=== PATIENT | male | born 1955 | race Caucasian/White ===

== ENCOUNTER 2024-06-12 08:56 | Outpatient (REF) | payer MEDICARE, SELFPAY ==
[2024-06-12 11:19] LABS: Blood Urea Nitrogen 15 mg/dL (9-16); Estimated Glomerular Filt Rate > 60
== END 2024-06-12 08:57 | disposition home or self-care (01) ==
LOC: HO.LAB 08:56
PROVIDERS: Visit Provider Surgery Vascular Surgery
DX: I71.43 Infrarenal abdominal aortic aneurysm, without rupture (principal)
CPT/HCPCS: 36415; 82565; 84520; 99202

== ENCOUNTER 2024-06-12 08:56 | Outpatient (AMB) | payer MEDICARE, SELFPAY ==
--- NOTE | 2024-06-12 09:08 | A.OFFVIS_ITS ---
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 Incidental finding after appendix burst. Patient states he has tender spot at the bottom of his sternum. No other complaints. 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 He has been previously managed by Dr. Nunez for this aneurysm at [facility] with surveillance scans due to its progressive enlargement. The patient denies any accompanying cardiovascular symptoms such as chest pain or arrhythmias and has no history of diabetes or renal disorders but has a significant family history of aneurysms, as his father experienced a thoracic aneurysm. He is a current smoker, consuming one pack of cigarettes per day. He has undergone multiple surgeries over the past year, including an appendectomy, inguinal hernia repairs, and a right knee replacement. Recently, the patient had to modify his health insurance, affecting his continuity in care. He now presents to us for vascular evaluation Review of Systems Const All systems reviewed & are unremarkable except as noted in HPI and below Reports no additional complaints ENT Reports Normal hearing present Card Denies chest pain, Denies chest pain at rest, Denies chest pain with activity and Denies pedal edema Resp Denies cough GI Denies abdominal pain Musc Denies abnormal gait, Denies muscle cramps and Denies radiating pain into limb Skin/Breast Denies skin ulcer and Denies wounds Neuro Reports Normal hearing present and Denies abnormal gait Psych Reports no additional complaints Physical Exam Const General: cooperative, healthy appearing and comfortable Orientation/consciousness: oriented to person, oriented to place and oriented to time HEENT Head: Yes normal to inspection Neck Neck: Yes normal visual inspection Carotids: no bruits Chest Chest palpation & inspection: normal inspection of the chest Resp Effort & Inspection: normal respiratory effort and able to speak in complete sentences Auscultation: clear to auscultation bilaterally, no crackles, no rales, no rhonchi and no wheezes Cardio Rate: regular rate Rhythm: regular rhythm Heart sounds: S1 normal heart sound present and S2 normal heart sound present Bruits: no carotid bruits Peripheral pulses: Peripheral pulses 2+ throughout GI Inspection: Yes normal to inspection Skin Wounds: no wounds Hair: normal Neuro General: oriented to person, oriented to place and oriented to time Cranial nerves: Yes CN's II-XII intact bilaterally and Yes Normal hearing present Cognition (Neuro): normal cognition Motor exam (neuro): 5/5 motor strength present throughout Extrem Other: venous exam: No significant superficial varicosities or spider telangiectasias, minimal edema General: No clubbing, No cyanosis and No edema Psych Appearance: grossly normal Mental Status: mental status grossly normal Speech and movement: Normal speech and movement present Results Reviewed Results Reviewed: CT scan written report from [facility] dated 2024 demonstrates a 5.1 x 5.5 cm abdominal aortic aneurysm. Neck of aneurysm is 1.3 cm from left lower renal artery. Aneurysm length is 9.5 cm. Written report reviewed only Assessment & Plan Assessment & Plan (1) AAA (abdominal aortic aneurysm) without rupture: Code(s): I71.40 - Abdominal aortic aneurysm, without rupture, unspecified Category: Medical Qualifiers: Abdominal aorta location: infrarenal aorta Qualified Code(s): I71.43 - Infrarenal abdominal aortic aneurysm, without rupture Plan: During the consultation, we discussed the current status of the patient's abdominal aortic aneurysm, highlighting the need for an updated CT scan to guide our surgical management decision. I explained the potential intervention options, notably the differences between open surgical repair and endovascular stent grafting, including the risks, benefits, and recovery times associated with each. The patient was informed about the role his smoking history plays in his vascular health and the importance of smoking cessation. In short we will get a CT scan in plan next steps of treatment from there. Patient was in agreement. We will try to expedite testing as soon as possible. Thank you for allowing us to assist in his care. The patient had an opportunity to ask questions regarding the treatment plan. All questions were answered. Imaging studies, laboratory studies and physical exam results were discussed and reviewed in detail. No major barriers to understanding were identified. The patient expressed understanding and agreement with the above treatment plan. The patient is aware they should contact our office by phone for worsening of the current condition or the appearance of new symptoms. Thank you for allowing me to participate in the vascular care of this patient. If you have any questions or concerns regarding the treatment for the above condition please do not hesitate to contact me. The office telephone contact is [phone]. This note is constructed using voice recognition software. While every effort has been made to ensure accuracy, electrical engineering director errors may have been included. Thank you for allowing me to participate in the care of your patient. Yours sincerely, Tho Storey MD, FACS, R.P.V.I. Orders: Orders Blood Urea Nitrogen Today I71.43 - Infrarenal abdominal aortic aneurysm, without rupture Creatinine Today I71.43 - Infrarenal abdominal aortic aneurysm, without rupture CT angio abdomen pelvis 1 Day I71.43 - Infrarenal abdominal aortic aneurysm, without rupture Patient Instructions: - Obtain the prescribed CT scan at [facility]s second floor. - Prior to the CT scan, complete blood work on the first floor of the [facility]. - Be prepared for additional specialist consultations to finalize the surgical plan. - Monitor and report any changes in symptoms, particularly if experiencing new or worsening pain. - Reduce smoking routine in preparation for surgery and for overall vascular health improvement. - Follow up with care providers for follow-up appointments and consultations as scheduled. Coding Level of Care Code New Pt Level 4 (41716) Complex EM visit Add On G2211 Diagnoses Infrarenal abdominal aortic aneurysm (AAA) without rupture I71.43 Abdominal aorta location: infrarenal aorta
--- OUTSIDE RECORDS SUMMARY | 2024-06-12 09:45 | XMS_ITS | Encounter Summary ---
Author Organization [employer] Address [address] [facility] 7t [place] [address] Care Team Providers Care Skeet Operator Name Role Phone Kathy Hernandez PA-C Primary Care Provider Unav ailable Encounter Details Date Type Department Care Team (Late st Contact Info) Description 08/02/2023 Orders Only [facility] MEDICAL [address] [place] [address] Kathy Hernandez PA-C Arthralgia of multiple joints Social History Tobacco Use Types Packs/Day Years Used Date Smoking Tobacco: Some Days Cigarettes Smokeless Tobacco: Never Alcohol Use Standard Drinks/Week Comments Not Asked 0 (1 standard drink = 0.6 oz pur e alcohol) moderate Sex and Gender Information Value Date Recorded Sex Assigned at Male 05/07/2022 1:28 PM EST Legal Sex Male 5:35 PM EDT Gender Identity Male 05/07/2022 1:28 PM EST Sexual Orientation Choose not to disclose 2022 1:28 PM EST documented as of this encounter Plan of Treatment Not on file documented as of this encounter Visit Diagnoses Diagnosis Arthralgia of multiple joints Pain in joint, multiple sites documented in this encounter Care Teams Skeet Operator Relationship Specialty Start Date End Date Kathy Hernandez PA-C PCP - General Family Medicine 05/06/22 documented as of this encounter
--- OUTSIDE RECORDS SUMMARY | 2024-06-12 09:45 | XMS_ITS | Encounter Summary ---
Author Organization [employer] Address [address] [facility] [address] [place] [address] Care Team Providers Care Glazier Apprentice Name Role Phone Kathy Hernandez PA-C Primary Care Provider Unav ailable Reason for Referral * Consultation (Urgent) - Pending Review Specialty Diagnoses / Procedures Referred By Contdunia t Referred To Contact Vascular Surgery Diagnoses Abdominal aortic aneurysm (AAA) without rupture, unspecified part ([facility]/HCC) Ashley Sanchez FNP [address] [place] [address] Phone: tel: fax: Tho Storey MD [address] [place] [address] Drive [address] [place] [address] Phone: tel: fax: Referral ID Status Reason Start Date Expiration Date Visits Requested Visits Authorized [id number] Pending Review Specialty Services Required 04/25/2024 04/25/2025 1 1 Reason for Visit * Reason Onset Date Comments Referral 04/23/2024 Encounter Details Date Type Department Care Team (Late st Contact Info) Description 04/23/2024 Telephone [facility] MEDICAL [address] [place] [address] Kathy Hernandez PA-C Referral Social History Tobacco Use Types Packs/Day Years Used Date Smoking Tobacco: Some Days Cigarettes Smokeless Tobacco: Never Alcohol Use Standard Drinks/Week Comments Not Asked 0 (1 standard drink = 0.6 oz pur e alcohol) moderate Alcohol Answer Date Recorded Frequency of Alcohol Consumption Not on file 01/09/2024 Average Number of Drinks Not on file 024 Frequency of Binge Drinking Not on file 12/20 Score 0 01/09/2024 Housing Stability Answer Date Recorded What is your housing situation today? I have daniel mahoney 10/13/[address] you li ve. Do you have problems with any of the following? None of the above 10/13/2023 Food Insecurity Answer Date Recorded Within the past 12 months, y ou worried that your food would run out before you got money to buy more: Never True 10/13/2023 Within the past 12 months,th e food you bought just didn't last and you didn't have enough money to get more: Never True Transportation Answer Date Recorded In the past 12 months, has l ack of transportation kept you from medical appts, meetings, work or from getting things needed for daily living? No 10/13/2023 Utilities Answer Date Recorded In the past 12 months, has t he electric, gas, oil or water company threatened to shut off services in your home? No 10/13/2023 Depression Answer Date Recorded Patient Health Questionnaire-2 Score 0 10/13/2023 Internet Access Answer Date Recorded Internet Access Q1 Yes 11/21/2023 Internet Access Q2 Not on file 11/21/2023 Sex and Gender Information Value Date Recorded Sex Assigned at Male 05/07/2022 1:28 PM EST Legal Sex Male 5:35 PM EDT Gender Identity Male 05/07/2022 1:28 PM EST Sexual Orientation Choose not to disclose 2022 1:28 PM EST documented as of this encounter Miscellaneous Notes * Telephone Encounter - Carolyn Childers - 05/15/2024 1:40 PM EST Called [facility] and refaxed referral. LVM for patient with update. * Telephone Encounter - Pattie García - 05/08/2024 9:23 AM EST Pt LMOM, has not heard back about referral and unsure how to proceed * Telephone Encounter - Anika Rothman LPN - 04/25/2024 2:31 PM EST Pt notified that referral has been placed. * Telephone Encounter - Anika Rothman LPN - 04/25/2024 2:29 PM EST Images from the original note were not included. DAVID Marino to [facility] 04/25/24 2:13 PM Ordered, please let patient know , referrals please help coordinate previously for urgent referral/transfer * Telephone Encounter - Ruma Schaffer RN - 04/25/2024 12:26 PM EST In summary: pt has been followed by vascular surgery for an abdominal aneurysm since it was discovered incidentally during a hospitalization for appendicitis December 2022. Most recent OV was 04/11/24 with [facility] surgeon Bruno. Note is in chart. Note and pt's understanding suggest that the aneurysm is growing and it is time to do something about it. Note states pt should have a stress test prior to scheduling abdominal aneurysm repair. After this visit, pt was notified that his insurance is no longer taken by [facility]. He was told to geta new referral to [facility] vascular surgeon MD Storey. Pt wants to get this going RADHA. He has [employer] [facility] Medicare. Pt seemed a bit unsure if he still has Medicaid as well. I offered a call from health ins navigator to sort this out but pt declined, stating he needs to focus on getting the aneurysm taken care of first. Pt says he goes to [place] for month of May, but it is unclear if he would stay in [place] to deal with aneurysm. Sending to covering PCP KG for urgent referral to [facility] MD Storey for abd aortic aneurysm. Consider referral to cardiology or wait for [place] provider to eval need for stress test. * Telephone Encounter - Ruma Schaffer RN - 04/25/2024 12:22 PM EST LM for CB from original caller Juani Tony at number provided. VM did not identify where she was calling from but search pulls up a [facility] surgical service. * Telephone Encounter - Wendy Vizcaino - 04/25/2024 11:23 AM EST Encounter on [facility] site: [facility] not contracted with insurance. Patient now how [employer] Medicare which is not contracted at [facility] and he does not have out of network benefits. Office gave patient the number to Dr. Storey at [place], phone [phone]. Office will fax his records when he has an office visit scheduled. * Telephone Encounter - Pattie García - 04/25/2024 9:53 AM EST Pt LMOM checking in about this * Telephone Encounter - Pattie García - 04/23/2024 2:38 PM EST [facility] LMOM Needs new vascular surgeon and echo; requesting cb to discuss faxes so he may continue getting treatment Cb# [phone] * Telephone Encounter - Pattie García - 04/23/2024 2:23 PM EST Pt LMOM 04/20 Will need a new referral for vascular tests/procedures because can no longer be in the [facility] program Anxious about getting new referral RADHA because he is in the middle of aneurysm treatment documented in this encounter Plan of Treatment Scheduled Referrals Name Type Priority Associated Diagnoses Orde r Schedule Referral to Vascular Surgery Outpatient Referral Urgent Abdominal aortic aneurysm (AAA) without rupture, unspecified part ([facility]) Expected: 04/25/2024 (Approximate), Expires: 04/25/2025 documented as of this encounter Visit Diagnoses Diagnosis Abdominal aortic aneurysm (AAA) without rupture, unspecified part ([facility])- Primary documented in this encounter Care Teams Glazier Apprentice Relationship Specialty Start Date End Date Kathy Hernandez PA-C PCP - General Family Medicine 05/06/22 documented as of this encounter
--- OUTSIDE RECORDS SUMMARY | 2024-06-12 09:45 | XMS_ITS | Encounter Summary ---
Author Organization [employer] Address [address] [place] [address] 7t [place] [address] Care Team Providers Care Spinning Frame Cleaner Name Role Phone Kathy Hernandez PA-C Primary Care Provider Unav ailable Encounter Details Date Type Department Care Team (Late st Contact Info) Description 04/14/2023 Orders Only [facility] [address] [place] [address] Kathy Hernandez PA-C Social History Tobacco Use Types Packs/Day Years [...] on file documented as of this encounter Procedures Procedure Name Priority Date/Time Associated Diagnosis Comments PATHOLOGY REPORT (HISTOPATHOLOGY) Routine 04/08/2023 documented in this encounter Results * Pathology Report (04/08/2023) Tissue us Kathy Hernandez PA-C LAB PATHOLOGY ORDERABLES Ed ited Result - Final documented in this encounter Visit Diagnoses Not on filedocumented in this encounter Care Teams Spinning Frame Cleaner Relationship Specialty Start Date End Date Kathy Hernandez PA-C PCP - General Family Medicine 05/06/22 documented as of this encounter
--- OUTSIDE RECORDS SUMMARY | 2024-06-12 09:45 | XMS_ITS | Encounter Summary ---
Author Organization [employer] Address [address] [facility] 7t [place] [address] Care Team Providers Care Webbing Inspector Name Role Phone Kathy Hernandez PA-C Primary Care Provider Unav ailable Encounter Details Date Type Department Care Team (Latest Contact Info) Description 01/14/2021 Abstract [facility] CONVERSIONS Dental, Provider, DDS Social History Tobacco Use Types Packs/Day Years Used Date Smoking Tobacco: Never Assessed Sex and Gender Information Value Date Recorded Sex Assigned at Male 05/07/2022 1:28 PM EST Legal Sex Male 5:35 PM EDT Gender Identity Male 05/07/2022 1:28 PM EST Sexual Orientation Choose not to disclose 2022 1:28 PM EST documented as of this encounter Plan of Treatment Not on file documented as of this encounter Visit Diagnoses Not on filedocumented in this encounter Care Teams Webbing Inspector Relationship Specialty Start Date End Date Kathy Hernandez PA-C PCP - General Family Medicine 05/06/22 documented as of this encounter
--- OUTSIDE RECORDS SUMMARY | 2024-06-12 09:45 | XMS_ITS | Encounter Summary ---
Author Organization [employer] Address [address] [facility] 7t [place] [address] Care Team Providers Care Sticker Hand Name Role Phone Kathy Hernandez PA-C Primary Care Provider Unav ailable Encounter Details Date Type Department Care Team (Late st Contact Info) Description 05/06/[address] [facility] MEDICAL [address] [place], [place] [id number] Kathy Hernandez PA-C Social History Tobacco Use [...] Procedure Name Priority Date/Time Associated Diagnosis Comments HEMOGLOBIN A1C Routine 07/20/2022 8:33 AM EDT COMPREHENSIVE METABOLIC PANEL Routine 07/20/2022 8:33 AM EDT documented in this encounter Results * (ABNORMAL) Comprehensive Metabolic Panel (07/20/2022 8:33 AM EDT) Glucose 127(H) (70-99) MG/DL [facility] BUN 13 (8-23) MG/DL [facility] Creatinine, Serum 1.2 (0.7-1.2) MG/DL [facility] Sodium 139 (133-145) MMOL/L [facility] Potassium 5.2 (3.6-5.2) MMOL/L [facility] Chloride 102 (98-107) MMOL/L [facility] Bicarbonate 23 (22-29) MMOL/L [facility] Anion Gap 14 (4-17) [facility] Albumin 4.6 (3.4-4.8) GM/DL [facility] Calcium 10.0 (8.6-10.5) MG/DL [facility] Bilirubin, Total 0.6 (0-1.2) MG/DL [facility] Total Protein 6.9 (6.2-8.2) GM/DL [facility] Albumin/Globulin Ratio 2.0 [facility] AST 29 (0-40) U/L [facility] Alkaline Phosphatase 72 (40-129) U/L [facility] ALT (SGPT) 53(H) (0-41) U/L [facility] eGFR Creatinine 67 ML/MIN/1.7 3 M2 [facility] Comment: Creatinine based estimated glomerular filtration (eGFR) in adults is calculated using the National Kidney Foundation recommended 2020 CKD-EPI equation. Estimates GFR from serum creatinine, age and sex. Testing performed or reported by [facility], a Service of [facility], [address] [place] [id number] Ann-Marie Cervantes MD, Cashier Wrapper [facility]# [id number] 07/20/2022 8:33 AM EDT 07/20/2022 8:34 AM EDT Kathy Hernandez PA-C LAB BLOOD ORDERAB[place] [address] * (ABNORMAL) Hemoglobin A1c (07/20/2022 8:33 AM EDT) Hemoglobin A1C 6.2(H) (4.0-5.6) % [facility] Comment: MONITORING: In known diabetic patients, hemoglobin A1c targets should be discussed with health care provider. DIAGNOSTIC USE: ??The [place] Diabetes Association (ADA) and the World Health Organization (WHO) recommend the use of HbA1c to diagnose diabetes using a threshold of 6.5%. Patients who have an HbA1c between 5.7% and 6.4% are considered at increased risk for developing diabetes in the future. CAUTION: Falsely low HbA1c results may be observed in patients with hemolytic anemia, homozygous forms of abnormal hemoglobin (e.g. SS, CC, SC), , recent blood loss or hemoglobin F greater than 7%. Fructosamine may be used as an alternate test in these cases. REFERENCE: ADA: Standards of Medical Care in Diabetes 2020, The Journal of Clinical and Applied Research and Education Volume 43, Supplement 1 Testing performed or reported by [facility], a Service of [facility], [address] [place] [id number] Ann-Marie Cervantes MD, Cashier Wrapper [facility]# [id number] 07/20/2022 8:33 AM EDT 07/20/2022 8:34 AM EDT Kathy Hernandez PA-C LAB BLOOD ORDERABLES Final Result [facility] [address] [place] [id number] documented in this encounter Visit Diagnoses Not on filedocumented in this encounter Care Teams Sticker Hand Relationship Specialty Start Date End Date Kathy Hernandez PA-C PCP - General Family Medicine 05/06/22 documented as of this encounter
--- OUTSIDE RECORDS SUMMARY | 2024-06-12 09:45 | XMS_ITS | Encounter Summary ---
Author Organization [employer] Address [address] [facility] 7t [place] [address] Care Team Providers Care Trademark Paralegal Name Role Phone Kathy Hernandez PA-C Primary Care Provider Unav ailable Encounter Details Date Type Department Care Team (Latest Contact Info) Description 07/07/2021 Abstract [facility] CONVERSION[facility] Dental, Provider, DDS Social [...] on filedocumented in this encounter Care Teams Trademark Paralegal Relationship Specialty Start Date End Date Ktahy Hernandez PA-C PCP - General Family Medicine 05/06/22 documented as of this encounter
--- OUTSIDE RECORDS SUMMARY | 2024-06-12 09:45 | XMS_ITS | Clinical Summary ---
Author Organization [employer] Address [address] [facility] [address] [place] [address] Care Team Providers Care Internal Combustion Engine Inspector Name Role Phone Kathy Hernandez PA-C Primary Care Provider Unav ailable Allergies No known active allergies Medications fluocinonide (Lidex) 0.05 % cream APPLY TO TRUNK, ARMS, LEGS TWICE A DAY NEEDED FOR FLARES 2 Active metFORMIN (Glucophage) 500 MG tablet TAKE 1 TABLET (500 MG) BY MOUTH WITH BREAKFAST 90 tablet 5 04/12/19 26 Active Active Problems Problem Noted Date Diagnosed Date Abdominal aortic aneurysm (AAA) without rupture 04/14/2023 Overview (01/13/2024): Incidental finding when he had appendectomy. 1.9 cm, following vascular, Dr. Rodrigues. Had appt 09/2023. Is being monitored every 3 months Acute gout involving toe of left foot 05/10/2022 Overview (05/10/2022): First episode 05/01/22 tx with steroids at . No current sx Arthralgia of multiple joints 05/06/2022 Overview (04/14/2023): Right knee OA, unable to get replacement due to dental issues. Wants referral back to get injections. Also needs note to get out of jury duty due to chronic pain in knee and left ankle. Chronic obstructive pulmonary disease 05/06/2022 Overview (01/13/2024): Denies trouble breathing. Not on any inhalers. Stable at this time Elevated alanine aminotransferase (ALT) level Overview (05/10/2022): Will check labs Essential hypertension 05/06/2022 Overview (01/13/2024): No longer taking. Valsartan 160mg and amlodipine 5 mg. BP stable today. Has been controlled at home and when he visit other specialists. Discussed increased CV risks of uncontrolled hypertension. Stressed he monitor closely at home. Counseled on low salt diet and exercise. ETOH abuse 05/06/2022 Overview (05/10/2022): Drinks beer, encouraged to quit Hypertriglyceridemia 05/06/2022 Overview (11/08/2022): Lipid panel 07/2022 Counseled on diet and exercise Cholesterol, Total (<200) MG/DL 204??High?? Triglyceride (mg/dL) in Serum/Plasma (<150) MG/DL 261??High?? HDL Cholesterol (>39) MG/DL 43 37 R LDL Cholesterol, Calculated (0-130) MG/DL 109 Non HDL Chol. (LDL+VLDL) (<160) MG/DL 161??High?? Non-recurrent bilateral ingu inal hernia without obstruction or gangrene 05/06/2022 Overview (10/13/2023): Has b/l inguinal hernia. S/p repair 06/24/23 Prediabetes 05/06/2022 Overview (11/08/2022): No longer on metformin, last A1C 07/2022 6.2% Smoker 05/06/2022 Overview (05/10/2022): 1/2 ppd. Declines LDCT Resolved Problems Problem Noted Date Diagnosed Date Resolved Date Irritant contact dermatitis due to metals 05/06/2022 05/07/2022 Encounters Date Type Department Care Team Description 06/01/2024 Population Health Risk Score [facility] (C3) Department [address] [place] [address] Provider, Population Health Generic 04/23/2024 Telephone Meng [facility] [address] [place] [address] Kathy Hernandez PA-C Referral 04/12/2024 Refill [place] [address] [place] [address] Ashley Sanchez FNP from Last 3 Months Immunizations Name Administration Dates Next Due Tdap 11/08/2022 Family History Medical History Relation Name Comments Diabetes Mother Parkinsonism Mother Relation Name Status Comments Father Alive alive 88 yrs, C hronic leg and back pain but still lives independently Mother 82 years old Social History Tobacco Use Types Packs/Day Years Used Date Smoking Tobacco: Some Days Cigarettes Smokeless Tobacco: Never Tobacco Cessation:Ready to Q uit: Not Asked; Counseling Given: Not Answered Alcohol Use Standard Drinks/Week Comments Not Asked [...] not to disclose 2022 1:28 PM EST Last Filed Vital Signs Vital Sign Reading Time Taken Comments Blood Pressure 118/70 01/09/2024 9:00 AM EDT Pulse 80 01/09/2024 9:00 AM EDT Temperature 36.3 ??C (97.4 ??F) 01/09/2024 9:00 AM ED T Respiratory Rate 16 01/09/2024 9:00 AM EDT Oxygen Saturation 94% 11/14/2020 10:30 AM EDT Inhaled Oxygen Concentration - - Weight 92.1 kg (203 lb) 01/09/2024 9:00 AM EDT Height 180.3 cm (5' 11 ) 01/09/2024 9:00 AM EDT Body Mass Index 28.31 01/09/2024 9:00 AM EDT Plan of Treatment Health Maintenance Due Date Last Done Comments CT Colonography 1957 Dental Prophylaxis 1957 FIT DNA/Cologuard 1957 FIT 1957 FOBT 1957 Sigmoidoscopy 1957 Dental Oral Exam 07/16/2021 01/14/2021 Dental X-Ray: Bitewings 01/15/2022 01/14/2021 Colonoscopy 11/20/2023 12/16/2020 Colorectal Cancer Screening 11/20/2023 Dental X-Ray: Full Mouth 01/16/2024 01/14/2021 Influenza Vaccine (#1) 2024 Postp oned from 11/20/2023 (Patient Refused) Depression Screening 10/12/2024 10/13/2023, 10/13/19 24 SDOH Screening 10/12/2024 10/13/2023 Diabetes: Hemoglobin A1C 12/27/2024 024, 07/20/2022, 11/17/2020, Additional history exists Alcohol/Substance Use Screening 01/08/2025 01/09/2024 COVID-19 Vaccine ( season) 2025 Postponed from 11/20/2023 (Patient Refused) Hepatitis C Screening 01/08/2025 Postpo ifeoma from 1975 (Patient Refused) Pneumococcal Vaccine: 50+ Years (1 of 2 - PCV) 01/08/2025 Postponed from 1976 (Patient Refused) RSV Patients and Patients Aged 60 years or older (1 - Risk 60-74 years 1-dose series) 01/08/2025 Postponed from 2017 (Other Patient Reasons) Tobacco Screening 01/08/2025 01/09/2024 Zoster Vaccines (1 of 2) 01/08/2025 Pos tponed from 2007 (Patient Refused) Lipid Panel 12/27/2028 12/28/2023, 0504/2022, 11/17/2020, Additional history exists DTaP/Tdap/Td Vaccines (2 - Td or Tdap) 11/08/2032 11/08/2022 HIB Vaccines Aged Out No longer eligi ble based on patient's age to complete this topic HPV Vaccines Aged Out No longer eligi ble based on patient's age to complete this topic Hepatitis A Vaccines Aged Out No long er eligible based on patient's age to complete this topic Hepatitis B Vaccines Aged Out No long er eligible based on patient's age to complete this topic IPV Vaccines Aged Out No longer eligi ble based on patient's age to complete this topic Meningococcal Vaccine Aged Out No james hollie eligible based on patient's age to complete this topic RSV under 20 months Aged Out No longe r eligible based on patient's age to complete this topic Rotavirus Vaccines Aged Out No longer eligible based on patient's age to complete this topic Procedures Procedure Name Priority Date/Time Associated Diagnosis Comments HEMOGLOBIN A1C Routine 12/28/2023 8:51 AM EDT Prediabetes LIPID PANEL, STANDARD Routine 12/28/2023 8:51 AM EDT Hypertriglyceridem ia INTRAORAL - COMPLETE SERIES OF RADIOGRAPHIC IMAGES Routine 01/14/2021 12:00 AM EDT COMPREHENSIVE ORAL EVALUATION - NEW OR ESTABLISHED PATIENT Routine 01/14/2021 12:00 AM EDT COLONOSCOPY Routine 12/16/2020 12:00 AM EDT from Last 3 Months or Most Recently Relevant to Health Maintenance Results * (ABNORMAL) Hemoglobin A1c (12/28/2023 8:51 AM EDT) Hemoglobin A1c 6.6(H) 4.8 - 5.6 % [facility] Comment: ? Prediabetes: 5.7 - 6.4 ? Diabetes: >6.4 ? Glycemic control for adults with diabetes: <7.0 Blood Venous blood specimen / Unknown 12/28/2023 8:51 AM EDT 12/28/2023 Narrative [facility] 1 - 12/29/2023 12:05 AM EDT Performed at: ??01 - [facility] [address] ??[id number] Research Geneticist: Kandi Posey MD, Phone: ??[phone] Kathy Hernandez PA-C LAB BLOOD ORDERABLES Final Result Performing Organization Address [facility] de Phone Number [facility] * (ABNORMAL) Lipid Panel, Standard (12/28/2023 8:51 AM EDT) Cholesterol, Total 183 100 - 199 mg/dL [facility] Triglycerides 224(H) 0 - 149 mg/dL [facility] 1 HDL Cholesterol 41 >39 mg/dL [facility] 1 VLDL Cholesterol Dada 39 5 - 40 mg/dL [facility] 1 LDL Chol Calc (NIH) 103(H) 0 - 99 mg/dL [facility] 1 Blood Venous blood specimen / Unknown 12/28/2023 8:51 AM EDT 12/28/2023 Narrative [facility] 1 - 12/29/2023 6:05 AM EDT Performed at: ??01 - [facility] [address] ??[id number] Research Geneticist: Kandi Posey MD, Phone: ??[phone] Kathy Hernandez PA-C LAB BLOOD ORDERABLES Final Result Performing Organization Address City/[facility]/ZIP Co de Phone Number [facility] * COLONOSCOPY (12/16/2020 12:00 AM EDT) Anatomical Region Laterality Modality Endoscopy 12/16/2020 Narrative 12/16/2020 12:00 AM EDT Refer to Fovea for result details [facility] Procedure: COLONOSCOPY Procedure Note Provider, Elizabet, - 07/15/2022 Refer to Fovea for result details [facility] Procedure: COLONOSCOPY Historical Provider ENDOSCOPY PROCEDURE ORDER EMIL Final Result from Last 3 Months or Most Recently Relevant to Health Maintenance Insurance MEDICARE [facility] MEDICARE ADVANTAGE HMO [facility] MEDICAID STAND ADULT Member Subscriber Plan / Payer ( fective 2022-Present) Name:Edwin, Sergio Romel Relation to Subscriber:Self Name:Edwin Sergio Romel Payer ID:Not on file Group ID:Not on file Type:Not on file Address: [address] [facility] MEDICAID STAND ADULT Member Subscriber Plan / Payer ( fective 2022-Present) Name:Edwin, Sergio Urena Relation to Subscriber:Self Name:Edwin, Sergio Romel Payer ID:Not on file Group ID:Not on file Type:Not on file Address: [place] [phone] Care Teams Internal Combustion Engine Inspector Relationship Specialty Start Date End Date Kathy Hernandez PA-C PCP - General Family Medicine 05/06/22
--- OUTSIDE RECORDS SUMMARY | 2024-06-12 09:45 | XMS_ITS | Encounter Summary ---
Author Organization [employer] Address [address] [facility] 7t [place] [address] Care Team Providers Care Industrial Safety And Health Specialist Name Role Phone Kathy Hernandez PA-C Primary Care Provider Tiana ailable Encounter Details Date Type Department Care Team (Late st Contact Info) Description 06/01/2024 Population Health Risk Score [facility] (C3) Department [address] [facility] [address] [place] [address] Provider, Population Health Generic Social History Tobacco Use Types Packs/Day Years [...] on filedocumented in this encounter Care Teams Industrial Safety And Health Specialist Relationship Specialty Start Date End Date Kathy Hernandez PA-C PCP - General Family Medicine 05/06/22 documented as of this encounter
== END 2024-06-12 09:39 | disposition home or self-care (01) ==
LOC: HO.HVS 08:57
PROVIDERS: Visit Provider Surgery Vascular Surgery
DX: I71.43 Infrarenal abdominal aortic aneurysm, without rupture (principal)
CPT/HCPCS: 99204; G2211

== ENCOUNTER 2024-06-25 12:54 | Outpatient (REF) | payer MEDICARE, SELFPAY ==
--- NOTE | ~2024-06-25 | CT_ITS ---
EXAMINATION: CT ABDOMEN PELVIS ANGIOGRAPHY WITH IV CONTRAST HISTORY: I71.43 - Infrarenal abdominal aortic aneurysm, without rupture COMPARISON: There are no prior studies for comparison. TECHNIQUE: CT angiogram of the abdomen and pelvis was performed following administration of 80 mL Omnipaque 350 using standard departmental protocol. The contrast bolus was timed to maximally opacify the vascular system. Coronal and sagittal reformatted images were generated and reviewed. This CT exam was performed with one or more of the following dose reduction techniques: automated exposure control, adjustment of the mA and/or kV according to patient size, use of iterative reconstruction technique. DLP: 454 mGy-cm FINDINGS: LOWER CHEST: The visualized lung bases are clear. There is no pleural effusion. CARDIOVASCULATURE: The heart is normal in size. There is no pericardial effusion. LIVER: The liver is normal in size and contour. A tiny subcentimeter hypodensity is noted in the inferior aspect of the liver which is too small to accurately characterize. The hepatic and portal veins are patent. GALLBLADDER / BILE DUCTS: The gallbladder is unremarkable. There is no intra or extrahepatic biliary ductal dilatation. SPLEEN: The spleen is normal in size. No focal splenic lesion is identified. PANCREAS: The pancreas is unremarkable in appearance. ADRENAL GLANDS: Within normal limits. KIDNEYS/RETROPERITONEUM: No renal calculi are identified. There is no hydronephrosis. No renal masses are identified. LYMPH NODES: No abdominal or pelvic lymphadenopathy. VASCULATURE: There is aneurysmal dilatation of the abdominal aorta which begins just below the origins of the bilateral renal arteries and ends at the level of the origin of the ELVIS. A large amount of mural thrombus is seen at the anterior aspect of the aneurysm. The aneurysm measures 5.3 cm in transverse dimension by 5.1 cm in AP dimension. There is no evidence of aneurysm leak. There is mild dilatation of the right common iliac artery measuring 1.6 cm in diameter (the left common iliac artery measures 0.9 cm in diameter). There is a moderate stenosis of the origin of the celiac axis. The superior mesenteric and inferior mesenteric arteries are widely patent. The bilateral renal arteries are patent. The bilateral external iliac arteries demonstrate mild atherosclerotic irregularity. There is likely a mild stenosis of the right external iliac artery. MESENTERY/PERITONEUM: No free fluid. No masses. There is no free intraperitoneal gas. STOMACH: The stomach is collapsed, limiting evaluation. SMALL BOWEL: The small bowel is normal in caliber. COLON: The colon is unremarkable. APPENDIX: Normal. URINARY BLADDER/PELVIC ORGANS: The urinary bladder is unremarkable. The prostate is normal in size. BONES / SOFT TISSUES: An anterior abdominal wall mesh is seen in place. The bones are intact. CT/CT angio abdomen pelvis IMPRESSION: Infrarenal abdominal aortic aneurysm measuring 5.3 x 5.1 cm in transverse and AP diameter. Comparison with prior outside studies is recommended. Please see additional comments above. Electronically signed by: Glen Wilson MD 06/25/2024 01:49 PM EDT
[2024-06-25] MEDS: iohexoL 350 MG/ML 100 ML INFUS..BTL IV (13:31)
--- OUTSIDE RECORDS SUMMARY | 2024-06-25 15:13 | XMS_ITS | Encounter Summary ---
Author Organization [employer] Address [address] [facility] 7t [place] [address] Care Team Providers Care Industrial Maintenance Repairer Helper Name Role Phone Kathy Hernandez PA-C Primary [...] filedocumented in this encounter Care Teams Industrial Maintenance Repairer Helper Relationship Specialty Start Date End Date Kathy Hernandez PA-C PCP - General Family Medicine 05/06/22 documented as of this encounter
--- OUTSIDE RECORDS SUMMARY | 2024-06-25 15:13 | XMS_ITS | Encounter Summary ---
Author Organization [employer] Address [address] [facility] 7t [place] [address] Care Team Providers Care Metal Filer Name Role Phone Kathy Hernandez PA-C Primary Care Provider Unav ailable Encounter Details Date Type Department Care Team (Late st Contact Info) Description 05/06/2022 Orders Only [facility] [address] [place], [place] [id number] Kathy Hernandez PA-C Social History Tobacco Use [...] 8:33 AM EDT) Glucose 127(H) (70-99) MG/DL [facility] BUN 13 (8-23) MG/DL [facility] Creatinine, Serum 1.2 (0.7-1.2) MG/DL [facility] Sodium 139 (133-145) MMOL/L [facility] Potassium 5.2 (3.6-5.2) MMOL/L [facility] Chloride 102 (98-107) MMOL/L [facility] Bicarbonate 23 (22-29) MMOL/L [facility] Anion Gap 14 (4-17) [facility] Albumin 4.6 (3.4-4.8) GM/DL [facility] Calcium 10.0 (8.6-10.5) MG/DL [facility] Bilirubin, Total 0.6 (0-1.2) MG/DL [facility] Total Protein 6.9 (6.2-8.2) GM/DL [facility] Albumin/Globulin Ratio 2.0 [facility] AST 29 (0-40) U/L [facility] Alkaline Phosphatase 72 (40-129) U/L [facility] ALT (SGPT) 53(H) (0-41) U/L [facility] eGFR Creatinine 67 ML/MIN/1.7 3 M2 [facility] Comment: Creatinine based estimated glomerular filtration (eGFR) in adults is calculated using the National Kidney Foundation recommended 2020 CKD-EPI equation. Estimates GFR from serum creatinine, age and sex. Testing performed or reported by [facility], a Service of [facility], [address] [place] [id number] Ann-Marie Cervantes MD, Medical Driver [facility]# [id number] 07/20/2022 8:33 AM EDT 07/20/2022 8:34 AM EDT Kathy Hernandez PA-C LAB BLOOD [place] [address] * (ABNORMAL) Hemoglobin A1c (07/20/2022 8:33 AM EDT) Hemoglobin A1C 6.2(H) (4.0-5.6) % [facility] Comment: MONITORING: In known diabetic patients, hemoglobin A1c targets should be discussed with health care provider. DIAGNOSTIC USE: ??The Citizen Of [place] Diabetes Association (ADA) and the World Health [...] Supplement 1 Testing performed or reported by [facility], a Service of [facility], [address] [place] [id number] Ann-Marie Cervantes MD, Medical Driver [facility]# [id number] 07/20/2022 8:33 AM EDT 07/20/2022 8:34 AM EDT Kathy Hernandez PA-C LAB BLOOD ORDERABLES Final Result [facility] [address] [place] [phone] documented in this encounter Visit Diagnoses Not on filedocumented in this encounter Care Teams Metal Filer Relationship Specialty Start Date End Date Kathy Hernandez PA-C PCP - General Family Medicine 05/06/22 documented as of this encounter
--- OUTSIDE RECORDS SUMMARY | 2024-06-25 15:13 | XMS_ITS | Encounter Summary ---
Author Organization [employer] Address 75 [facility] 7t [place] [address] Care Team Providers Care Shellfish Manager Name Role Phone Kathy Hernandez PA-C Primary [...] on filedocumented in this encounter Care Teams Shellfish Manager Relationship Specialty Start Date End Date Kathy Hernandez PA-C PCP - General Family Medicine 05/06/22 documented as of this encounter
--- OUTSIDE RECORDS SUMMARY | 2024-06-25 15:13 | XMS_ITS | Encounter Summary ---
Author Organization [employer] Address 75 [facility] 7t [place] [address] Care Team Providers Care Display Mechanic Name Role Phone Kathy Hernandez PA-C Primary Care Provider Unav ailable Encounter Details Date Type Department Care Team (Late st Contact Info) Description 08/02/2023 Orders Only [facility] [address] [place] [address] Kathy Hernandez PA-C Arthralgia of multiple joints [...] sites documented in this encounter Care Teams Display Mechanic Relationship Specialty Start Date End Date Kathy Hernandez PA-C PCP - General Family Medicine 05/06/22 documented as of this encounter
--- OUTSIDE RECORDS SUMMARY | 2024-06-25 15:13 | XMS_ITS | Encounter Summary ---
Author Organization [employer] Address 75 [facility] 7[address] [place] [address] Care Team Providers Care Loss Prevention Manager Name Role Phone Kathy Hernandez PA-C Primary Care Provider Unav ailable Encounter Details Date Type Department Care Team (Late st Contact Info) Description 04/14/2023 Orders Only [facility] [address] [place] [address] Kathy Hernandez PA-C Social History Tobacco Use [...] on filedocumented in this encounter Care Teams Loss Prevention Manager Relationship Specialty Start Date End Date Kathy Hernandez PA-C PCP - General Family Medicine 05/06/22 documented as of this encounter
--- OUTSIDE RECORDS SUMMARY | 2024-06-25 15:13 | XMS_ITS | Clinical Summary ---
Author Organization [employer] Address [address] [facility] [address] [place] [address] Care Team Providers Care Inspector Plug Seam Name Role Phone Kathy Hernandez PA-C Primary [...] Team Description 06/01/2024 Population Health Risk Score [facility] (C3) Department [address] [place] [address] Provider, Population Health Generic 04/23/2024 Telephone Meng [facility] [address] [place] [address] Kathy Hernandez PA-C Referral 04/12/2024 Refill [facility] [address] [place] [address] Ashley Sanchez FNP from Last 3 Months [...] 1957 FIT 1957 FOBT 1957 Sigmoidoscopy 1957 Diabetes: Foot Exam 1967 Eye Exam 1967 Diabetes: Urine Protein Screening 1976 Dental Oral Exam 07/16/2021 01/14/2021 Dental X-Ray: Bitewings 01/15/2022 01/14/2021 Colonoscopy 11/20/2023 12/16/2020 Colorectal Cancer Screening 11/20/2023 Dental X-Ray: Full Mouth 01/16/2024 01/14/2021 Diabetes: Hemoglobin A1C 06/27/2024 024, 07/20/2022, 11/17/2020, Additional history exists Influenza Vaccine (#1) 2024 Postp oned from 11/20/2023 (Patient Refused) Depression Screening 10/12/2024 10/13/2023, 10/13/19 24 SDOH Screening 10/12/2024 10/13/2023 Lipid Panel 12/27/2024 12/28/2023, 05/0 04/2022, 11/17/2020, Additional history exists Alcohol/Substance Use Screening 01/08/2025 01/09/2024 COVID-19 Vaccine ( - season) 2025 Postponed from 11/20/2023 (Patient Refused) [...] 01/08/2025 Pos tponed from 2007 (Patient Refused) DTaP/Tdap/Td Vaccines (2 - Td or Tdap) [...] Procedure Name Priority Date/Time Associated Diagnosis Comments AMB REFERRAL TO VASCULAR SURGERY Urgent 06/12/2024 Abdominal aortic aneurysm (AAA) without rupture, unspecified part (CMS/HCC) HEMOGLOBIN A1C Routine 12/28/2023 8:51 AM EDT Prediabetes LIPID PANEL, STANDARD Routine 12/28/2023 8:51 AM EDT Hypertriglyceridemi a INTRAORAL - COMPLETE SERIES OF RADIOGRAPHIC IMAGES Routine 01/14/2021 12:00 AM EDT COMPREHENSIVE ORAL EVALUATION - NEW OR ESTABLISHED PATIENT Routine 01/14/2021 12:00 AM EDT COLONOSCOPY Routine 12/16/2020 12:00 AM EDT from Last 3 Months or Most Recently Relevant to Health Maintenance Results * Referral to Vascular Surgery (06/12/2024) Ashley Sanchez TEAM FACILITATOR OUTPATIENT REFERRAL ORDER EMIL Final Result * (ABNORMAL) Hemoglobin A1c (12/28/2023 8:51 AM EDT) Hemoglobin A1c 6.6(H) 4.8 - 5.6 % [facility] Comment: ? Prediabetes: 5.7 - 6.4 ? Diabetes: >6.4 ? Glycemic control for adults with diabetes: <7.0 Blood Venous blood specimen / Unknown 12/28/2023 8:51 AM EDT 12/28/2023 Narrative [facility] 1 - 12/29/2023 12:05 AM EDT Performed at: ??01 - [facility] [address] ??[id number] Wire Wrapping Machine Operator: Kandi Posey MD, Phone: ??[phone] Kathy Hernandez PA-C LAB BLOOD ORDERABLES Final Result [facility] * (ABNORMAL) Lipid Panel, Standard [...] AM EDT Performed at: ??01 - [facility] [address] ??[id number] Wire Wrapping Machine Operator: Kandi Posey MD, Phone: ??[phone] Kathy Hernandez PA-C LAB BLOOD ORDERABLES Final Result [facility] * COLONOSCOPY (12/16/2020 12:00 AM EDT) Anatomical Region Laterality Modality Endoscopy 12/16/2020 Narrative 12/16/2020 12:00 AM EDT Refer to Fovea for result details [facility] Procedure: COLONOSCOPY Procedure Note ProviderElizabet, - 07/15/2022 Refer to [facility]ovea for result details [facility] Procedure: COLONOSCOPY Historical Provider ENDOSCOPY PROCEDURE ORDER EMIL Final Result from Last 3 Months or Most Recently Relevant to Health Maintenance Insurance MEDICARE [facility] MEDICARE ADVANTAGE [facility] Care Teams Inspector Plug Seam Relationship Specialty Start Date End Date Kathy Hernandez PA-C PCP - General Family Medicine 05/06/22
== END 2024-06-25 12:55 | disposition home or self-care (01) ==
LOC: HO.CT 12:54
PROVIDERS: Visit Provider Surgery Vascular Surgery
DX: I71.43 Infrarenal abdominal aortic aneurysm, without rupture (principal)
CPT/HCPCS: 74174; Q9967

== ENCOUNTER → 2024-06-25 12:56 | Outpatient (BNV) | payer MEDICARE, SELFPAY | PROVIDERS: Visit Provider Radiology Diagnostic Radiology | DX: I71.43 Infrarenal abdominal aortic aneurysm, without rupture (principal) | CPT/HCPCS: 74174 ==

== ENCOUNTER 2024-07-03 10:47 | Outpatient (AMB) | payer MEDICARE, SELFPAY ==
--- NOTE | 2024-07-03 10:52 | A.OFFVIS_ITS ---
Vital Signs 07/03/24 10:53 Height 5 ft 10 in Weight 203 lb BMI 29.1 Intake Visit Reasons: follow up s/p CTA Abd/Pelvis 06/25/24 Intake Note: follow up CTA Abd/pelvis 06/25/24 for AAA, was being seen at [facility] previously Accompanied by: Self / Same As Patient Allergies No Known Allergies Allergy (Verified 07/03/24 10:56) HPI HPI follow up s/p CTA Abd/Pelvis 06/25/24: Details: The patient is a 69-year-old male presenting with an abdominal aortic aneurysm measuring 5.1 x 5.3 cm, identified in a CT scan performed on 04/04/2024. He has been previously managed by Dr. Nunez for this aneurysm at [facility] with survei llance scans due to its progressive enlargement. The patient denies any accompanying cardiovascular symptoms such as chest pain or arrhythmias and has no history of diabetes or renal disorders but has a significant family history of aneurysms, as his father experienced a thoracic aneurysm. He is a current smoker, consuming one pack of cigarettes per day. He has undergone multiple surgeries over the past year, including an appendectomy, inguinal hernia repairs, and a right knee replacement. Recently, the patient had to modify his health insurance, affecting his continuity in care. He now presents for surveillance follow-up with repeat CT angiogram. [facility] Surgical History (Updated 07/03/24 @ 10:58 by IMMANUEL Carl) History of arthroplasty of left ankle H/O hernia repair History of appendectomy Social History (Updated 07/03/24 @ 10:58 by IMMANUEL Carl) Patient Tobacco Use Status: Current everyday Tobacco user Cigarettes Per Day: 10 Review of Systems Const All systems reviewed & are unremarkable except as noted in HPI and below Reports no additional complaints ENT Reports Normal hearing present Card Denies chest pain, Denies chest pain at rest, Denies chest pain with activity and Denies pedal edema Resp Denies cough GI Denies abdominal pain Musc Denies abnormal gait, Denies muscle cramps and Denies radiating pain into limb Skin/Breast Denies skin ulcer and Denies wounds Neuro Reports Normal hearing present and Denies abnormal gait Psych Reports no additional complaints Physical Exam Vital Signs: BMI result Body Mass Index 29.1 Const General: cooperative, healthy appearing and comfortable Orientation/consciousness: oriented to person, oriented to place and oriented to time HEENT Head: Yes normal to inspection Neck Neck: Yes normal visual inspection Carotids: no bruits Chest Chest palpation & inspection: normal inspection of the chest Resp Effort & Inspection: normal respiratory effort and able to speak in complete sentences Auscultation: clear to auscultation bilaterally, no crackles, no rales, no rhonchi and no wheezes Cardio Rate: regular rate Rhythm: regular rhythm Heart sounds: S1 normal heart sound present and S2 normal heart sound present Bruits: no carotid bruits Peripheral pulses: Peripheral pulses 2+ throughout GI Inspection: Yes normal to inspection Skin Wounds: no wounds Hair: normal Neuro General: oriented to person, oriented to place and oriented to time Cranial nerves: Yes CN's II-XII intact bilaterally and Yes Normal hearing present Cognition (Neuro): normal cognition Motor exam (neuro): 5/5 motor strength present throughout Extrem Other: venous exam: No significant superficial varicosities or spider telangiectasias, minimal edema General: No clubbing, No cyanosis and No edema Psych Appearance: grossly normal Mental Status: mental status grossly normal Speech and movement: Normal speech and movement present Results Reviewed Results Reviewed: CT angiogram results reviewed from 06/25/2024 which demonstrates a 5.1 x 5.3 aortic aneurysm with right common iliac measuring 1.6 cm. Written report and images were reviewed. Assessment & Plan Assessment & Plan (1) AAA (abdominal aortic aneurysm) without rupture: Code(s): I71.40 - Abdominal aortic aneurysm, without rupture, unspecified Category: Medical Qualifiers: Abdominal aorta location: infrarenal aorta Qualified Code(s): I71.43 - Infrarenal abdominal aortic aneurysm, without rupture Plan: During the consultation, we discussed the current status of the patient's abdominal aortic aneurysm, highlighting the need for an updated CT scan to guide our surgical management decision. I explained the potential intervention optio ns, notably the differences between open surgical repair and endovascular stent grafting, including the risks, benefits, and recovery times associated with each. The patient was informed about the role his smoking history plays in his vascular health and the importance of smoking cessation. He will require endovascular aortic aneurysm repair with possible open repair he will require cardiac risk stratification prior to surgery. Thank you for allowing us to assist in his care. Should there be any questions or concerns please do not hesitate to contact us. Coding Level of Care Code Est Pt Level 4 (69625) Complex EM visit Add On G2211 Diagnoses Infrarenal abdominal aortic aneurysm (AAA) without rupture I71.43 Abdominal aorta location: infrarenal aorta
[2024-07-03 10:53] VITALS: BMI 29.1
--- OUTSIDE RECORDS SUMMARY | 2024-07-03 13:06 | XMS_ITS | Encounter Summary ---
Author Organization [employer] Address [address] [place] [address] 7t [place] [address] Care Team Providers Care Custom Miller Name Role Phone Kathy Hernandez PA-C Primary Care Provider Unav ailable Encounter Details Date Type Department Care Team (Late st Contact Info) Description 04/14/2023 Orders Only [facility] [address] [place] [address] Kathy Hernandez PA-C Social History Tobacco Use [...] on filedocumented in this encounter Care Teams Custom Miller Relationship Specialty Start Date End Date Katyh Hernandez PA-C PCP - General Family Medicine 05/06/22 documented as of this encounter
--- OUTSIDE RECORDS SUMMARY | 2024-07-03 13:06 | XMS_ITS | Encounter Summary ---
Author Organization [employer] Address [address] [facility] 7t [place] [address] Care Team Providers Care Esthetician Name Role Phone Kathy Hernandez PA-C Primary Care Provider Unav ailable Encounter Details Date Type Department Care Team (Late st Contact Info) Description 08/02/2023 Orders Only [facility] MEDICAL [address] [place] [address] Kathy Hernandez PA-C Arthralgia of multiple joints [...] sites documented in this encounter Care Teams Esthetician Relationship Specialty Start Date End Date Kathy Hernandez PA-C PCP - General Family Medicine 05/06/22 documented as of this encounter
--- OUTSIDE RECORDS SUMMARY | 2024-07-03 13:06 | XMS_ITS | Encounter Summary ---
Author Organization [employer] Address [address] [facility] 7t [place] [address] Care Team Providers Care Cash Manager Name Role Phone Kathy Hernandez PA-C [...] on filedocumented in this encounter Care Teams Cash Manager Relationship Specialty Start Date End Date Kathy Hernandez PA-C PCP - General Family Medicine 05/06/22 documented as of this encounter
--- OUTSIDE RECORDS SUMMARY | 2024-07-03 13:06 | XMS_ITS | Clinical Summary ---
Author Organization [employer] Address [address] [facility] [address] 7t [place] [address] Care Team Providers Care Digital Product Specialist Name Role Phone Kathy Hernandez PA-C [...] [facility] ([facility] Department [address] [place] [address] Provider, Population Health Generic 04/23/2024 Telephone Meng [facility] [address] [place] [address] Kathy Hernandez PA-C Referral 04/12/2024 Refill [place] [facility] [address] [place] [address] Ashley Sanchez FNP from Last 3 Months [...] Referral to Vascular Surgery (06/12/2024) Ashley Sanchez CABLE MACHINE OPERATOR OUTPATIENT REFERRAL ORDER EMIL Final Result * [...] AM EDT Performed at: ??01 - [facility] [address] ??[id number] Grave Digger: Kandi Posey MD, Phone: ??[phone] Kathy Hernandez PA-C LAB BLOOD ORDERABLES Final [...] AM EDT Performed at: ??01 - [facility] [address] ??[id number] Grave Digger: Kandi Posey MD, Phone: ??[phone] Kathy Hernandez PA-C LAB BLOOD ORDERABLES Final [...] Recently Relevant to Health Maintenance Insurance MEDICARE [facility] MEDICARE ADVANTAGE HMO [facility] STAND ADULT [facility] STAND ADULT Care Teams Digital Product Specialist Relationship Specialty Start Date End Date Kathy Hernandez PA-C PCP - General Family Medicine 05/06/22
--- OUTSIDE RECORDS SUMMARY | 2024-07-03 13:06 | XMS_ITS | Encounter Summary ---
Author Organization [employer] Address [address] [facility] 7t [place] [address] Care Team Providers Care Activities Volunteer Name Role Phone Kathy Hernandez PA-C Primary [...] on filedocumented in this encounter Care Teams Activities Volunteer Relationship Specialty Start Date End Date Kathy Hernandez PA-C PCP - General Family Medicine 05/06/22 documented as of this encounter
--- OUTSIDE RECORDS SUMMARY | 2024-07-03 13:06 | XMS_ITS | Encounter Summary ---
Author Organization [employer] Address [address] [facility] 7t [place] [address] Care Team Providers Care Hydroelectric Plant Electrician Name Role Phone Kathy Hernandez PA-C Primary Care Provider Unav ailable Encounter Details Date Type Department Care Team (Late st Contact Info) Description 05/06/2022 Orders Only [facility] MEDICAL [address] [place], [place] [id number] Kathy Hernandez PA-C Social History Tobacco Use [...] 8:33 AM EDT) Glucose 127(H) (70-99) MG/DL [facility] BUN 13 (8-23) MG/DL [facility] Creatinine, Serum 1.2 (0.7-1.2) MG/DL [facility] Sodium 139 (133-145) MMOL/L [facility] Potassium 5.2 (3.6-5.2) MMOL/L [facility] Chloride 102 (98-107) MMOL/L [facility] Bicarbonate 23 (22-29) MMOL/L [facility] Anion Gap 14 (4-17) [facility] Albumin 4.6 (3.4-4.8) GM/DL [facility] Calcium 10.0 (8.6-10.5) MG/DL [facility] Bilirubin, Total 0.6 (0-1.2) MG/DL [facility] Total Protein 6.9 (6.2-8.2) GM/DL [facility] Albumin/Globulin Ratio 2.0 [facility] AST 29 (0-40) U/L [facility] Alkaline Phosphatase 72 (40-129) U/L [facility] ALT (SGPT) 53(H) (0-41) U/L [facility] eGFR Creatinine 67 ML/MIN/1.7 3 M2 [facility] Comment: Creatinine based estimated glomerular filtration (eGFR) in adults is calculated using the National Kidney Foundation recommended 2020 CKD-EPI equation. Estimates GFR from serum creatinine, age and sex. Testing performed or reported by [facility], a Service of [facility], [address] [place] [address] Ann-Marie Cervantes MD, Fruit Raiser [facility]# [id number] 07/20/2022 8:33 AM EDT 07/20/2022 8:34 AM EDT Kathy Hernandez PA-C LAB [place]LO[place] [address] * (ABNORMAL) Hemoglobin A1c (07/20/2022 8:33 AM EDT) Hemoglobin A1C 6.2(H) (4.0-5.6) % [facility] Comment: MONITORING: In known diabetic patients, hemoglobin A1c targets should be discussed with health care provider. DIAGNOSTIC USE: ??The [place] Diabetes Association (ADA) and the World Health [...] Supplement 1 Testing performed or reported by [facility], a Service of [facility], [address] [place] [address] Ann-Marie Cervantes MD, Fruit Raiser [facility]# [id number] 07/20/2022 8:33 AM EDT 07/20/2022 8:34 AM EDT Kathy Hernandez PA-C LAB BLOOD ORDERABLES Final Result [facility] [address] [place] [id number] documented in this encounter Visit Diagnoses Not on filedocumented in this encounter Care Teams Hydroelectric Plant Electrician Relationship Specialty Start Date End Date Kathy Hernandez PA-C PCP - General Family Medicine 05/06/22 documented as of this encounter
== END 2024-07-03 11:27 | disposition home or self-care (01) ==
LOC: HO.HVS 10:47
PROVIDERS: PCP Nurse Practitioner Family; Visit Provider Surgery Vascular Surgery
DX: I71.43 Infrarenal abdominal aortic aneurysm, without rupture (principal)
CPT/HCPCS: 99214; G2211

== ENCOUNTER → 2024-07-03 10:47 | Outpatient (BNVA) | payer MEDICARE, SELFPAY | PROVIDERS: PCP Nurse Practitioner Family; Visit Provider Surgery Vascular Surgery | DX: I71.43 Infrarenal abdominal aortic aneurysm, without rupture (principal); F17.210 Nicotine dependence, cigarettes, uncomplicated | CPT/HCPCS: 99212 ==

== ENCOUNTER 2024-07-16 10:32 | Outpatient (AMB) | payer MEDICARE, SELFPAY ==
[2024-07-16 10:36] VITALS: BP 128/62; PULSE 76; BMI 28.5
--- NOTE | 2024-07-16 10:36 | A.OFFVIS_ITS ---
Vital Signs 07/16/24 10:36 Height 5 ft 10 in Weight 198 lb 6.656 oz BMI 28.5 BP 128/62 Blood Pressure Location Lt brachial Position Sitting Pulse 76 Pulse Source Monitor Intake Visit Reasons: Preop/ Cardiac clearance/ Dr Storey 08/06 surg Allergies No Known Allergies Allergy (Verified 07/03/24 10:56) Medication List - Last Reconciled 07/16/24 by Orlando Colon MD amlodipine 5 mg PO DAILY HPI Comments Details: Sergio is here for consultation regarding preoperative risk stratification for abdominal aortic aneurysm repair. In the past, it seems he has been monitored at [facility] but has now switched over to [place]. History of thoracic aortic aneurysm in father, possible ascending aortic as he also describes concurrent valve replacement. Otherwise, patient denies any history of coronary disease or myocardial infarction or cardiomyopathy or in fact anything cardiac related. 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 However, he has no cardiac-related complaints or symptoms. Smoker. On blood pressure medication. 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 He notes significant physical strain as part of his previous occupational activities, such as lifting heavy concrete covers and handling hoses. He is currently not active following disability status and physical limitations. [facility] Medical History (Updated 07/16/24 @ 11:05 by Orlando Colon MD) Primary hypertension Surgical History (Updated 07/03/24 @ 10:58 by IMMANUEL Carl) History of arthroplasty of left ankle H/O hernia repair History of appendectomy Family History (Updated 07/16/24 @ 10:57 by Orlando Colon MD) Father Thoracic aortic aneurysm Social History (Updated 07/03/24 @ 10:58 by IMMANUEL Carl) Patient Tobacco Use Status: Current everyday Tobacco user Cigarettes Per Day: 10 Review of Systems Const Denies weakness ENT Denies dizziness Card Denies chest pain, Denies chest pain with activity, Denies syncope, Denies rapid heart rate, Denies pedal edema, Denies edema, Denies leg edema, Denies lightheadedness, Denies palpitations, Denies dyspnea, Denies dyspnea on exertion and Denies orthopnea Resp Denies cough, Denies dyspnea and Denies dyspnea on exertion GI Denies hematochezia and Denies change in stool character Musc Denies abnormal gait, Denies muscle cramps, Denies muscle weakness, Denies numbness, Denies radiating pain into limb and Denies tingling Neuro Denies abnormal gait, Denies dizziness, Denies syncope, Denies numbness, Denies tingling and Denies weakness Endo Denies palpitations Physical Exam Vital Signs: Last Vital Signs Pulse 76 07/16/24 10:36 BP 128/62 07/16/24 10:36 BMI result Body Mass Index 28.5 Const General: comfortable and no acute distress Orientation/consciousness: patient oriented x3 HEENT Other: Unremarkable Head: Yes normal to inspection Neck Neck: Yes normal visual inspection Chest Chest palpation & inspection: normal inspection of the chest Resp Auscultation: clear to auscultation bilaterally Cardio Palpation: normal PMI Heart sounds: S1 normal heart sound present, S2 normal heart sound present, no gallops, no murmurs and no rubs GI Palpation (GI): Soft to palpation Back/Spine/Pelvis Other: unremarkable Skin General skin exam: no rashes or lesions noted Neuro General: patient oriented x3 Extrem General: Yes normal to inspection Psych Mental Status: mental status grossly normal Office Procedures EKG Details: EKG with underlying sinus rhythm at 76/Min; no significant ST-T changes; [place]. [id number]-[id number], Complete Assessment & Plan Assessment & Plan (1) Preoperative cardiovascular examination: Code(s): Z01.810 - Encounter for preprocedural cardiovascular examination Category: Medical (2) AAA (abdominal aortic aneurysm) without rupture: Code(s): I71.40 - Abdominal aortic aneurysm, without rupture, unspecified Category: Medical Qualifiers: Abdominal aorta location: infrarenal aorta Qualified Code(s): I71.43 - Infrarenal abdominal aortic aneurysm, without rupture Plan History of aortic aneurysm in father; abdominal aortic aneurysm in patient; smoking history; hypertensive on medication; no overt cardiac symptoms. We will plan on comprehensive cardiac workup with an echocardiogram and stress test before proceeding with surgery. Discussed about this with the patient and he is agreeable. Blood pressure seems well regulated at this time. Patient was informed and verbally consented to the use of an ambient scribe for clinic note documentation during this visit. Orders: Orders CA echo transthoracic complete Today I71.43 - Infrarenal abdominal aortic aneurysm, without rupture, Z01.810 - Encounter for preprocedural cardiovascular examination CA stress test Today R07.2 - Precordial pain, Z01.810 - Encounter for preprocedural cardiovascular examination NM cardiolite stress test Today R07.2 - Precordial pain, Z01.810 - Encounter for preprocedural cardiovascular examination Patient Instructions: - Expect an echocardiogram and stress test to check heart function. - Contact the office if any new symptoms or questions arise. - Be available for follow-up instructions and coordination details. Coding Level of Care Code New Pt Level 4 (99172) Complex EM visit Add On G2211 Diagnoses Preoperative cardiovascular examination Z01.810 Infrarenal abdominal aortic aneurysm (AAA) without rupture I71.43 Abdominal aorta location: infrarenal aorta CPT Codes EKG - CPT: 53980-[id number], Complete ([id number])
--- OUTSIDE RECORDS SUMMARY | 2024-07-16 12:24 | XMS_ITS | Clinical Summary ---
Author Organization [employer] Address [address] [facility] [address] 7t [place] [address] Care Team Providers Care Display Coordinator Name Role Phone Kathy Hernandez PA-C Primary [...] Team Description 06/01/2024 Population Health Risk Score [facility] (C3) Department [address] [place] [address] Provider, Population Health Generic 04/23/2024 Telephone Meng [facility] [address] [place] [address] Kathy Hernandez PA-C Referral from Last 3 Months Immunizations Name Administration [...] t he electric, gas, oil or water [employer] threatened to shut off services in your [...] Alcohol/Substance Use Screening 01/08/2025 01/09/2024 COVID-19 Vaccine (2023-25 season) 2025 Postponed from 11/20/2023 (Patient Refused) [...] aortic aneurysm (AAA) without rupture, unspecified part ([facility]) HEMOGLOBIN A1C Routine 12/28/2023 8:51 AM EDT [...] Referral to Vascular Surgery (06/12/2024) Ashley Sanchez DIESEL SERVICE JOURNEYMAN OUTPATIENT REFERRAL ORDER EMIL Final Result * [...] AM EDT Performed at: ??01 - [facility] [address] ??[id number] Pin Sorter And Bagger: Kandi Posey MD, Phone: ??[phone] Kathy Hernandez PA-C LAB BLOOD ORDERABLES Final [...] AM EDT Performed at: ??01 - [facility] [place] [address] [place] ??[id number] Pin Sorter And Bagger: Kandi Posey MD, Phone: ??[phone] Kathy Hernandez PA-C LAB BLOOD ORDERABLES Final [...] Recently Relevant to Health Maintenance Insurance [place] [address] [place] [phone] COUNTS INCLUDE 234 BEDS AT [facility] MEDICARE ADVANTAGE HMO [facility] STAND ADULT D[facility]AL-[facility] MEDICAID STAND ADULT Care Teams Display Coordinator Relationship Specialty Start Date End Date Kathy Hernandez PA-C PCP - General Family Medicine 05/06/22
--- OUTSIDE RECORDS SUMMARY | 2024-07-16 12:24 | XMS_ITS | Encounter Summary ---
Author Organization [employer] Address [address] [facility] 7t [place] [address] Care Team Providers Care Fine Dining Server Name Role Phone Kathy Hernandez PA-C Primary [...] on filedocumented in this encounter Care Teams Fine Dining Server Relationship Specialty Start Date End Date Kathy Hernandez PA-C PCP - General Family Medicine 05/06/22 documented as of this encounter
--- OUTSIDE RECORDS SUMMARY | 2024-07-16 12:24 | XMS_ITS | Encounter Summary ---
Author Organization [employer] Address [address] [facility] 7t [place] [address] Care Team Providers Care Human Resources Operations Manager Name Role Phone Kathy Hernandez PA-C [...] on filedocumented in this encounter Care Teams Human Resources Operations Manager Relationship Specialty Start Date End Date Kathy Hernandez PA-C PCP - General Family Medicine 05/06/22 documented as of this encounter
--- OUTSIDE RECORDS SUMMARY | 2024-07-16 12:24 | XMS_ITS | Encounter Summary ---
Author Organization [employer] Address [address] [place] [address] 7t [place] [address] Care Team Providers Care Intake Clerk Name Role Phone Kathy Hernandez PA-C Primary Care Provider Unav ailable Encounter Details Date Type Department Care Team (Late st Contact Info) Description 04/14/2023 Orders Only [place] [facility] [address] [place] [address] Kathy Hernandez PA-C Social History Tobacco Use [...] on filedocumented in this encounter Care Teams Intake Clerk Relationship Specialty Start Date End Date Kathy Hernandez PA-C PCP - General Family Medicine 05/06/22 documented as of this encounter
--- OUTSIDE RECORDS SUMMARY | 2024-07-16 12:24 | XMS_ITS | Encounter Summary ---
Author Organization [employer] Address [address] [facility] 7t [place] [address] Care Team Providers Care Cable Operator Name Role Phone Kathy Hernandez PA-C Primary Care Provider Unav ailable Encounter Details Date Type Department Care Team (Late st Contact Info) Description 08/02/2023 Orders Only [facility] MEDICAL [address] [place] [address] Kathy Hernandez PA-C Arthralgia of multiple joints [...] sites documented in this encounter Care Teams Cable Operator Relationship Specialty Start Date End Date Kathy Hernandez PA-C PCP - General Family Medicine 05/06/22 documented as of this encounter
--- OUTSIDE RECORDS SUMMARY | 2024-07-16 12:24 | XMS_ITS | Encounter Summary ---
Author Organization [employer] Address [address] [facility] 7t [place] [address] Care Team Providers Care Warehouse Receiving Supervisor Name Role Phone Kathy Hernandez PA-C Primary Care Provider Unav ailable Encounter Details Date Type Department Care Team (Late st Contact Info) Description 05/06/2022 Orders Only [facility] MEDICAL [address] [place], [place] [id number] Kathy Hernandez PA-C Social History Tobacco Use [...] 8:33 AM EDT) Glucose 127(H) (70-99) MG/DL [facility] BUN 13 (8-23) MG/DL [facility] Creatinine, Serum 1.2 (0.7-1.2) MG/DL [facility] Sodium 139 (133-145) MMOL/L [facility] Potassium 5.2 (3.6-5.2) MMOL/L [facility] Chloride 102 (98-107) MMOL/L [facility] Bicarbonate 23 (22-29) MMOL/L [facility] Anion Gap 14 (4-17) [facility] Albumin 4.6 (3.4-4.8) GM/DL [facility] Calcium 10.0 (8.6-10.5) MG/DL [facility] Bilirubin, Total 0.6 (0-1.2) MG/DL [facility] Total Protein 6.9 (6.2-8.2) GM/DL [facility] Albumin/Globulin Ratio 2.0 [facility] AST 29 (0-40) U/L [facility] Alkaline Phosphatase 72 (40-129) U/L [facility] ALT (SGPT) 53(H) (0-41) U/L [facility] eGFR Creatinine 67 ML/MIN/1.7 3 M2 [facility] Comment: Creatinine based estimated glomerular filtration (eGFR) in adults is calculated using the National Kidney Foundation recommended 2020 CKD-EPI equation. Estimates GFR from serum creatinine, age and sex. Testing performed or reported by [facility], a Service of [facility], [address] [place] [address] Ann-Marie Cervantes MD, Bander And Cellophaner Machine [facility]# [id number] 07/20/2022 8:33 AM EDT 07/20/2022 8:34 AM EDT Kathy Hernandez PA-C LAB BLOOD [place] [address] * (ABNORMAL) Hemoglobin A1c (07/20/2022 8:33 AM EDT) Hemoglobin A1C 6.2(H) (4.0-5.6) % [facility] Comment: MONITORING: In known diabetic patients, hemoglobin A1c targets should be discussed with health care provider. DIAGNOSTIC USE: ??The [place] Diabetes Association (ADA) and the World Health [...] Supplement 1 Testing performed or reported by [facility], a Service of [facility], [address] [place] [id number] Ann-Marie Cervantes MD, Bander And Cellophaner Machine [facility]# [id number] 07/20/2022 8:33 AM EDT 07/20/2022 8:34 AM EDT Kathy Hernandez PA-C LAB BLOOD ORDERABLES Final Result [facility] [address] [place] [address] documented in this encounter Visit Diagnoses Not on filedocumented in this encounter Care Teams Warehouse Receiving Supervisor Relationship Specialty Start Date End Date Kathy Hernandez PA-C PCP - General Family Medicine 05/06/22 documented as of this encounter
== END 2024-07-16 11:09 | disposition home or self-care (01) ==
LOC: HO.HCS 10:32
PROVIDERS: Visit Provider Internal Medicine
DX: Z01.818 Encounter for other preprocedural examination (principal); I71.43 Infrarenal abdominal aortic aneurysm, without rupture
CPT/HCPCS: 93010; 99204; G2211

== ENCOUNTER → 2024-07-16 10:32 | Outpatient (BNVA) | payer MEDICARE, SELFPAY | PROVIDERS: Visit Provider Internal Medicine | DX: Z01.810 Encounter for preprocedural cardiovascular examination (principal); I71.43 Infrarenal abdominal aortic aneurysm, without rupture; R07.2 Precordial pain | CPT/HCPCS: 93005; 99202 ==

== ENCOUNTER → 2024-07-18 08:52 | Outpatient (REF) | payer MEDICARE, SELFPAY ==
--- NOTE | 2024-07-18 09:07 | CA_ITS ---
Transthoracic Echocardiogram Patient (Last, First, Middle): Sergio Pineda, Gender: Male Date of : 1955 Age: 69 Procedure Date: 07/18/2024 Procedure Type: Transthoracic Echocardiogram Location: OP Height: 177.8 cm Weight: 89.81 kg BSA: 2.08 m2 Heart Rate: 66 bpm BP: 128 / 62 mmHg Engraver Steel Plate: KARIE Symptoms: z01.810/ I71.43 Study Quality: Adequate ECG Rhythm: Sinus Conclusions: - Normal left ventricular size, thickness, systolic function, and wall motion. The visually estimated ejection fraction is between 50-55%. Diastolic function is normal for age. - Normal right ventricular cavity size and systolic function. - The left atrium is normal in size. - Mild calcification of the non coronary cusp of aortic valve. - There is mild dilatation of the ascending aorta measuring 3.90 cm. Findings Left Ventricle Normal left ventricular size, thickness, systolic function, and wall motion. The visually estimated ejection fraction is between 50-55%. Diastolic function is normal for age. Right Ventricle Normal right ventricular cavity size and systolic function. Atria The left atrium is normal in size. The right atrium is normal in size. Aortic Valve There is a normal trileaflet aortic valve. There is no aortic valve stenosis. There is no aortic valve regurgitation. Mild calcification of the non coronary cusp of aortic valve. Mitral Valve The mitral valve appears normal. There is mild mitral annular calcification. There is no mitral valve regurgitation. There is no mitral valve stenosis. Pulmonic Valve The pulmonic valve is likely normal. Tricuspid Valve Normal tricuspid valve structure. There is no tricuspid valve regurgitation. Tricuspid regurgitation envelope is inadequate for calculation of right ventricular systolic pressure. Normal right atrial pressure. Great Vessels There is mild dilatation of the ascending aorta measuring 3.90 cm. Venous The inferior vena cava is normal in size and collapses greater than 50% with inspiration. Pericardium/Pleural There is no evidence of pericardial effusion. Prior Study Comparison No prior study available for comparison. Measurements 2D Linear Measurements IVSd: 0.93 0.6-0.9/0.6-1.0 cm LVIDd: 5.20 3.9-5.3/4.2-5.9 cm LVIDd Index: 2.50 2.4-3.2/2.2-3.1 cm/m2 LVIDs: 3.41 2.0-3.6 cm LVPWd: 0.86 0.7-1.1 cm LA Diam: 3.40 2.7-3.8/3.0-4.0 cm LAIDs Index: 1.63 1.5-2.3 cm/m2 LV Mass: 208.50 67-162/88-224 g LV Mass Index: 100.24 43-95/49-115 g/m2 LVOT Diam: 2.30 3.0+(-)1.3 cm 2D Systolic Function EF 4C: 65.40 >55% EF 2C: 61.90 >55% EF BiP: 62.50 >55% Mitral Valve MV Pk E: 0.93 MV PK A: 1.06 MV Decel Time: 258.00 E/A: 0.90 E'Lateral: 9.36 E'Medial: 8.16 E/E' Med: 11.40 E/E' Lat: 10.00 PHT: 76.00 MVA PHT: 2.89 Decel [place]: 3.62 Aortic Valve AoV Pk Hugo: 1.17 AoV Mn Hugo: 0.89 AoV VTI: 0.28 AoV Pk Grad: 5.00 Aov Mn Grad: 3.00 MARIANA Cont.VTI: 3.70 LVOT LVOT Pk Hugo: 1.08 LVOT Mn Hugo: 0.66 LVOT VTI: 0.25 LVOT Pk Grad: 5.00 LVOT Mn Grad: 2.00 LVOT Diam: 2.30 LVOT Area: 4.15 Diastolic Function MV Pk E: 0.93 MV Pk A: 1.06 E/A: 0.90 E'Medial: 8.16 E/E' Med: 11.40 E' Laterial: 9.36 E/E' Lat: 10.00 Right Ventricle TAPSE (mm): 23.80 TVS' Hugo: 14.70 Tricuspid Valve RA Press: 3.00 Great Vessels Aorta Sinus of Valsalva: 3.51 2.0-3.5 cm Ao Asc: 3.90 2.1-3.4 cm Updated in Other Vendor System with Status of Final Guanaco Jo MD electronically signed on 07/20/2024 2:49:52 PM with status of Final
--- OUTSIDE RECORDS SUMMARY | 2024-07-18 09:15 | XMS_ITS | Encounter Summary ---
Author Organization [employer] Address 75 [facility] 7t [place] [address] Care Team Providers Care Ec Teacher Name Role Phone Kathy Hernandez PA-C Primary [...] on filedocumented in this encounter Care Teams Ec Teacher Relationship Specialty Start Date End Date Kathy Hernandez PA-C PCP - General Family Medicine 05/06/22 documented as of this encounter
--- OUTSIDE RECORDS SUMMARY | 2024-07-18 09:15 | XMS_ITS | Clinical Summary ---
Author Organization [employer] Address [address] [facility] [address] 7t [place] [address] Care Team Providers Care Assistant Tennis Professional Name Role Phone Kathy Hernandez PA-C Primary [...] Team Description 06/01/2024 Population Health Risk Score [facility] (C3) Department [address] [place] [address] Provider, Population Health Generic 04/23/2024 Telephone Meng [facility] MEDICAL [address] [place] [address] Kathy Hernandez PA-C Referral from Last 3 [...] t he electric, gas, oil or water [employer] threatened to shut off services in your [...] aortic aneurysm (AAA) without rupture, unspecified part ([facility]) HEMOGLOBIN A1C Routine 12/28/2023 8:51 [...] Referral to Vascular Surgery (06/12/2024) Ashley Sanchez CODE ENFORCEMENT INSPECTOR OUTPATIENT REFERRAL ORDER EMIL Final Result * [...] AM EDT Performed at: ??01 - [facility] [address] ??[id number] Meter Reader Inspector: Kandi Posey MD, Phone: ??[phone] Kathy Hernandez PA-C LAB BLOOD ORDERABLES Final [...] AM EDT Performed at: ??01 - [facility] [place] [address] [facility] [place] ??[id number] Meter Reader Inspector: Kandi Posey MD, Phone: ??[phone] Kathy Hernandez PA-C LAB BLOOD ORDERABLES Final [...] Recently Relevant to Health Maintenance Insurance [place] [address] [place] [id number] [facility] MEDIC[facility]ANT[facility] STAND ADULT DENTAL-[facility] MEDICAID STAND ADULT Care Teams Assistant Tennis Professional Relationship Specialty Start Date End Date Kathy Hernandez PA-C PCP - General Family Medicine 05/06/22
--- OUTSIDE RECORDS SUMMARY | 2024-07-18 09:15 | XMS_ITS | Encounter Summary ---
Author Organization [employer] Address [address] [place] [address] 7t [place] [address] Care Team Providers Care Stencil Inspector Name Role Phone Kathy Hernandez PA-C Primary Care Provider Unav ailable Encounter Details Date Type Department Care Team (Late st Contact Info) Description 04/14/2023 Orders Only [facility] Information Management [address] [place] [address] Kathy Hernandez PA-C Social History Tobacco Use [...] on filedocumented in this encounter Care Teams Stencil Inspector Relationship Specialty Start Date End Date Kathy Hernandez PA-C PCP - General Family Medicine 05/06/22 documented as of this encounter
--- OUTSIDE RECORDS SUMMARY | 2024-07-18 09:15 | XMS_ITS | Encounter Summary ---
Author Organization [employer] Address 75 [facility] 7t [place] [address] Care Team Providers Care Director Of Institutional Giving Name Role Phone Kathy Hernandez PA-C Primary Care Provider Unav ailable Encounter Details Date Type Department Care Team (Late st Contact Info) Description 08/02/2023 Orders Only [facility] MEDICAL [address] [place] [address] Kathy Hernandez PA-C Arthralgia of multiple joints [...] sites documented in this encounter Care Teams Director Of Institutional Giving Relationship Specialty Start Date End Date Kathy Hernandez PA-C PCP - General Family Medicine 05/06/22 documented as of this encounter
--- OUTSIDE RECORDS SUMMARY | 2024-07-18 09:15 | XMS_ITS | Encounter Summary ---
Author Organization [employer] Address 75 [facility] 7t [place] [address] Care Team Providers Care Assembler Clip On Sunglasses Name Role Phone Kathy Hernandez PA-C Primary Care Provider Unav ailable Encounter Details Date Type Department Care Team (Late st Contact Info) Description 05/06/2022 Orders Only [facility][1] MEDICAL [address] [place], [place] [id number] Kathy Hernandez PA-C Social History Tobacco Use [...] 8:33 AM EDT) Glucose 127(H) (70-99) MG/DL [facility] BUN 13 (8-23) MG/DL [facility] Creatinine, Serum 1.2 (0.7-1.2) MG/DL [facility] Sodium 139 (133-145) MMOL/L [facility] Potassium 5.2 (3.6-5.2) MMOL/L [facility] Chloride 102 (98-107) MMOL/L [facility] Bicarbonate 23 (22-29) MMOL/L [facility] Anion Gap 14 (4-17) [facility] Albumin 4.6 (3.4-4.8) GM/DL [facility] Calcium 10.0 (8.6-10.5) MG/DL [facility] Bilirubin, Total 0.6 (0-1.2) MG/DL [facility] Total Protein 6.9 (6.2-8.2) GM/DL [facility] Albumin/Globulin Ratio 2.0 [facility] AST 29 (0-40) U/L [facility] Alkaline Phosphatase 72 (40-129) U/L [facility] ALT (SGPT) 53(H) (0-41) U/L [facility] eGFR Creatinine 67 ML/MIN/1.7 3 M2 [facility] Comment: Creatinine based estimated glomerular filtration (eGFR) in adults is calculated using the National Kidney Foundation recommended 2020 CKD-EPI equation. Estimates GFR from serum creatinine, age and sex. Testing performed or reported by [facility], a Service of [facility], [address] [place] [id number] Ann-Marie Cervantes MD, Rn Post Partum [facility]# [id number] 07/20/2022 8:33 AM EDT 07/20/2022 8:34 AM EDT Kathy Hernandez PA-C LAB BLOOD ORDERAB[place] [address] * (ABNORMAL) Hemoglobin A1c (07/20/2022 8:33 AM EDT) Hemoglobin A1C 6.2(H) (4.0-5.6) % [facility] Comment: MONITORING: In known diabetic patients, hemoglobin A1c targets should be discussed with health care provider. DIAGNOSTIC USE: ??The [place] Diabetes Association (ADA) and the World Health [...] 1 Testing performed or reported by [facility], a Service of [facility], [address] [place] [address] Ann-Marie Cervantes MD, Rn Post Partum [facility]# [id number] 07/20/2022 8:33 AM EDT 07/20/2022 8:34 AM EDT Kathy Hernandez PA-C LAB BLOOD ORDERABLES Final Result [facility] [address] [place] [phone] documented in this encounter Visit Diagnoses Not on filedocumented in this encounter Care Teams Assembler Clip On Sunglasses Relationship Specialty Start Date End Date Kathy Hernandez PA-C PCP - General Family Medicine 05/06/22 documented as of this encounter
--- OUTSIDE RECORDS SUMMARY | 2024-07-18 09:15 | XMS_ITS | Encounter Summary ---
Author Organization [employer] Address 75 [facility] 7t [place] [address] Care Team Providers Care Contract Consultant Name Role Phone Kathy Hernandez PA-C Primary [...] on filedocumented in this encounter Care Teams Contract Consultant Relationship Specialty Start Date End Date Kathy Hernandez PA-C PCP - General Family Medicine 05/06/22 documented as of this encounter
== END ==
LOC: HO.CARD 08:52
PROVIDERS: PCP Nurse Practitioner Family; Visit Provider Internal Medicine
DX: Z01.810 Encounter for preprocedural cardiovascular examination (principal); I71.43 Infrarenal abdominal aortic aneurysm, without rupture
CPT/HCPCS: 93306

== ENCOUNTER → 2024-07-18 09:07 | Outpatient (BNV) | payer MEDICARE, SELFPAY | PROVIDERS: PCP Nurse Practitioner Family; Visit Provider Internal Medicine Cardiovascular Disease | DX: I35.0 Nonrheumatic aortic (valve) stenosis (principal); I34.81 Nonrheumatic mitral (valve) annulus calcification | CPT/HCPCS: 93306 ==

== ENCOUNTER → 2024-07-25 09:33 | Outpatient (REF) | payer MEDICARE, SELFPAY ==
--- NOTE | 2024-07-25 09:37 | CA_ITS ---
Acquisition Time: 2024-07-25 09:55:30 Total Exercise Time: 00:07:00 Test Indications: HTN,Pre-Op Evaluation Medications: AMLODIPINE Protocol: HOLLY Max HR: 141 BPM 92% of Pred: 153 BPM Max BP: 148/68 mmHG Max Work Load: 8.2 METS Exercise stress test with exercise 7 mins of Holly Protocol, reduced speed at 3.2mph due to ankle discomfort, achieving 92% MPHR, with SOB, no chest pain, without any arrythmias, with normotensive reponse to exercise. With sagging ST not meeting criteria for ischemia, nonspecific ST-T waves at baseline. In recovery, breathing returned to baseline. Nuclear images pending. Test reviewed with Dr. Colon. Referred By: Orlando Colon Electronically Signed By: Nas Joyner
--- OUTSIDE RECORDS SUMMARY | 2024-07-25 10:25 | XMS_ITS | Encounter Summary ---
Author Organization [facility] [employer] Address [address] [facility] [address] 7t [place] [address] Care Team Providers Care Wildlife Refuge Specialist Name Role Phone Kathy Hernandez PA-C [...] on filedocumented in this encounter Care Teams Wildlife Refuge Specialist Relationship Specialty Start Date End Date Kathy Hernandez PA-C PCP - General Family Medicine 05/06/22 documented as of this encounter
--- OUTSIDE RECORDS SUMMARY | 2024-07-25 10:25 | XMS_ITS | Encounter Summary ---
Author Organization [employer] Address [address] 7t [place] [address] Care Team Providers Care Video Editing Internship Name Role Phone Kathy Hernandez PA-C Primary Care Provider Unav ailable Encounter Details Date Type Department Care Team (Late st Contact Info) Description 05/06/2022 Orders Only [facility] MEDICAL [address] [place] [address] Kathy Hernandez PA-C Social History Tobacco Use [...] 8:33 AM EDT) Glucose 127(H) (70-99) MG/DL [facility] BUN 13 (8-23) MG/DL [facility] Creatinine, Serum 1.2 (0.7-1.2) MG/DL [facility] Sodium 139 (133-145) MMOL/L [facility] Potassium 5.2 (3.6-5.2) MMOL/L [facility] Chloride 102 (98-107) MMOL/L [facility] Bicarbonate 23 (22-29) MMOL/L [facility] Anion Gap 14 (4-17) [facility] Albumin 4.6 (3.4-4.8) GM/DL [facility] Calcium 10.0 (8.6-10.5) MG/DL [facility] Bilirubin, Total 0.6 (0-1.2) MG/DL [facility] Total Protein 6.9 (6.2-8.2) GM/DL [facility] Albumin/Globulin Ratio 2.0 [facility] AST 29 (0-40) U/L [facility] Alkaline Phosphatase 72 (40-129) U/L [facility] ALT (SGPT) 53(H) (0-41) U/L [facility] eGFR Creatinine 67 ML/MIN/1.7 3 M2 [facility] Comment: Creatinine based estimated glomerular filtration (eGFR) in adults is calculated using the National Kidney Foundation recommended 2020 CKD-EPI equation. Estimates GFR from serum creatinine, age and sex. Testing performed or reported by [facility], a Service of [facility], [address] [place] [id number] Ann-Marie Cervantes MD, Fur Tinter [facility]# [id number] 07/20/2022 8:33 AM EDT 07/20/2022 8:34 AM EDT Kathy Hernandez PA-C LAB [place] [address] * (ABNORMAL) Hemoglobin A1c (07/20/2022 8:33 AM EDT) Hemoglobin A1C 6.2(H) (4.0-5.6) % [facility] Comment: MONITORING: In known diabetic patients, hemoglobin A1c targets should be discussed with health care provider. DIAGNOSTIC USE: ??The [place] Diabetes Association (ADA) and the World Health [...] Supplement 1 Testing performed or reported by [facility], a Service of [facility], [address] [place] [id number] Ann-Marie Cervantes MD, Fur Tinter [facility]# [id number] 07/20/2022 8:33 AM EDT 07/20/2022 8:34 AM EDT Kathy Hernandez PA-C LAB BLOOD ORDERABLES Final Result [facility] [address] [place] [phone] documented in this encounter Visit Diagnoses Not on filedocumented in this encounter Care Teams Video Editing Internship Relationship Specialty Start Date End Date Kathy Hernandez PA-C PCP - General Family Medicine 05/06/22 documented as of this encounter
--- OUTSIDE RECORDS SUMMARY | 2024-07-25 10:25 | XMS_ITS | Clinical Summary ---
Author Organization [employer] Address [address] [facility] [address] 7t [place] [address] Care Team Providers Care Atm Servicer Name Role Phone Kathy Hernandez PA-C Primary [...] Team Description 06/01/2024 Population Health Risk Score [facility] (C3) Department [address] [address] Provider, Population Health Generic from Last 3 Months Immunizations Name Administration [...] aortic aneurysm (AAA) without rupture, unspecified part ([facility]) HEMOGLOBIN A1C Routine 12/28/2023 8:51 AM EDT [...] Results * Referral to Vascular Surgery (06/12/2024) us Ashley Sanchez AGRONOMY SUPERVISOR OUTPATIENT REFERRAL ORDER EMIL Final Result * (ABNORMAL) Hemoglobin A1c (12/28/2023 8:51 AM EDT) [facility] Hemoglobin A1c 6.6(H) 4.8 - 5.6 % [facility] Comment: ? Prediabetes: 5.7 - 6.4 ? Diabetes: >6.4 ? Glycemic control for adults with diabetes: <7.0 Blood Venous blood specimen / Unknown 12/28/2023 8:51 AM EDT 12/28/2023 Narrative [facility] 1 - 12/29/2023 12:05 AM EDT Performed at: ??01 - [facility] [address] ??[id number] Statistical Assistant: Kandi Posey MD, Phone: ??[phone] Result [facility] Kathy Hernandez PA-C LAB BLOOD ORDERABLES Final Result [facility] * (ABNORMAL) Lipid Panel, Standard (12/28/2023 8:51 AM EDT) [facility] Cholesterol, Total 183 100 - 199 mg/dL [...] AM EDT Performed at: ??01 - [facility] [address] ??[id number] Statistical Assistant: Kandi Posey MD, Phone: ??[phone] Kathy Hernandez PA-C LAB BLOOD ORDERABLES Final Result [facility] 1 * COLONOSCOPY (12/16/2020 12:00 AM EDT) Anatomical Region Laterality Modality Endoscopy 12/16/2020 Narrative 12/16/2020 12:00 AM EDT Refer to [facility] for result details [facility] Procedure: COLONOSCOPY Procedure Note Provider, Elizabet, - 07/15/2022 Refer to [facility] for result details [facility] Procedure: COLONOSCOPY us Historical Provider ENDOSCOPY PROCEDURE ORDER EMIL Final Result from Last 3 Months or Most Recently Relevant to Health Maintenance Insurance MEDICARE [facility] MEDICARE [facility]ANT[facility] Care Teams Atm Servicer Relationship Specialty Start Date End Date Kathy Hernandez PA-C PCP - General Family Medicine 05/06/22
--- OUTSIDE RECORDS SUMMARY | 2024-07-25 10:25 | XMS_ITS | Encounter Summary ---
Author Organization [employer] Address [address] [facility] 7t [place] [address] Care Team Providers Care Director Of Trauma Name Role Phone Kathy Hernandez PA-C Primary Care Provider Unav ailable Encounter Details Date Type Department Care Team (Late st Contact Info) Description 04/14/2023 Orders Only [facility] Information Management [address] [place] [address] Kathy Hernandez PA-C Social History Tobacco Use [...] on filedocumented in this encounter Care Teams Director Of Trauma Relationship Specialty Start Date End Date Kathy Hernandez PA-C PCP - General Family Medicine 05/06/22 documented as of this encounter
--- OUTSIDE RECORDS SUMMARY | 2024-07-25 10:25 | XMS_ITS | Encounter Summary ---
Author Organization [employer] [facility] [employer] Address [address] [facility] [address] 7t [place] [address] Care Team Providers Care Needleworker Name Role Phone Kathy Hernandez PA-C Primary [...] on filedocumented in this encounter Care Teams Needleworker Relationship Specialty Start Date End Date Kathy Hernandez PA-C PCP - General Family Medicine 05/06/22 documented as of this encounter
--- OUTSIDE RECORDS SUMMARY | 2024-07-25 10:25 | XMS_ITS | Encounter Summary ---
Author Organization [employer] Address [address] [facility] [address] 7[address] [place] [address] Care Team Providers Care Eeg Tech Name Role Phone Kathy Hernandez PA-C Primary Care Provider Unav ailable Encounter Details Date Type Department Care Team (Late st Contact Info) Description 08/02/2023 Orders Only [facility] MEDICAL [address] [place] [address] Kathy Hernandez PA-C Arthralgia of multiple joints [...] sites documented in this encounter Care Teams Eeg Tech Relationship Specialty Start Date End Date Kathy Hernandez PA-C PCP - General Family Medicine 05/06/22 documented as of this encounter
== END ==
LOC: HO.CARD 09:33
PROVIDERS: PCP Nurse Practitioner Family; Visit Provider Internal Medicine
DX: Z01.810 Encounter for preprocedural cardiovascular examination (principal); R07.2 Precordial pain
CPT/HCPCS: 78452; 93017; A9500; J0280; J2785

== ENCOUNTER → 2024-07-25 09:37 | Outpatient (BNV) | payer MEDICARE, SELFPAY | PROVIDERS: PCP Nurse Practitioner Family | DX: R06.02 Shortness of breath (principal) | CPT/HCPCS: 78452; 93016; 93018 ==

== ENCOUNTER 2024-08-06 10:39 | Inpatient (IN) | payer MEDICARE, SELFPAY ==
[2024-07-23 09:53] VITALS: BP 133/76; PULSE 75; RESP 16; O2SAT 97; BMI 28.7
[2024-07-23 11:08] LABS: Mean Corpuscular Hemoglobin 30.8 pg (27.0-33.0); Mean Corpuscular Volume 90.6 fL (80.0-98.0); Mean Platelet Volume 9.9 fL (9.4-12.4); Platelet Count 208 X10*3/uL (160-400); Red Blood Count 5.19 X10*6/uL (4.60-5.80); Red Cell Distribution Width 13.2 % (11.0-16.0); White Blood Count 8.5 X10*3/uL (4.8-10.8)
[2024-07-23 11:15] LABS: INTERNATIONAL NORM RATIO 0.9 (0.9-1.1); Prothrombin Time 10.7 SEC (10.9-12.4)
[2024-07-23 11:17] LABS: Partial Thromboplastin Time 31.2 SEC (26.0-36.8)
[2024-07-23 11:19] LABS: Anion Gap 12 (12-20); Blood Urea Nitrogen 14 mg/dL (9-16); Calcium 9.8 mg/dL (8.4-10.2); Carbon Dioxide 26 mmol/L (22-29); Chloride 108 mmol/L (96-108); Creatinine Clr Calc Pharmacy 88.2; Estimated Glomerular Filt Rate > 60; Glucose Random 70 mg/dL (60-115); Potassium 5.2 mmol/L (3.3-5.1); Sodium 141 mmol/L (135-145)
[2024-08-06] VITALS (20 sets, daily range): BP systolic 118–160; BP diastolic 61–84; PULSE 56–94; RESP 12–19; TEMP 36.2–37.3; O2SAT 93–98; BMI 28.4; BMI 28.0
[2024-08-06] MEDS: Lactated Ringers 1,000 ML 100 ML IVCONT ×2 (06:59→13:18)
--- NOTE | 2024-08-06 07:30 | HO.ANESPROP2 ---
Documented by User: Coleen Marie NP 08/02/24 15:27 HPI - Anesthesia Eval Consult details Narrative: 69yo M for Aortic Endovascular Repair, 08/06/24 Cardiology optimized. Eval'd by [facility] cardiology for preop risk stratify with echo, stress No recent illness No CP/SOB with working around the house, yardwork. Limiting straining d/t AAA Smoker ~ 1/2 ppd for 60 years ETOH: ~ 4 beers, encouraged slow reduction preop Long mustache and goatee - encourage trim, pt hesitant, but educated of risk PMFSH Active Problems Active Problems: All Active Problems Preoperative cardiovascular examination (Acute) AAA (abdominal aortic aneurysm) without rupture (Acute) Past Medical History Medical History AAA (abdominal aortic aneurysm) History of skin cancer Primary hypertension Family History Family History (Updated 07/16/24 @ 10:57 by Orlando Colon MD) Father Thoracic aortic aneurysm Family history of problems with anesthesia: No Surgical History Surgical History (Updated 08/06/24 @ 06:17 by Bernice Mills RN) Hx of removal of neck cyst (~2021) Hx of colonoscopy Hx of total knee replacement (2023) Hx of bilateral inguinal hernia repair (2023) History of arthroplasty of left ankle (~2009) H/O hernia repair History of appendectomy (2023) History of Problems with Anesthesia: No Social History Social History (Updated 07/27/24 @ 16:00 by Mabel Summers RN) Household Members: Significant Other Housing: House Are you a primary campground caretaker to a significant other at home: No Do you presently have visiting nurse or other home services: No Patient Tobacco Use Status: Current everyday Tobacco user Tobacco use type: Cigarette Cigarette Packs Per Day: 0.5 Cigarettes Per Day: 10.0 Meds Allergies Allergy/AdvReac Type Severity Reaction Status Date / Time No Known Allergies Allergy Verified 08/06/24 06:13 Home Medications ?Medication ?Instructions ?Recorded ?Confirmed ?Last Taken ?Type amlodipine 5 mg tablet 5 mg PO DAILY 06/12/24 07/23/24 08/05/24 History Exam Height,Weight and Vital Signs: Height 5 ft 10 in Weight 90.718 kg Last Vital Signs Pulse 75 07/23/24 09:53 Resp 16 07/23/24 09:53 BP 133/76 07/23/24 09:53 Pulse Ox 97 07/23/24 09:53 O2 Del Method Room Air 07/23/24 09:53 Pertinent Lab Results Pertinent Lab Results: Lab Results 07/23/24 07/23/24 Range/Units 10:56 11:01 WBC 8.5 (4.8-10.8) X10*3/uL RBC 5.19 (4.60-5.80) X10*6/uL Hgb 16.0 (14.0-18.0) g/dl Hct 47.0 (42.0-52.0) % MCV 90.6 (80.0-98.0) fL MCH 30.8 (27.0-33.0) pg MCHC 34.0 (31.0-36.0) g/dl RDW 13.2 (11.0-16.0) % Plt Count 208 (160-400) X10*3/uL MPV 9.9 (9.4-12.4) fL Absolute Nucleated RBC 0.000 (0.0-0.012) X10*3/uL Nucleated RBC % (auto) 0.0 (0.0-0.2) /100WBC PT 10.7 L (10.9-12.4) SEC INR 0.9 (0.9-1.1) APTT 31.2 (26.0-36.8) SEC Sodium 141 (135-145) mmol/L Potassium 5.2 H (3.3-5.1) mmol/L Chloride 108 (96-108) mmol/L Carbon Dioxide 26 (22-29) mmol/L Anion Gap 12 (12-20) BUN 14 (9-16) mg/dL Creatinine 0.92 (0.5-1.4) mg/dL Estim Creat Clear Calc 88.2 Estimated GFR > 60 Random Glucose 70 (60-115) mg/dL Calcium 9.8 (8.4-10.2) mg/dL Blood Type A Positive Antibody Screen NEGATIVE Narrative Narrative: EKG 06/2024 Details: EKG with underlying sinus rhythm at 76/Min; no significant ST-T changes; normal WV and corrected QT. ECHO 06/2024 - Normal left ventricular size, thickness, systolic function, and wall motion. The visually estimated ejection fraction is between 50-55%. Diastolic function is normal for age. - Normal right ventricular cavity size and systolic function. - The left atrium is normal in size. - Mild calcification of the non coronary cusp of aortic valve. - There is mild dilatation of the ascending aorta measuring 3.90 cm. NM cardiolite stress test 07/2024 IMPRESSION: 1. Myocardial perfusion imaging study shows probably normal myocardial perfusion. 2. Gated LVEF is 64% during stress and 58% during rest. 3. Transient ischemic dilatation not present. Airway Mallampati Class: I TM Dist: >3cm Neck ROM: Full Loose/Missing/Broken Teeth: No (crowned molars) Heart: RRR Lungs: CTAB Assessment and Plan Assessment Anesthesia Assessment: Anesthesia Plan Discussed, Smoking Cess. Discussed and PAT Visit Final Anesthetic Review Family History of Problems with Anesthesia: No History of Problems with Anesthesia: No Documented by User: Valerie Kaur DO 08/06/24 08:38 [facility] Past Medical History Medical History AAA (abdominal aortic aneurysm) History of skin cancer Primary hypertension Family History Family History (Updated 07/16/24 @ 10:57 by Orlando Colon MD) Father Thoracic aortic aneurysm Family history of problems with anesthesia: No Surgical History Surgical History (Updated 08/06/24 @ 06:17 by Bernice Mills RN) Hx of removal of neck cyst (~2021) Hx of colonoscopy Hx of total knee replacement (2023) Hx of bilateral inguinal hernia repair (2023) History of arthroplasty of left ankle (~2009) H/O hernia repair History of appendectomy (2023) History of Problems with Anesthesia: No Social History Social History (Updated 07/27/24 @ 16:00 by Mabel Summers RN) Household Members: Significant Other Housing: House Are you a primary campground caretaker to a significant other at home: No Do you presently have visiting nurse or other home services: No Patient Tobacco Use Status: Current everyday Tobacco user Tobacco use type: Cigarette Cigarette Packs Per Day: 0.5 Cigarettes Per Day: 10.0 Meds Allergies Allergy/AdvReac Type Severity Reaction Status Date / Time No Known Allergies Allergy Verified 08/06/24 06:13 Home Medications ?Medication ?Instructions ?Recorded ?Confirmed ?Last Taken ?Type amlodipine 5 mg tablet 5 mg PO DAILY 06/12/24 07/23/24 08/05/24 History Exam Exam Date and Time: 08/06/24 0730 Height,Weight and Vital Signs: Height 5 ft 10 in Weight 89.7 kg Vital Signs Pulse Rate 75 07/23/24 09:53 Respiratory Rate 16 07/23/24 09:53 Blood Pressure 133/76 07/23/24 09:53 Pulse Oximetry 97 07/23/24 09:53 Oxygen Delivery Method Room Air 07/23/24 09:53 Temperature 97.2 F 08/06/24 06:21 Pulse Rate 66 08/06/24 06:21 Respiratory Rate 17 08/06/24 06:21 Blood Pressure 134/71 08/06/24 06:21 Pulse Oximetry 98 08/06/24 06:21 Oxygen Delivery Method Room Air 08/06/24 06:21 Height 5 ft 10 in Weight 90.718 kg Last Vital Signs Pulse 75 07/23/24 09:53 Resp 16 07/23/24 09:53 BP 133/76 07/23/24 09:53 Pulse Ox 97 07/23/24 09:53 O2 Del Method Room Air 07/23/24 09:53 Airway Mallampati Class: I TM Dist: >3cm Neck ROM: Full Loose/Missing/Broken Teeth: No (patient denies any loose or broken teeth) Heart: S1S2 Assessment and Plan Assessment Anesthesia Assessment: Anesthesia Plan Discussed and Chart Reviewed Final Anesthetic Review Family History of Problems with Anesthesia: No History of Problems with Anesthesia: No NPO: Yes ASA Class: II Final Preanesthetic Review: No Changes in Pt Med Stat, Meds/Allgs Chart Reviewed, Consent Obtained/Reviewed and Anes Risks/Benef Reviewed Patient Risk: Low Procedure Risk: Intermediate Anesthetic Plan Anesthetic Plan: GA and Agree w/ Assess. and Plan Disposition: Standard PACU
--- NOTE | 2024-08-06 07:39 | MHC.SHP ---
Pre-Procedural Eval Section A - 24 Hr Update-Section A only Date of Service: 08/06/24 The patient is an INPATIENT: No Changes since office visit: Yes Patient answered all questions The patient has been examined within 24 hours of the surgical procedure. The History & Physical has been completed within 30 days and I have reviewed it.: Yes Section B - Complete if H&P > 30 days Chief Complaint: End stage renal disease Allergies: Allergies Allergy/AdvReac Type Severity Reaction Status Date / Time No Known Allergies Allergy Verified 08/06/24 06:13 Plan I have reviewed the history and physical and performed a pertinent physical examination on my patient. No changes have occurred unless specified. Time Spent With Patient Time: Total time managing care of this patient today ____ minutes.
--- NOTE | 2024-08-06 07:43 | MHC.SHP ---
Pre-Procedural Eval Section A - 24 Hr Update-Section A only Date of Service: 08/06/24 Section B - Complete if H&P > 30 days Chief Complaint: aaa Allergies: Allergies Allergy/AdvReac Type Severity Reaction Status Date / Time No Known Allergies Allergy Verified 08/06/24 06:13 Review of Systems Sugical H&P ROS: Negative: Constitution Exam Surgical H&P Exam: Normal: HEENT, Normal: Heart, Normal: Lungs and Normal: Extremities Plan Diagnosis/Plan: Unchanged I have reviewed the history and physical and performed a pertinent physical examination on my patient. No changes have occurred unless specified. Time Spent With Patient Time: Total time managing care of this patient today ____ minutes.
--- NOTE | 2024-08-06 11:18 | W.PM.OPN ---
Operative Note Operative Note Date of Service: 08/06/24 Narrative: Operative note by [facility] Preoperative diagnosis: Abdominal aortic aneurysm Postoperative diagnosis: Same Procedure: 1. Right femoral artery cutdown 2. Left common femoral cutdown 3. Endovascular aortic aneurysm repair (Dorchester device) 4. Radiologic supervision and interpretation Surgeon:Tho Storey M.D. Molecular Genetic Pathologist: Dr. Arenas Anesthesia: General endotracheal Specimens: None Drains: None Estimated blood loss: 100 mL Radiation dose 779.5 mGy Indications: The patient had he is aortic aneurysm confirmed on CT angiogram. Based on the anatomy and topography he is now for endovascular aneurysm repair possible open repair. The patient has signed the informed consent after reviewing risks, complications, benefits, and alternatives previously discussed with the patient. The patient was given the opportunity to ask any additional questions or voice any concerns. All questions were answered to the patient's satisfaction. Procedure in detail: Patient was brought to the operating room prior to which a time-out was called for patient identification and site verification abdomen and bilateral groins were prepped and draped in a standard surgical fashion. Cutdown was performed on the right common femoral artery using standard technique. This was a transverse incision. We then dissected down to the common femoral artery. This was encircled with silastic loops. Left common femoral was accessed in a similar fashion with cutdown.. The ipsilateral side which was the right side a 5 [place] sheath was then placed in addition to the contralateral side which was the left side an additional 5 [place] was placed.. Angiogram was performed to measure the vessel length and characterize the anatomy and its topography. We loaded the 26 mm [place]chester aortic body delivery system over the Lunderquist wire. Initial delivery system into the vasculature and advanced it until the implant radiopaque markers were about 1 cm proximal to the intended landing site. Orientation of the aortic body to the desired position for appropriate access to the contralateral aortic limb. We retracted the delivery system outer sheath until the sheath retraction knob handle met. We then deployed the 1st segment of the proximal stent by turning the 1st stent release knob a quarter turn counter-clockwise and then steadily pulled the knob from the wire handle. We removed the white count from the balloon and inflated with 7.5 mL of 4-1 saline to contrast to open the mid crown. We completely deflated the undergo balloon. We proceeded position the implant radiopaque markers at the final proximal landing site. We deployed the remainder of the proximal stent by turning 2nd stent release knob a quarter turn counter-clockwise and steadily pulled the knob and wire from the handle. We removed the green fill cap and polymer injection port on handle and fill syringe to it. We retracted the aortic body guidewire until the stiff 2 floppy transition was within the aortic body if see leg. We then obtain contralateral limb access with guidewire via contralateral cannulation. We inserted marker catheter into the contralateral side and performed angiogram to confirm contralateral limb length. We then loaded the 16 x 120 elevation iliac limb delivery system over the contralateral guidewire. We then confirmed proximal and distal iliac limb radiopaque markers were at the appropriate locations and that the iliac limb in the contralateral lumen of the aortic body stent graft leg. We retracted the sheath to deploy the iliac limb while maintaining catheter handle position. We maintained position of the sheath and retracted the catheter handle to reseat the nose cone in the end of the delivery system outer sheath. We readvanced the aortic body guidewire. We balloon the proximal seal ring with a Q 50 balloon. We released the catheter from the aortic body turning the 3rd release knob quarter turn counter-clockwise and then steadily pulled the knob and wire from the handle. While maintaining guidewire position stabilized the sheath and retracted catheter handle to receive the nose cone into the end of the delivery system outer sheath. We then sized and deployed the ipsilateral limb measuring 18 x 120 elevation limb in the same fashion as the contralateral limb. In a similar fashion we used a cue 50 angioplasty balloon to plasty this out. We then performed a completion angiogram to verify aneurysm exclusion. We also visualized the proximal and distal landing sites. We did not visualize any significant type 1 endoleak and there was a very delayed type 2 endoleak from a lumbar. We performed a final angiogram, removed catheters and sheaths. The right groin and left groin was closed with a 6 0 Prolene in a running fashion. We then reapproximated the deep layer with 2-0 Polysorb. The superficial layer was then reapproximated with a 3-0 Polysorb. Finally skin was closed with a running subcuticular 4 O Monocryl. EpiFix was used as a sterile dressing. At the end the case sponge needle instrument counts were correct. Patient tolerated the procedure well, and returned to recovery with stable vitals Interpretation of films: 1. Initial aortogram confirmed anatomy and topography the infrarenal aortic aneurysm. 2. Completion angiogram demonstrated appropriate deployment of graft with no evidence of type 1 endoleak, we did appreciate a very delayed type 2 endoleak from a lumbar.. Conclusion: Successful deployment Dorchester aortic graft. This note is constructed using voice recognition software. While every effort has been made to ensure accuracy, extrusion process operator errors may have been included. Thank you for allowing me to participate in the care of your patient. Yours sincerely, Tho Storey MD, FACS, R.P.V.I.
--- NOTE | 2024-08-06 11:35 | PHA.MEDREC ---
Pharmacy Consult ? Medication Reconciliation Pharmacy has completed the medication reconciliation. Followed up on med rec done by nursing. Patient was only getting Amlodipine per forestry aid visit from 07/16/24. Matches med rec done by RN in pre-op.
--- OUTSIDE RECORDS SUMMARY | 2024-08-06 12:22 | XMS_ITS | Clinical Summary ---
Author Organization [employer] Address [address] [place] [address] Care Team Providers Care Supervisor Mold Construction Name Role Phone Kathy Hernandez PA-C Primary [...] Encounters Date Type Department Care Team Description 07/30/2024 Orders Only [facility] [address] [place] [address] PcpMeng Unassigned 06/01/2024 Population Health Risk Score [facility] ([facility]) Department [address] [phone] Provider, Population Health Generic from Last 3 Months Immunizations Immunization Administration Dates Next Due Tdap 11/08/2022 Family [...] patient's age to complete this topic Meningococcal B Vaccine Aged Out No l onger eligible based on patient's age to complete [...] Procedure Name Priority Date/Time Associated Diagnosis Comments STRESS TEST WITH MYOCARDIAL PERFUSION Routine 07/25/2024 10:52 AM EDT AMB REFERRAL TO VASCULAR SURGERY Urgent 06/12/2024 [...] Recently Relevant to Health Maintenance Results * Stress test with myocardial perfusion (07/25/2024 10:52 AM EDT) [facility] Unassigned Pcp CV STRESS PROCEDURES Fin al Result * Referral to Vascular Surgery (06/12/2024) Ashley Sanchez UNDERWRITING ANALYST OUTPATIENT REFERRAL ORDER EMIL Final Result * [...] AM EDT Performed at: ??01 - [facility] [address] ??[id number] Gun Synchronizer: Kandi Posey MD, Phone: ??[phone] Kathy Hernandez PA-C LAB BLOOD ORDERABLES Final [...] AM EDT Performed at: ??01 - [facility] [address] ??[id number] Gun Synchronizer: Kandi Posey MD, Phone: ??[phone] us Kathy Hernandez PA-C LAB BLOOD ORDERABLES Final [...] Recently Relevant to Health [place] [id number] [facility] MEDICARE ADVANTAGE HMO [place]AND AD[place] ADULT Care Teams Supervisor Mold Construction Relationship Specialty Start Date End Date Kathy Hernandez PA-C PCP - General Family Medicine 05/06/22
--- OUTSIDE RECORDS SUMMARY | 2024-08-06 12:22 | XMS_ITS | Encounter Summary ---
Author Organization [employer] Address [address] [place] [address] Care Team Providers Care High Density Press Operator Name Role Phone Kathy Hernandez PA-C Primary Care Provider Unav ailable Encounter Details Date Type Department Care Team (Late st Contact Info) Description 07/30/2024 Orders Only [place] [facility] Information [facility] [address] [place] [address] PcpMeng Unassigned Social History Tobacco Use Types Packs/Day Years [...] MYOCARDIAL PERFUSION Routine 07/25/2024 10:52 AM EDT documented in this encounter Results * Stress test with myocardial perfusion (07/25/2024 10:52 AM EDT) [place] Unassigned Pcp CV STRESS PROCEDURES Fin al Result documented in this encounter Visit Diagnoses Not on filedocumented in this encounter Care Teams High Density Press Operator Relationship Specialty Start Date End Date Kathy Hernandez PA-C PCP - General Family Medicine 05/06/22 documented as of this encounter
--- OUTSIDE RECORDS SUMMARY | 2024-08-06 12:22 | XMS_ITS | Encounter Summary ---
Author Organization [employer] Address [address] [place] [address] Care Team Providers Care Flatwork Finisher Hand Name Role Phone Kathy Hernandez PA-C Primary Care Provider Unav ailable Encounter Details Date Type Department Care Team (Late st Contact Info) Description 04/14/2023 Orders Only [facility] Information Management [address] [place] [address] Kathy Hernandez PA-C Social History Tobacco Use [...] on filedocumented in this encounter Care Teams Flatwork Finisher Hand Relationship Specialty Start Date End Date Kathy Hernandez PA-C PCP - General Family Medicine 05/06/22 documented as of this encounter
--- OUTSIDE RECORDS SUMMARY | 2024-08-06 12:22 | XMS_ITS | Encounter Summary ---
Author Organization [employer] Address [address] [place] [address] Care Team Providers Care Station Tender Name Role Phone Kathy Hernandez PA-C Primary Care Provider Unav ailable Encounter Details Date Type Department Care Team (Late st Contact Info) Description 05/06/2022 Orders Only [facility] MEDICAL [address] [place] [address] Kathy Hernandez PA-C Social History Tobacco Use [...] [facility] Anion Gap 14 (4-17) [facility] Albumin 4.6 (3.4-4.8) GM/DL [facility] Calcium 10.0 (8.6-10.5) MG/DL [facility] Bilirubin, Total 0.6 (0-1.2) MG/DL [facility] Total Protein 6.9 (6.2-8.2) GM/DL [facility] Albumin/Globulin Ratio 2.0 [facility] AST 29 (0-40) U/L [facility] Alkaline Phosphatase 72 (40-129) U/L [facility] ALT (SGPT) 53(H) (0-41) U/L [facility] eGFR Creatinine 67 ML/MIN/1.7 3 M2 [facility] Comment: Creatinine based estimated glomerular filtration (eGFR) in adults is calculated using the National Kidney Foundation recommended 2020 CKD-EPI equation. Estimates GFR from serum creatinine, age and sex. Testing performed or reported by [facility], a Service of [facility], [address] [place] [id number] Ann-Marie Cervantes MD, Mail Processing Machine Operator [facility]# [id number] 07/20/2022 8:33 AM EDT 07/20/2022 8:34 AM EDT Kathy Hernandez PA-C LAB BLOOD ORDERABLES [place] [address] * (ABNORMAL) Hemoglobin A1c (07/20/2022 8:33 AM EDT) Hemoglobin A1C 6.2(H) (4.0-5.6) % [facility] Comment: MONITORING: In known diabetic patients, hemoglobin A1c targets should be discussed with health care provider. DIAGNOSTIC USE: ??The [place] Diabetes Association (ADA) and the World Health [...] Supplement 1 Testing performed or reported by [facility], a Service of [facility], [address] [place] [id number] Ann-Marie Cervantes MD, Mail Processing Machine Operator [facility]# [id number] 07/20/2022 8:3 3 AM EDT 07/20/2022 8:34 AM EDT Kathy Hernandez PA-C LAB BLOOD ORDERABLES Final Result [facility] [address] [place] [id number] documented in this encounter Visit Diagnoses Not on filedocumented in this encounter Care Teams Station Tender Relationship Specialty Start Date End Date Kathy Hernandez PA-C PCP - General Family Medicine 05/06/22 documented as of this encounter
--- OUTSIDE RECORDS SUMMARY | 2024-08-06 12:22 | XMS_ITS | Encounter Summary ---
Author Organization [facility] [employer] Address [address] [place] [address] Care Team Providers Care Shear Grinder Operator Name Role Phone Kathy Hernandez PA-C [...] on filedocumented in this encounter Care Teams Shear Grinder Operator Relationship Specialty Start Date End Date Kathy Hernandez PA-C PCP - General Family Medicine 05/06/22 documented as of this encounter
--- OUTSIDE RECORDS SUMMARY | 2024-08-06 12:22 | XMS_ITS | Encounter Summary ---
Author Organization [employer] Address [address] [place] [address] Care Team Providers Care Chief Nurse Anesthetist Name Role Phone Kathy Hernandez PA-C Primary Care Provider Unav ailable Encounter Details Date Type Department Care Team (Late st Contact Info) Description 08/02/2023 Orders Only [facility] MEDICAL [address] [place] [address] Kathy Hernandez PA-C Arthralgia of multiple joints [...] sites documented in this encounter Care Teams Chief Nurse Anesthetist Relationship Specialty Start Date End Date Kathy Hernandez PA-C PCP - General Family Medicine 05/06/22 documented as of this encounter
--- OUTSIDE RECORDS SUMMARY | 2024-08-06 12:22 | XMS_ITS | Encounter Summary ---
Author Organization [facility] [employer] Address [address] [place] [address] Care Team Providers Care Senior Accounts Payable Specialist Name Role Phone Kathy Hernandez PA-C [...] on filedocumented in this encounter Care Teams Senior Accounts Payable Specialist Relationship Specialty Start Date End Date Kathy Hernandez PA-C PCP - General Family Medicine 05/06/22 documented as of this encounter
--- NOTE | 2024-08-06 15:40 | PM.CCHP ---
History of Present Illness Date of Service: 08/06/24 Chief Complaint: Status post endovascular AAA repair 69-year-old gentleman with underlying history of hypertension and abdominal aortic aneurysm now postoperative day 0 after an elective AAA repair being monitored in the intensive care unit. Review of Systems Constitutional: Constitutional: Denies daytime sleepiness, Denies excessive sweating, Denies fatigue, Denies fever(s), Denies lethargy, Denies malaise, Denies night sweats, Denies snoring and Denies weight loss Eyes: Eyes: Denies blurry vision and Denies itchy eyes ENT: Denies nasal congestion, Denies post nasal drip, Denies sinus pain, Denies sinus pressure and Denies other ( Thrush) Cardiovascular: Cardiovascular: Denies chest pain, Denies pedal edema, Denies dyspnea, Denies orthopnea and Denies paroxysmal nocturnal dyspnea Respiratory: Respiratory: Denies cough, Denies hemoptysis, Denies excessive phlegm production, Denies dyspnea, Denies snoring and Denies wheezing Gastrointestinal: Gastrointestinal: Denies abdominal pain and Denies heartburn Musculoskeletal: Musculoskeletal: Denies myalgias, Denies arthralgias and Denies joint swelling Integumentary/Breasts: Skin/Breast: Denies rash Neurologic: Denies memory loss and Denies seizure-like activity Psychiatric: Psychiatric: Denies abnormal sleep pattern, Denies anxiety and Denies memory loss Endocrine: Endocrine: Denies excessive sweating, Denies fatigue and Denies heat intolerance Hematologic/Lymphatic: Hematologic/Lymphatic: Denies easy bruising Allergic/Immunologic: Allergic/Immunologic: Denies itchy eyes, Denies seasonal rhinorrhea and Denies wheezing PMFSH Past Medical History Medical History (Updated 08/06/24 @ 15:45 by Mat Jo MD) AAA (abdominal aortic aneurysm) History of skin cancer Primary hypertension Family History Family History (Updated 07/16/24 @ 10:57 by Orlando Colon MD) Father Thoracic aortic aneurysm Surgical History Surgical History (Updated 08/06/24 @ 15:45 by Mat Jo MD) Hx of removal of neck cyst (~2021) Hx of colonoscopy Hx of total knee replacement (2023) Hx of bilateral inguinal hernia repair (2023) History of arthroplasty of left ankle (~2009) H/O hernia repair History of appendectomy (2023) Social History Social History (Updated 07/27/24 @ 16:00 by Mabel Summers RN) Household Members: Significant Other Housing: House Are you a primary home visit field care manager to a significant other at home: No Do you presently have visiting nurse or other home services: No Patient Tobacco Use Status: Current everyday Tobacco user Tobacco use type: Cigarette Cigarette Packs Per Day: 0.5 Cigarettes Per Day: 10.0 Smoked in Last 30 Days: No e-Cigarette/Vaping Use: Currently Using Patient Interested in Nicotine Replacement: No Patient Given Instructions on How to Stop Smoking: No Use of substances other than those prescribed or required for medical reasons: No Have you been hit, kicked, punched, or otherwise hurt by someone within the past year? If so, by whom?: No Do you feel safe in your current relationship?: Yes Is there a partner from a previous relationship who is making you feel unsafe now?: No Are you made to feel afraid or neglected: No Are you DNR?: No Advance Directives: No Advance Directives Information Provided: Yes Advance Directives on File: No Do you have a plan to hurt others: No Plan Recently lost weight without trying: No Eating poorly because of decreased appetite: No Poor oral hygiene: No Meds Allergies Allergy/AdvReac Type Severity Reaction Status Date / Time No Known Allergies Allergy Verified 08/06/24 06:13 Active Medications: Current Medications Acetaminophen (Acetaminophen 325 Mg Tablet) 650 mg PO Q6H PRN PRN Reason: Pain, Mild 1-3,fever,headache Albuterol Sulfate (Albuterol Sulfate (0.083%) 2.5 Mg/3 Ml Vial.Neb) 2.5 mg INHALE ONCE PRN PRN Reason: Shortness of Breath/Wheezing Amlodipine Besylate (Amlodipine Besylate 5 Mg Tablet) 5 mg PO DAILY CAROLA; Protocol Calcium Carbonate (Calcium Carbonate 750 Mg Tab.Chew) 750 mg PO Q4H PRN PRN Reason: Heartburn Lactated Ringer's (Lr) 1,000 mls @ 100 mls/hr IVCONT .Q10H CAROLA Last Admin: 08/06/24 13:18 Dose: 100 mls/hr Magnesium Hydroxide (Milk Of Magnesia 30 Ml Oral.Susp) 30 ml PO DAILY PRN PRN Reason: Constipation Melatonin (Melatonin 3 Mg Tablet) 6 mg PO BEDTIME PRN PRN Reason: Insomnia Morphine Sulfate (Morphine Sulfate 2 Mg/Ml Cartridge) 2 mg IVPUSH Q4H PRN; Protocol PRN Reason: Pain, Severe (Pain Scale 7-10) Naloxone HCl (Naloxone Hcl 0.4 Mg/Ml Vial) 0.04 mg IVPUSH Q5M PRN PRN Reason: Excessive sedation or RR < 8 Oxycodone HCl (Oxycodone Hcl Immed Release 5 Mg Tablet) 5 mg PO Q4H PRN PRN Reason: Pain, Moderate(Pain Scale 4-6) Sodium Chloride (0.9 % Sodium Chloride Flush 3 Ml Syringe) 3 ml IVFLUSH QSHIFT [facility] Home Medications ?Medication ?Instructions ?Recorded ?Confirmed ?Last Taken ?Type amlodipine 5 mg tablet 5 mg PO DAILY 06/12/24 07/23/24 08/05/24 History Physical Exam Vital Signs: Vital Signs: Last Vital Signs Temp 98.5 F 08/06/24 12:10 Pulse 77 08/06/24 15:00 Resp 17 08/06/24 15:00 BP 141/68 H 08/06/24 15:00 Pulse Ox 94 08/06/24 15:00 O2 Del Method Room Air 08/06/24 14:00 O2 Flow Rate 2 08/06/24 12:10 BMI result Body Mass Index 28.0 Const: General: no acute distress and alert Nutritional Appearance: not obese Orientation/consciousness: Other orientation findings ( oriented) HEENT: Head: Yes atraumatic Eyes: General: appearance normal, both eyes and all related structures Sclerae: sclerae normal EOM: EOMs intact bilaterally Neck: Neck: Yes supple Lymphatic: no lymphadenopathy noted Resp: Effort & Inspection: normal respiratory effort and no use of accessory muscles Auscultation: clear to auscultation bilaterally Cardio: Rate: regular rate Rhythm: regular rhythm Heart sounds: no gallops, no murmurs and no rubs GI: Palpation (GI): Soft to palpation and Other GI palpation findings present ( Nontender) Auscultation: normal bowel sounds Skin: General skin exam: other ( warm) Extrem: Other: Bilateral femoral access site without hematoma General: No clubbing, No cyanosis and No edema Results Labs 07/23/24 11:01 07/23/24 11:01 Assessment and Plan (1) S/P AAA (abdominal aortic aneurysm) repair: Status: Acute (2) Primary hypertension: Status: Acute Plan Assessment: 69-year-old gentleman postoperative day 0 status post elective endovascular AAA repair being monitored in the intensive care unit. Plan: Neuro: No acute issues. Cardiac: Postoperative day 0 after an elective endovascular AAA repair. Vascular surgery service care appreciated. Maintain SBP under 160. Pulmonary: No acute issues. Renal: No acute issues. Endo: No acute issues. GI: No acute issues. ID: No acute issues Heme/Onc: No acute issues. Psych: No acute issues. Miscellaneous: No acute issues. Prophylaxis: Per vascular surgery Diet: Regular
[2024-08-06] MEDS: ceFAZolin Sodium/Dextrose,Iso 2 GM/50 ML PIGGYBACK IV (16:02)
[2024-08-06] MEDS: 0.9 % Sodium Chloride Flush 3 ML SYRINGE IVFLUSH ×2 (16:05→21:03)
--- NOTE | 2024-08-06 19:09 | PC.NURSE ---
Pt. arrived to ICU from PACU at approx 1245. Pt. A&Ox4, no c/o pain. SR on tele, HR 60s-80s. MAPs>65, BP and HR within parameters set by Dr. Storey. RA with 02>92%, tolerating diet. Ware draining CYU. Repositions self. Post-op abx given per MAR. Pt. updated on plan of care by this RN. Plan of care ongoing.
[2024-08-06] MEDS: Acetaminophen 325 MG TABLET 650 MG PO (19:17)
[2024-08-06] MEDS: oxyCODONE HCl Immed Release 5 MG TABLET PO (21:01)
[2024-08-06] MEDS: Melatonin 3 MG TABLET 6 MG PO (21:01)
--- NOTE | 2024-08-06 23:25 | PC.NURSE ---
Addendum entered by Sivan Jimenez RN 08/07/24 06:03: pt able to void, offers no complaints. plan of care continues Original Note: price removed at 2100 DTV 0300
[2024-08-07] VITALS (11 sets, daily range): BP systolic 114–138; BP diastolic 62–79; PULSE 54–96; RESP 13–20; TEMP 36.4–36.7; O2SAT 92–97; BMI 28.0
[2024-08-07] MEDS: Acetaminophen 325 MG TABLET 650 MG PO (04:52)
[2024-08-07 05:34] LABS: MANUAL DIFF FLAG NO
[2024-08-07 05:39] LABS: Basophils Percent Auto 0.2 % (0-2); Eosinophils Percent Auto 0.3 % (0-4); Hematocrit 40.9 % (42.0-52.0); Hemoglobin 13.9 g/dl (14.0-18.0); Imm Gran Abs Auto 0.05 X10*3/uL (0.00-0.03); Imm Gran Pct Auto 0.4 % (0.0-0.4); Lymphocytes Absolute Auto 2.2 X10*3/uL (1.2-4.9); Lymphocytes Percent Auto 15.5 % (20-40); Mean Corpuscular Volume 91.3 fL (80.0-98.0); Mean Platelet Volume 10.6 fL (9.4-12.4); Monocytes Absolute Auto 1.4 X10*3/uL (0.1-1.2); Monocytes Percent Auto 10.4 % (2-11); Neutrophils Absolute Auto 10.2 x10*3/uL (2.0-8.3); Neutrophils Percent Auto 73.2 % (45-73); Platelet Count 178 X10*3/uL (160-400); Red Blood Count 4.48 X10*6/uL (4.60-5.80); Red Cell Distribution Width 12.9 % (11.0-16.0); White Blood Count 13.9 X10*3/uL (4.8-10.8)
[2024-08-07 05:54] LABS: Albumin Level 3.7 g/dL (3.5-5.0); Anion Gap 13 (12-20); Blood Urea Nitrogen 20 mg/dL (9-16); Calcium 8.9 mg/dL (8.4-10.2); Carbon Dioxide 21 mmol/L (22-29); Chloride 105 mmol/L (96-108); Creatinine Clr Calc Pharmacy 88.2; Estimated Glomerular Filt Rate > 60; Glucose Random 190 mg/dL (60-115); Magnesium 2.2 mg/dL (1.6-2.6); Phosphorus 3.7 mg/dL (2.7-4.5); Sodium 135 mmol/L (135-145)
[2024-08-07] MEDS: 0.9 % Sodium Chloride Flush 3 ML SYRINGE IVFLUSH (08:00)
[2024-08-07] MEDS: amLODIPine Besylate 5 MG TABLET PO (08:01)
--- NOTE | 2024-08-07 08:48 | PM.DS ---
DS: Providers Provider Date of Service: 08/07/24 Date of admission: 08/06/24 10:39 Date of discharge: 08/07/24 Primary care physician: Unknown Physician DS: Diagnosis Discharge Diagnosis (1) S/P AAA (abdominal aortic aneurysm) repair: Status: Acute (2) Primary hypertension: Status: Acute DS: Summary Hospital Course Hospital Course: Segrio is post op day 1 s/p endovascular AAA repair with Dr Storey on 08/06/24. He has been doing well in the ICU. His Ware was removed on the overnight and the pt has not had any difficulty with urination. He states he has been eating and drinking well. He did not get much sleep last night due to the multiple interruptions. He states he has minimal pain, which has been relieved with Tylenol. He denies any pain this morning. He denies any bleeding or drainage from either groin. He states he is ready to go home today. He states he has a significant other at home that will help him out. We discussed not lifting more than a gallon of milk/5# until his follow up appt in 2w. We discussed to rest, but not be sedentary. We discussed the importance of keeping the groins clean and dry but he is able to shower; he cannot submerge in a tub/hottub/river/etc. We discussed the importance of eating a healthy, well balanced diet including proteins and vegetables. The pt states his pain is very well controlled and he does not want any narcotics to go home with; we discussed to take Tylenol if needed for pain. We discussed that if he gets any bleeding/drainage from the groins or has any other concerns, to call our office. We discussed that if he has copious amounts of blood, drainage, or abd pain, nausea, vomiting, and enlarging abdomen, to get to the ER. We will have him follow up in 2w at the office. Status at Discharge Functional status at discharge: independent ambulation Overall status at discharge: patient is back to baseline Time Attestation Discharge Coordination Time (in mins): 45 Quality: Safe Use of Opioids Does Pt have an Active Cancer Diagnosis on the Problem List?: No Quality: Stroke Does the patient have a stroke diagnosis?: No Physical Exam Vital Signs: Vital Signs: Last Vital Signs Temp 97.5 F 08/07/24 08:00 Pulse 79 08/07/24 08:00 Resp 15 08/07/24 08:00 BP 138/69 08/07/24 08:01 Pulse Ox 95 08/07/24 08:00 O2 Del Method Room Air 08/07/24 08:00 O2 Flow Rate 2 08/06/24 12:10 BMI result Body Mass Index 28.0 Const: General: comfortable and no acute distress Orientation/consciousness: patient oriented x3 HEENT: Ears: hearing grossly normal bilaterally Resp: Effort & Inspection: normal respiratory effort and able to speak in complete sentences Auscultation: clear to auscultation bilaterally Cardio: Rate: regular rate Rhythm: regular rhythm Heart sounds: S1 normal heart sound present and S2 normal heart sound present Bruits: no abdominal aortic bruits, no carotid bruits, no femoral bruits and no renal bruits GI: Palpation (GI): No Abdominal aortic bruit present : Other: Bilateral groins: C/D/I. No bleeding or drainage noted. Neuro: General: patient oriented x3 Cranial nerves: Yes CN's II-XII intact bilaterally DS: Data Data Completed and Pending Labs on day of discharge: Laboratory Results - last 24 hr 08/07/24 04:48 WBC 13.9 H RBC 4.48 L Hgb 13.9 L Hct 40.9 L MCV 91.3 MCH 31.0 MCHC 34.0 RDW 12.9 Plt Count 178 MPV 10.6 Immature Gran % (Auto) 0.4 Neut % (Auto) 73.2 H Lymph % (Auto) 15.5 L [place] % (Auto) 10.4 Eos % (Auto) 0.3 Baso % (Auto) 0.2 Lymph # (Auto) 2.2 [place] # (Auto) 1.4 H Eos # (Auto) 0.0 Baso # (Auto) 0.0 Abs Immat Gran (auto) 0.05 H Absolute Neuts (auto) 10.2 H Absolute Nucleated RBC 0.000 Nucleated RBC % (auto) 0.0 Sodium 135 Potassium 4.0 D Chloride 105 Carbon Dioxide 21 L Anion Gap 13 BUN 20 H Creatinine 0.91 Estim Creat Clear Calc 88.2 Estimated GFR > 60 Random Glucose 190 H Calcium 8.9 D Phosphorus 3.7 Magnesium 2.2 Albumin 3.7 Discharge Plan Discharge Anticipated Discharge Date/Time: 08/07/24 12:42 Patient Disposition: Home, Self-Care Discharge Diagnosis: s/p endovascular AAA repair Referrals: Physician,Unknown J [Primary Care Provider] - 1 Week Discharge Medications: Continued amlodipine 5 mg tablet 5 mg PO DAILY Discharge Orders: Discharge Order (Routine); Ordered 08/07/24 Ordered By: Radhika Perez Diet: Advance to usual diet Activity on Discharge: As tolerated Stand Alone Forms: Patient Portal Discharge page Print Language: Luxembourgish Activity Restrictions/Additional Instructions: Skin glue was yesterday and you may shower as early as today. Do not submerge in a tub/hottub. Take it easy over the next 2 weeks and you may ambulate around the house. You may climb a flight of stairs as tolerated Do not lift anything heavier than a gallon of milk for 2 weeks, until cleared at your follow up appt. See Dr. Storey in follow-up in approximately 2 weeks time. You should already have an appointment if not please call my office at [phone] If you notice excessive bleeding from the groins, please immediately call my office or return to the emergency room. If you experience any abd pain, nausea, or vomiting as well as abdomen getting larger, please go to the ER. Care Plan Goals: Light activity as tolerated. Do not lift more than 5 pounds (a gallon of milk) for the next 2 weeks. Take Tylenol for pain control. Health Concerns: HTN, s/p AAA repair Plan of Treatment: Continue with blood pressure control/medications. Eat a healthy, well balanced diet with protein and vegetables. Rest but do not stay sedentary. Assessment: s/p endovascular AAA repair.
--- NOTE | 2024-08-07 10:03 | MHC.CM.PN ---
Pt admitted for vascular surgery: states he is independent with care needs and has transportation to home. No DME or services. IMM given and in chart. CM to follow for changes in dc plan
== END 2024-08-07 10:18 | disposition home or self-care (01) | DRG 269 ==
PROVIDERS: Nurse Practitioner; Surgery Vascular Surgery; Admitting Provider Physician Assistant Surgical; Visit Provider Internal Medicine Pulmonary Disease
PROC: 04V03ZZ Restriction of Abdominal Aorta, Percutaneous Approach (ICD-10-PCS; principal; 2024-08-06 07:30)
DX: I71.43 Infrarenal abdominal aortic aneurysm, without rupture (principal); I10 Essential (primary) hypertension; F17.210 Nicotine dependence, cigarettes, uncomplicated; Z71.6 Tobacco abuse counseling; Z79.899 Other long term (current) drug therapy
CPT/HCPCS: 36415; 76000; 80048; 82040; 83735; 84100; 85025; 85027; 85610; 85730; 86850; 86900; 86901; C1769; C1874; C1887; C2628; C9250; J0690; J7120

== ENCOUNTER → 2024-08-06 10:39 | Outpatient (BNV) | payer MEDICARE, SELFPAY | PROVIDERS: Admitting Provider Physician Assistant Surgical; Visit Provider Surgery Vascular Surgery | DX: I71.40 Abdominal aortic aneurysm, without rupture, unspecified (principal) | CPT/HCPCS: 34705; 34812; 99232 ==

== ENCOUNTER → 2024-08-06 10:39 | Outpatient (BNV) | payer MEDICARE, SELFPAY | PROVIDERS: Admitting Provider Physician Assistant Surgical; Visit Provider Internal Medicine Pulmonary Disease | DX: Z98.890 Other specified postprocedural states (principal); Z86.79 Personal history of other diseases of the circulatory system; I10 Essential (primary) hypertension | CPT/HCPCS: 99223 ==

== ENCOUNTER 2024-08-21 08:51 | Outpatient (AMB) | payer MEDICARE, SELFPAY ==
--- NOTE | 2024-08-21 09:02 | MHC.OFFVIS ---
Intake Visit Reasons: 2 week post op s/p EVAR 08/06/24 Intake Note: Patient is here for his two week follow up s/p EAR performed on 08/06/24. He has no complaints. Accompanied by: Self / Same As Patient Allergies No Known Allergies Allergy (Verified 08/21/24 09:03) HPI HPI 2 week post op s/p EVAR 08/06/24: Details: The patient is a 69-year-old male presenting with a history of endovascular aortic aneurysm repair. The procedure involved the use of an ALTO device and was performed on August 06, 2024. The surgery was reportedly successful, and the patient currently feels well. The healing process, particularly of the incisions, is progressing satisfactorily as confirmed during the physical examination. The patient was guided on postoperative care, including the use of soap and water to remove glue from incision areas. Patient now for routine postprocedure follow-up [facility] Medical History AAA (abdominal aortic aneurysm) History of skin cancer Primary hypertension Surgical History Hx of removal of neck cyst (~2021) Hx of colonoscopy Hx of total knee replacement (2023) Hx of bilateral inguinal hernia repair (2023) History of arthroplasty of left ankle (~2009) H/O hernia repair History of appendectomy (2023) Family History Father Thoracic aortic aneurysm Social History Household Members: Significant Other Housing: House Are you a primary personal care service provider to a significant other at home: No Do you presently have visiting nurse or other home services: No Patient Tobacco Use Status: Current everyday Tobacco user Tobacco use type: Cigarette Cigarette Packs Per Day: 0.5 Cigarettes Per Day: 10.0 e-Cigarette/Vaping Use: Currently Using Review of Systems Const All systems reviewed & are unremarkable except as noted in HPI and below Reports no additional complaints ENT Reports Normal hearing present Card Denies chest pain, Denies chest pain at rest, Denies chest pain with activity and Denies pedal edema Resp Denies cough GI Denies abdominal pain Musc Denies abnormal gait, Denies muscle cramps and Denies radiating pain into limb Skin/Breast Denies skin ulcer and Denies wounds Neuro Reports Normal hearing present and Denies abnormal gait Psych Reports no additional complaints Physical Exam Const General: cooperative, healthy appearing and comfortable Orientation/consciousness: oriented to person, oriented to place and oriented to time HEENT Head: Yes normal to inspection Neck Neck: Yes normal visual inspection Carotids: no bruits Chest Chest palpation & inspection: normal inspection of the chest Resp Effort & Inspection: normal respiratory effort and able to speak in complete sentences Auscultation: clear to auscultation bilaterally, no crackles, no rales, no rhonchi and no wheezes Cardio Rate: regular rate Rhythm: regular rhythm Heart sounds: S1 normal heart sound present and S2 normal heart sound present Bruits: no carotid bruits Peripheral pulses: Peripheral pulses 2+ throughout GI Inspection: Yes normal to inspection Skin Other: Bilateral groins well healed Wounds: no wounds Hair: normal Neuro General: oriented to person, oriented to place and oriented to time Cranial nerves: Yes CN's II-XII intact bilaterally and Yes Normal hearing present Cognition (Neuro): normal cognition Motor exam (neuro): 5/5 motor strength present throughout Extrem Other: venous exam: No significant superficial varicosities or spider telangiectasias, minimal edema General: No clubbing, No cyanosis and No edema Psych Appearance: grossly normal Mental Status: mental status grossly normal Speech and movement: Normal speech and movement present Assessment & Plan Assessment & Plan (1) AAA (abdominal aortic aneurysm) without rupture: Comment: 08/06/2024 - endovascular repair of aortic aneurysm with [employer] device Code(s): I71.40 - Abdominal aortic aneurysm, without rupture, unspecified Category: Medical Qualifiers: Abdominal aorta location: infrarenal aorta Qualified Code(s): I71.43 - Infrarenal abdominal aortic aneurysm, without rupture Plan: In short patient has done well with endovascular repair of aortic aneurysm. We have discussed the pathophysiology of aortic aneurysms and the risk of ruptures. We have discussed rupture risk based on size. In addition we have discussed conservative measures and risk factor modification for prevention of increase in size of the aneurysm. the patient is scheduled for surveillance follow-up in approximately 3 months. Thank you for allowing us to participate in the care of this patient (2) Bilateral carotid artery stenosis: Code(s): I65.23 - Occlusion and stenosis of bilateral carotid arteries Category: Medical Plan: There was a concern of a bruit. Will plan for carotid evaluation in 3 months at the time of his follow-up for his aneurysm as well. Thank you for allowing us to assist in his care. Orders: Orders US carotid duplex BI 3 Months I65.23 - Occlusion and stenosis of bilateral carotid arteries Blood Urea Nitrogen 3 Months I71.43 - Infrarenal abdominal aortic aneurysm, without rupture Creatinine 3 Months I71.43 - Infrarenal abdominal aortic aneurysm, without rupture CT angio abdomen pelvis 3 Months I71.43 - Infrarenal abdominal aortic aneurysm, without rupture Coding Level of Care Code Est Pt Level 4 (85249) Complex EM visit Add On G2211 Diagnoses Infrarenal abdominal aortic aneurysm (AAA) without rupture I71.43 Abdominal aorta location: infrarenal aorta Bilateral carotid artery stenosis I65.23
--- OUTSIDE RECORDS SUMMARY | 2024-08-21 09:27 | XMS_ITS | Encounter Summary ---
Author Organization [employer] Address [address] [facility] [address] [place] [address] Care Team Providers Care Grounds And Nursery Specialist Name Role Phone Kathy Hernandez PA-C Primary Care Provider Unav ailable Encounter Details Date Type Department Care Team (Late st Contact Info) Description 04/14/2023 Orders Only [facility] Information Management [address] [place] [address] Kathy Hernandez PA-C Social History Tobacco Use [...] on filedocumented in this encounter Care Teams Grounds And Nursery Specialist Relationship Specialty Start Date End Date Kathy Hernandez PA-C PCP - General Family Medicine 05/06/22 documented as of this encounter
== END 2024-08-21 09:33 | disposition home or self-care (01) ==
PROVIDERS: Visit Provider Surgery Vascular Surgery
DX: I71.43 Infrarenal abdominal aortic aneurysm, without rupture (principal); I65.23 Occlusion and stenosis of bilateral carotid arteries
CPT/HCPCS: 99024

== ENCOUNTER → 2024-08-21 08:51 | Outpatient (BNVA) | payer MEDICARE, SELFPAY | PROVIDERS: Visit Provider Surgery Vascular Surgery | DX: Z48.812 Encounter for surgical aftercare following surgery on the circulatory system (principal); I71.43 Infrarenal abdominal aortic aneurysm, without rupture; I65.23 Occlusion and stenosis of bilateral carotid arteries; Z98.890 Other specified postprocedural states | CPT/HCPCS: 99212 ==

== ENCOUNTER 2024-11-26 12:34 | Outpatient (REF) | payer MEDICARE, SELFPAY ==
--- NOTE | ~2024-11-26 | CT_ITS ---
EXAMINATION: CT ANGIOGRAM ABDOMEN AND PELVIS CLINICAL INFORMATION: Infrarenal abdominal aortic aneurysm. COMPARISON: CT angiography abdomen dated June 25, 2024 reported a 5.3 x 5.1 cm aneurysm. TECHNIQUE: Multiple axial images were obtained through the abdomen and pelvis following the administration of 80 mL of Omnipaque 350 intravenous contrast during the arterial phase. Images were reviewed on a dedicated 3-D workstation. This CT examination was performed using dose optimization techniques as appropriate, variously including the following: *Automated exposure control *Adjustment of mA and/or kV according to patient size (this includes techniques or standardized protocols for targeted exams where dose is matched to indication/reason for exam; i.e. extremities or head) *Use of iterative reconstruction technique DLP: 477 mGy centimeter. FINDINGS: No adnexal precontrast images. There is an intraluminal stenting graft in the descending thoracic aorta/suprarenal abdominal aorta with normal enhancement pattern of the lumen. No gross IV contrast extravasation or periaortic leak. There is an infrarenal abdominal aorta diameter of 4.8 x 4.5 cm. There is an Endo aortoiliac graft stenting. There is contrast within the lumen of the stent. There is no IV contrast extravasation from the margins of the stent or the proper aneurysm. The right common iliac artery diameter is 1.6 cm. The left common iliac artery diameter is 1.3 cm. No periaortic edema pattern or contrast leak. The main renal arteries are patent. The celiac trunk demonstrates a focal, 10 mm segment of high degree stenosis likely 90%. The superior mesenteric artery is patent. I do not see IV contrast enhancement in the inferior mesenteric artery. The common femoral arteries are patent without IV contrast extravasation or gross vascular irregularity. Calcified plaques are present. Superficial femoral arteries are patent without IV contrast administration or vascular irregularity. Ancillary findings: Small fat-containing umbilical hernia. Status post mesh at the inguinal canals bilaterally. Normal enhancement pattern of the renal cortex both kidneys. No hydronephrosis in either kidney. Multilevel thoracolumbar spondylosis pronounced at L5-S1. CT/CT angio abdomen pelvis IMPRESSION: Status post Endo aortoiliac graft stenting of the infrarenal abdominal aneurysm without gross leak. Status post stenting suprarenal abdominal aorta without leak. High degree stenosis proximal celiac trunk. Fleischner guidelines were followed. Electronically signed by: Harinder Churchill MD 11/26/2024 02:39 PM EDT
--- NOTE | ~2024-11-26 | US_ITS ---
EXAMINATION: US EXTRACRANIAL CAROTID DUPLEX, BILATERAL CLINICAL INFORMATION: Evaluation for Occlusion and stenosis of bilateral carotid arteries COMPARISON: None available. TECHNIQUE: Real-time ultrasound and Doppler techniques (integrating B-mode 2-D vascular images, Doppler spectral analysis and color-flow Doppler imaging) were utilized to interrogate the extracranial carotid arteries, the vertebral arteries and proximal subclavian arteries bilaterally. The degree of stenosis is determined by criteria similar to NASCET. FINDINGS: Right Side: 1. There is mild atherosclerotic plaque seen in the bifurcation/proximal ICA region. 2. The common carotid artery PSV proximally is 90 cm/s and distally 55 cm/s. 3. The proximal internal carotid artery velocities are 29 cm/s systolic and 12 cm/s diastolic. 4. The proximal external carotid artery PSV is 77 cm/s. 5. The vertebral artery is not well-demonstrated. 6. The subclavian artery waveforms are biphasic. ICA/CCA ratio measured 0.32. Left Side: 1. There is mild atherosclerotic plaque seen in the bifurcation/proximal ICA region. 2. The common carotid artery PSV proximally is 76 cm/s and distally 35 cm/s. 3. The proximal internal carotid artery velocities are 21 cm/s systolic and 6 cm/s diastolic. 4. The proximal external carotid artery PSV is 79 cm/s. 5. The vertebral artery shows antegrade flow. 6. The subclavian artery waveforms are biphasic. ICA/CCA ratio measured 0.28 US/US carotid duplex BI IMPRESSION: 1. RIGHT: No hemodynamically significant stenosis. 2. LEFT: No hemodynamically significant stenosis. Peak systolic velocities in the proximal ICAs is subjectively low raising question of decreased cardiac output or a more proximal stenosis. Electronically signed by: Clinton Lowe MD 11/26/2024 02:18 PM EDT
[2024-11-26] MEDS: iohexoL 350 MG/ML 100 ML INFUS..BTL IV (14:02)
--- OUTSIDE RECORDS SUMMARY | 2024-11-26 14:48 | XMS_ITS | Encounter Summary ---
Author Organization [employer] Address [address] [facility] [address] [place] [address] Care Team Providers Care Egg Processor Name Role Phone Kathy Hernandez PA-C Primary Care Provider Unav ailable Encounter Details Date Type Department Care Team (Late st Contact Info) Description 08/02/2023 Orders Only [address] [address] Kathy Hernandez PA-C Arthralgia of multiple joints [...] as of this encounter Plan of Treatment Upcoming Encounters Date Type Department Care Team (Late st Contact Info) Description 12/24/2024 9:20 AM EDT Office Visit [address] [address] Ashley Sanchez FNP [address] [place] [address] 03/04/2025 8:20 AM EST Office Visit [address] [address] Ashley Sanchez FNP [address] [place] [address] documented as of this encounter Visit Diagnoses Diagnosis Arthralgia of multiple joints Pain in joint, multiple sites documented in this encounter Care Teams Egg Processor Relationship Specialty Start Date End Date Kathy Hernandez PA-C PCP - General Family Medicine 05/06/22 documented as of this encounter
--- OUTSIDE RECORDS SUMMARY | 2024-11-26 14:48 | XMS_ITS | Encounter Summary ---
Author Organization [employer] [facility] Address [address] [facility] 7t [place] [address] Care Team Providers Care Advertising Operations Manager Name Role Phone Kathy Hernandez PA-C Primary Care Provider Unav ailable Encounter Details Date Type Department Care Team (Late st Contact Info) Description 05/06/2022 Orders Only [address] [address] Kathy Hernandez PA-C Social History Tobacco Use [...] Description 12/24/2024 9:20 AM EDT Office Visit [address] [address] Ashley Sanchez FNP [address] [place] [address] 03/04/2025 8:20 AM EST Office Visit [address] [address] Ashley Sanchez FNP [address] [place] [address] documented as of this encounter Procedures Procedure Name Priority Date/Time Associated Diagnosis Comments HEMOGLOBIN A1C Routine 07/20/2022 8:33 AM EDT COMPREHENSIVE METABOLIC PANEL Routine 07/20/2022 8:33 AM EDT documented in this encounter Results * (ABNORMAL) Comprehensive Metabolic Panel (07/20/2022 8:33 AM EDT) Glucose 127(H) (70-99) MG/DL [facility] BUN 13 (8-23) MG/DL [facility] Creatinine, Serum 1.2 (0.7-1.2) MG/DL [facility] Sodium 139 (133-145) MMOL/L [facility] Potassium 5.2 (3.6-5.2) MMOL/L [facility] Chloride 102 (98-107) MMOL/L [facility] Bicarbonate 23 (22-29) MMOL/L [facility] Anion Gap 14 (4-17) [facility] Albumin 4.6 (3.4-4.8) GM/DL [facility] Calcium 10.0 (8.6-10.5) MG/DL [facility] Bilirubin, Total 0.6 (0-1.2) MG/DL [facility] Total Protein 6.9 (6.2-8.2) GM/DL [facility] Albumin/Globulin Ratio 2.0 [facility] AST 29 (0-40) U/L [facility] Alkaline Phosphatase 72 (40-129) U/L [facility] ALT (SGPT) 53(H) (0-41) U/L [facility] eGFR Creatinine 67 ML/MIN/1.7 3 M2 [facility] Comment: Creatinine based estimated glomerular filtration (eGFR) in adults is calculated using the National Kidney Foundation recommended 2020 CKD-EPI equation. Estimates GFR from serum creatinine, age and sex. Testing performed or reported by [facility], a Service of [facility], [address] [place] [address] Ann-Marie Cervantes MD, Assistant Federal Public Defender [facility]# [id number] 07/20/2022 8:33 AM EDT 07/20/2022 8:34 AM EDT us Kathy Hernandez PA-C LAB BLOOD ORDERABLES Final Result [facility] [address] [place] [address] * (ABNORMAL) Hemoglobin A1c (07/20/2022 8:33 AM EDT) Hemoglobin A1C 6.2(H) (4.0-5.6) % [facility] Comment: MONITORING: In known diabetic patients, hemoglobin A1c targets should be discussed with health care provider. DIAGNOSTIC USE: The [place] Diabetes Association (ADA) and the World Health [...] Supplement 1 Testing performed or reported by [facility] [facility], a Service of [facility], [address] [place] [id number] Ann-Marie Cervantes MD, Assistant Federal Public Defender [facility]# [id number] 07/20/2022 8:33 AM EDT 07/20/2022 8:34 AM EDT us Kathy Hernandez PA-C LAB BLOOD ORDERABLES Final Result [facility] [address] [place] [phone] documented in this encounter Visit Diagnoses Not on filedocumented in this encounter Care Teams Advertising Operations Manager Relationship Specialty Start Date End Date Kathy Hernandez PA-C PCP - General Family Medicine 05/06/22 documented as of this encounter
--- OUTSIDE RECORDS SUMMARY | 2024-11-26 14:48 | XMS_ITS | Encounter Summary ---
Author Organization [employer] [facility] Address [address] [facility] 7t [place] [address] Care Team Providers Care Display And Banner Designer Name Role Phone Kathy Hernandez PA-C Primary [...] Description 12/24/2024 9:20 AM EDT Office Visit [address] [address] Ashley Sanchez FNP [address] [place] [address] 03/04/2025 8:20 AM EST Office Visit [facility] [address] [place] [address] Ashley Sanchez FNP [address] [place] [address] documented as of this encounter Visit Diagnoses Not on filedocumented in this encounter Care Teams Display And Banner Designer Relationship Specialty Start Date End Date Kathy Hernandez PA-C PCP - General Family Medicine 05/06/22 documented as of this encounter
--- OUTSIDE RECORDS SUMMARY | 2024-11-26 14:48 | XMS_ITS | Encounter Summary ---
Author Organization [employer] [facility] Address [address] [facility] 7t [place] [address] Care Team Providers Care Merry Go Round Attendant Name Role Phone Kathy Hernandez PA-C Primary [...] Description 12/24/2024 9:20 AM EDT Office Visit [address] [address] Ashley Sanchez FNP [address] [place] [address] 03/04/2025 8:20 AM EST Office Visit [facility] [address] [place] [address] Ashley Sanchez FNP [address] [place] [address] documented as of this encounter Visit Diagnoses Not on filedocumented in this encounter Care Teams Merry Go Round Attendant Relationship Specialty Start Date End Date Kathy Hernandez PA-C PCP - General Family Medicine 05/06/22 documented as of this encounter
--- OUTSIDE RECORDS SUMMARY | 2024-11-26 14:48 | XMS_ITS | Encounter Summary ---
Author Organization [employer] Address [address] 7t [place] [address] Care Team Providers Care Regional Retail Sales Manager Name Role Phone Kathy Hernandez PA-C Primary Care Provider Unav ailable Encounter Details Date Type Department Care Team (Late st Contact Info) Description 07/30/2024 Orders Only [facility] [address] [place] [address] PcpMeng Unassigned Social History Tobacco Use Types [...] Description 12/24/2024 9:20 AM EDT Office Visit [address] [address] Ashley Sanchez [address] [address] 03/04/2025 8:20 AM EST Office Visit [address] [address] Ashley Sanchez FNP [address] [place] [address] documented as of this encounter Procedures Procedure Name Priority Date/Time Associated Diagnosis Comments STRESS TEST WITH MYOCARDIAL PERFUSION Routine 07/25/2024 10:52 AM EDT documented in this encounter Results * Stress test with myocardial perfusion (07/25/2024 10:52 AM EDT) Result [facility] Unassigned Pcp CV STRESS PROCEDURES Fin al Result documented in this encounter Visit Diagnoses Not on filedocumented in this encounter Care Teams Regional Retail Sales Manager Relationship Specialty Start Date End Date Kathy Hernandez PA-C PCP - General Family Medicine 05/06/22 documented as of this encounter
--- OUTSIDE RECORDS SUMMARY | 2024-11-26 14:48 | XMS_ITS | Encounter Summary ---
Author Organization [employer] [facility] Address [address] [facility] 7t [place] [address] Care Team Providers Care Financial Institution Vice President Name Role Phone Kathy Hernandez PA-C Primary Care Provider Unav ailable Encounter Details Date Type Department Care Team (Late st Contact Info) Description 04/14/2023 Orders Only [facility] [address] [place] [address] Kathy Hernandez PA-C Social History Tobacco Use [...] Description 12/24/2024 9:20 AM EDT Office Visit [address] [address] Ashley Sanchez FNP [address] [place] [address] 03/04/2025 8:20 AM EST Office Visit [address] [address] Ashley Sanchez FNP [address] [place] [address] documented as of this encounter Procedures Procedure Name Priority Date/Time Associated Diagnosis Comments PATHOLOGY REPORT (HISTOPATHOLOGY) Routine 04/08/2023 documented in this encounter Results * Pathology Report (04/08/2023) Tissue Kathy Hernandez PA-C LAB PATHOLOGY ORDERABLES Ed ited Result - Final documented in this encounter Visit Diagnoses Not on filedocumented in this encounter Care Teams Financial Institution Vice President Relationship Specialty Start Date End Date Kathy Hernandez PA-C PCP - General Family Medicine 05/06/22 documented as of this encounter
--- OUTSIDE RECORDS SUMMARY | 2024-11-26 14:48 | XMS_ITS | Clinical Summary ---
Author Organization [facility] Address [address] [place], [place] [id number] Phone Care Team Providers Care Wire Insulator Name Role Phone Pcp, Unknown Primary Care Provider Unavailabl e Medications acetaminophen (TYLENOL) 325 mg tablet Take 650 mg by mouth every 4 (four) hours as needed for pain (specific location in comments). 01/13/2023 Active docusate sodium (COLACE ORAL) Take 100 mg by mouth 2 (two) times a day. 01/13/2023 Active Social History Tobacco Use Types Packs/Day Years Used Date Smoking Tobacco: Never Assessed Home Health Assessment: Transportation Answer Date Recorded Lack of Transportation (Medical) No 01/25/2023 Lack of Transportation (Non-Medical) No 01/25/2023 Patient Unable or Declines to Respond No 01/25/2023 Education Answer Date Recorded Are you interested in more education? Not on lokesh e 01/12/2023 Are you concerned about learning? Not on file 01/12/2023 No 01/12/2023 No 01/12/2023 Digital Access Answer Date Recorded No 01/12/2023 No 01/12/2023 Reliable internet access at home? Not on file 01/12/2023 Device with a working camera? Not on file Sex and Gender Information Value Date Recorded Sex Assigned at Not on file Legal Sex Male 11:04 AM EST Gender Identity Not on file Sexual Orientation Not on file Last Filed Vital Signs Vital Sign Reading Time Taken Comments Blood Pressure - - Pulse - - Temperature 36.5 C (97.7 F) 01/18/2023 2:37 PM EDT Respiratory Rate - - Oxygen Saturation - - Inhaled Oxygen Concentration - - Weight - - Height - - Body Mass Index - - Plan of Treatment Health Maintenance Due Date Last Done Comments LIPID PANEL 1957 DEPRESSION SCREENING 1969 SMOKING Hx and SMOKELESS TOB ACCO SCREENING 1970 HEPATITIS C SCREENING 1975 COLOGUARD 2002 COLONOSCOPY 2002 COLORECTAL CANCER SCREENING 2002 FIT TEST 2002 FOBT 2002 SIGMOIDOSCOPY 2002 VIRTUAL COLONOSCOPY 2002 PNEUMOCOCCAL VACCINES (50+ y ears) (1 of 1 - PCV) 2007 ZOSTER VACCINES (1 of 2) 2007 COVID-19 VACCINE (1 - 2023-2 5 season) 2023 RSV VACCINE (1 - 1-dose 75+ series) 2032 Adult Td,Tdap Booster 11/08/2032 11/08/2022 HEPATITIS A VACCINES Aged Out No long er eligible based on patient's age to complete this topic HIB VACCINES Aged Out No longer eligi ble based on patient's age to complete this topic MENINGOCOCCAL VACCINES (ACWY) Aged Out No longer eligible based on patient's age to complete this topic MENINGOCOCCAL VACCINES (B) Aged Out N o longer eligible based on patient's age to complete this topic Medical Devices Not on file Insurance [facility] [place] PART A & B HEALTH MEDICARE PART [place] & B [facility] Care Teams Wire Insulator Relationship Specialty Start Date End Date Pcp, Unknown PCP - General 04/02/20 Additional Source Comments The information contained in this document represents components of the legal health record. It is not the complete legal health record.[facility]
--- OUTSIDE RECORDS SUMMARY | 2024-11-26 14:48 | XMS_ITS | Clinical Summary ---
Author Organization [employer] Address [address] 7[address] [place] [address] Care Team Providers Care Chain Sales Representative Name Role Phone Kathy Hernandez PA-C Primary [...] diet and exercise Cholesterol, Total (<200) MG/DL 204 High Triglyceride (mg/dL) in Serum/Plasma (<150) MG/DL 261 High HDL Cholesterol (>39) MG/DL 43 37 R LDL Cholesterol, Calculated (0-130) MG/DL 109 Non HDL Chol. (LDL+VLDL) (<160) MG/DL 161 High Non-recurrent bilateral ingu inal hernia without obstruction or gangrene 05/06/2022 Overview (10/13/2023): Has b/l inguinal hernia. S/p repair 06/24/23 Prediabetes 05/06/2022 Overview (11/08/2022): No longer on metformin, last A1C 07/2022 6.2% Smoker 05/06/2022 Overview (05/10/2022): 1/2 ppd. Declines LDCT Resolved Problems Problem Noted Date Diagnosed Date Resolved Date Irritant contact dermatitis due to metals 05/06/2022 05/07/2022 Immunizations Immunization Administration Dates Next Due Tdap [...] 80 01/09/2024 9:00 AM EDT Temperature 36.3 C (97.4 F) 01/09/2024 9:00 AM EDT Respiratory Rate 16 01/09/2024 9:00 AM EDT Oxygen Saturation 94% 11/14/2020 10:30 AM EDT Inhaled Oxygen Concentration - - Weight 92.1 kg (203 lb) 01/09/2024 9:00 AM EDT Height 180.3 cm (5' 11 ) 01/09/2024 9:00 AM EDT Body Mass Index 28.31 01/09/2024 9:00 AM EDT Plan of Treatment Upcoming Encounters Date Type Department Care Team (Late st Contact Info) Description 12/24/2024 9:20 AM EDT Office Visit [facility] [address] [place] [address] Daniel Ashley, [facility] [address] [place] [address] 03/04/2025 8:20 AM EST Office Visit [facility] [address] [place] [address] Eric Sanchezgh, [facility] [address] [place] [address] Health Maintenance Due Date Last Done Comments [...] 06/27/2024 024, 07/20/2022, 11/17/2020, Additional history exists Depression Screening 10/12/2024 10/13/2023, 10/13/19 24 SDOH Screening 10/12/2024 10/13/2023 COVID-19 Vaccine ( season) 2024 Influenza Vaccine (#1) 2024 Lipid Panel 12/27/2024 12/28/2023, 05/0 04/2022, 11/17/2020, Additional history exists Alcohol/Substance Use Screening 01/08/2025 01/09/2024 Hepatitis C Screening 01/08/2025 Postpo ifeoma from [...] 4.8 - 5.6 % [facility] Comment: Prediabetes: 5.7 - 6.4 Diabetes: >6.4 Glycemic control for adults with diabetes: <7.0 Blood Venous blood specimen / Unknown 12/28/2023 8:51 AM EDT 12/28/2023 Narrative [facility] 1 - 12/29/2023 12:05 AM EDT Performed at: [facility] [id number] Ux Engineer: Kandi Posey MD, Phone: [phone] Kathy Hernandez PA-C LAB BLOOD ORDERABLES Final Result Performing Organization Address [facility] de Phone Number [id number] * [...] - 12/29/2023 6:05 AM EDT Performed at: [facility] [id number] Ux Engineer: Kandi Posey MD, Phone: [phone] Kathy Hernandez PA-C LAB BLOOD ORDERABLES Final Result Performing Organization Address [facility] de Phone Number [id number] * COLONOSCOPY (12/16/2020 12:00 AM EDT) Anatomical Region Laterality Modality Endoscopy 12/16/2020 Narrative 12/16/2020 12:00 AM EDT Refer to Fovea for result details [facility] Procedure: COLONOSCOPY Procedure Note ProviderElizabet MD - 07/15/2022 Refer to [facility]ovea for result details Legacy Procedure: COLONOSCOPY Historical Provider ENDOSCOPY PROCEDURE ORDER EMIL Final Result from Last 3 Months or Most Recently Relevant to Health Maintenance Insurance MEDICARE [facility] MEDICARE ADVANTAGE HMO [facility] MEDICAID STAND ADULT [facility] MEDICAID STAND ADULT ([place]) [address] [place] [address] Care Teams Chain Sales Representative Relationship Specialty Start Date End Date Kathy Hernandez PA-C PCP - General Family Medicine 05/06/22
[2024-11-27 07:11] LABS: Creatinine POC 1.0 mg/dL (0.5-1.4); GFR POC > 60
== END 2024-11-26 12:35 | disposition home or self-care (01) ==
LOC: HO.US 12:34
PROVIDERS: Visit Provider Surgery Vascular Surgery
DX: I71.43 Infrarenal abdominal aortic aneurysm, without rupture (principal); I65.23 Occlusion and stenosis of bilateral carotid arteries
CPT/HCPCS: 74174; 82565; 93880; Q9967

== ENCOUNTER → 2024-11-26 12:37 | Outpatient (BNV) | payer MEDICARE, SELFPAY | PROVIDERS: Visit Provider Radiology Diagnostic Radiology | DX: I71.43 Infrarenal abdominal aortic aneurysm, without rupture (principal); I65.23 Occlusion and stenosis of bilateral carotid arteries | CPT/HCPCS: 74174; 93880 ==

== ENCOUNTER 2025-01-24 08:43 | Outpatient (AMB) | payer MEDICARE, SELFPAY ==
--- NOTE | 2025-01-24 08:59 | A.OFFVIS_ITS ---
Intake Visit Reasons: 3m follow up Carotid US/CTA ABD/Pelvis 11/26/24 Intake Note: 3 mo follow up CTA Abd/Pelvis 11/26/24 s/p AAA Repair in August 06, 2024 and routine carotid US 11/26/24. Pt states he has been having chest pain on the left side. Pt states that started after the surgery and not sure if anything makes it worse as he is always active. Accompanied by: Self / Same As Patient Allergies No Known Allergies Allergy (Verified 01/24/25 09:01) HPI HPI 3m follow up Carotid US/CTA ABD/Pelvis 11/26/24: Details: The patient is a 69-year-old male presenting for follow-up regarding a CT scan of the abdomen and pelvis after an aortic endograft repair. The aortic endograft repair was performed on August 06, 2024, using an altograft. The recent CT scan shows that the graft is functioning well, with the sac shrinking from 5.3 cm to 4.8 cm, indicating a positive response to the procedure. The patient reports intermittent tightness in the left side of the chest, which is not constant. The patient has not had a follow-up with a accounts manager since his surgery. He now presents for routine follow-up with CT scan carotid ultrasound. [facility] Medical History AAA (abdominal aortic aneurysm) History of skin cancer Primary hypertension Surgical History Hx of removal of neck cyst (~2021) Hx of colonoscopy Hx of total knee replacement (2023) Hx of bilateral inguinal hernia repair (2023) History of arthroplasty of left ankle (~2009) H/O hernia repair History of appendectomy (2023) Family History Father Thoracic aortic aneurysm Social History Household Members: Significant Other Housing: House Are you a primary auto care center manager to a significant other at home: No Do you presently have visiting nurse or other home services: No Patient Tobacco Use Status: Current everyday Tobacco user Tobacco use type: Cigarette Cigarette Packs Per Day: 0.5 Cigarettes Per Day: 10.0 e-Cigarette/Vaping Use: Currently Using Review of Systems Const All systems reviewed & are unremarkable except as noted in HPI and below Reports no additional complaints ENT Reports Normal hearing present Card Denies chest pain, Denies chest pain at rest, Denies chest pain with activity and Denies pedal edema Resp Denies cough GI Denies abdominal pain Musc Denies abnormal gait, Denies muscle cramps and Denies radiating pain into limb Skin/Breast Denies skin ulcer and Denies wounds Neuro Reports Normal hearing present and Denies abnormal gait Psych Reports no additional complaints Physical Exam Const General: cooperative, healthy appearing and comfortable Orientation/consciousness: oriented to person, oriented to place and oriented to time HEENT Head: Yes normal to inspection Neck Neck: Yes normal visual inspection Carotids: no bruits Chest Chest palpation & inspection: normal inspection of the chest Resp Effort & Inspection: normal respiratory effort and able to speak in complete sentences Auscultation: clear to auscultation bilaterally, no crackles, no rales, no rhonchi and no wheezes Cardio Rate: regular rate Rhythm: regular rhythm Heart sounds: S1 normal heart sound present and S2 normal heart sound present Bruits: no carotid bruits Peripheral pulses: Peripheral pulses 2+ throughout GI Inspection: Yes normal to inspection Skin Wounds: no wounds Hair: normal Neuro General: oriented to person, oriented to place and oriented to time Cranial nerves: Yes CN's II-XII intact bilaterally and Yes Normal hearing present Cognition (Neuro): normal cognition Motor exam (neuro): 5/5 motor strength present throughout Extrem Other: venous exam: No significant superficial varicosities or spider telangiectasias, minimal edema General: No clubbing, No cyanosis and No edema Psych Appearance: grossly normal Mental Status: mental status grossly normal Speech and movement: Normal speech and movement present Results Reviewed Results Reviewed: CT scan dated 11/26/2024 demonstrates appropriately placed endograft with no evidence of endoleak. Ultrasound dated 11/26/2024 demonstrates bilateral 0-49% stenosis. Assessment & Plan Assessment & Plan (1) AAA (abdominal aortic aneurysm) without rupture: Comment: 08/06/2024 - endovascular repair of aortic aneurysm with [place] device Code(s): I71.40 - Abdominal aortic aneurysm, without rupture, unspecified Category: Medical Qualifiers: Abdominal aorta location: infrarenal aorta Qualified Code(s): I71.43 - Infrarenal abdominal aortic aneurysm, without rupture Plan: Doing well status post aortic endograft. Will need six-month surveillance CAT scan. Routine risk factor modification discussed. (2) Bilateral carotid artery stenosis: Code(s): I65.23 - Occlusion and stenosis of bilateral carotid arteries Category: Medical Plan: Carotids are within normal limits no further surveillance required of this. (3) Chest pain due to CAD: Code(s): I25.119 - Atherosclerotic heart disease of [place] coronary artery with unspecified angina pectoris Category: Medical Plan: He did have preoperative cardiac evaluation. Will refer to our cardiology team once again as he does have chest pain on exertion. Unclear if this is angina pectoris. He did see our cardiology team for preoperative workup. Orders: Orders Blood Urea Nitrogen 6 Months I71.43 - Infrarenal abdominal aortic aneurysm, without rupture Creatinine 6 Months I71.43 - Infrarenal abdominal aortic aneurysm, without rupture CT angio abdomen pelvis 6 Months I71.43 - Infrarenal abdominal aortic aneurysm, without rupture Referrals Cardiology Referral I25.119 - Atherosclerotic heart disease of [place] coronary artery with unspecified angina pectoris Coding Level of Care Code Est Pt Level 4 (90309) Complex EM visit Add On G2211 Diagnoses Infrarenal abdominal aortic aneurysm (AAA) without rupture I71.43 Abdominal aorta location: infrarenal aorta Bilateral carotid artery stenosis I65.23 Chest pain due to CAD I25.119
--- OUTSIDE RECORDS SUMMARY | 2025-01-24 09:14 | XMS_ITS | Encounter Summary ---
Author Organization [employer] Address [address] [place] [address] Care Team Providers Care Director Project Management Name Role Phone PcpMeng Unassigned Primary Care Provider Anna Candelario DO Primary Care Provider [phone] Encounter Details Date Type Department Care Team (Late st Contact Info) Description 12/24/2024 Orders Only Meng [facility] MED[facility] [address] [place] [address] Provider, MD Elizabet Social History Tobacco Use Types Packs/Day Years Used Date Smoking Tobacco: Some Days Cigarettes Smokeless Tobacco: Never Alcohol Use Standard Drinks/Week Comments Yes 0 (1 standard drink = 0.6 oz pur e alcohol) moderate Alcohol Answer Date Recorded Frequency of Alcohol Consumption Not on file 01/09/2024 Average Number of Drinks Not on file 024 Frequency of Binge Drinking Not on file 12/20 Score 0 01/09/2024 Housing Stability Answer Date Recorded What is your housing situation today? I am not s ure 12/24/[address] you li ve. Do you have problems with any of the following? None of the above 12/24/2024 Food Insecurity Answer Date Recorded Within the past 12 months, y ou worried that your food would run out before you got money to buy more: Never True 12/24/2024 Within the past 12 months,th e food you bought just didn't last and you didn't have enough money to get more: Never True 08/2024 Transportation Answer Date Recorded In the past 12 months, has l ack of transportation kept you from medical appts, meetings, work or from getting things needed for daily living? No 12/24/2024 Utilities Answer Date Recorded In the past 12 months, has t he electric, gas, oil or water company threatened to shut off services in your home? No 12/24/2024 Depression Answer Date Recorded Patient Health Questionnaire-2 Score 0 12/24/2024 Internet Access Answer Date Recorded Internet Access Q1 Yes 12/24/2024 Internet Access Q2 Not on file 12/24/2024 Sex and Gender Information Value Date Recorded Sex Assigned at Male 05/07/2022 1:28 PM EST Legal Sex Male 5:35 PM EDT Gender Identity Male 05/07/2022 1:28 PM EST Sexual Orientation Choose not to disclose 2022 1:28 PM EST documented as of this encounter Functional Status * Over the past 2 weeks, how often have you been bothered by any of the following problems? Question Answer Date of Assessment Author Little interest or pleasure in doing things Not at all 12/24/2024 9:28 AM EDT Damian Garcia CM A Feeling down, depressed, or hopeless Not at all 12/24/2024 9:28 AM EDT Damian Garcia CM A Patient Health Questionnaire -2 Score 0 12/24/2024 9:28 AM EDT Damian Garcia CM A documented as of this encounter Plan of Treatment Upcoming Encounters Date Type Department Care Team (Late st Contact Info) Description 03/22/2025 9:00 AM EST Office Visit [facility] DENTAL [address] [place] [address] Michael Green 12/25/2025 9:00 AM EDT Office Visit [facility] MEDICAL [address] [place] [address] Ashley Sanchez FNP [address] [place] [address] documented as of this encounter Procedures Procedure Name Priority Date/Time Associated Diagnosis Comments COLONOSCOPY Routine 01/03/2024 11:52 AM EDT SURGICAL PATHOLOGY Routine 01/03/2024 11:51 AM EDT documented in this encounter Results * Colonoscopy (01/03/2024 11:52 AM EDT) Anatomical Region Laterality Modality Endoscopy us Historical Provider ENDOSCOPY PROCEDURE ORDER EMIL Final Result * Surgical Pathology (01/03/2024 11:51 AM EDT) us Historical Provider LAB PATHOLOGY ORDERABLES Final Result documented in this encounter Visit Diagnoses Not on filedocumented in this encounter Care Teams Director Project Management Relationship Specialty Start Date End Date PcpMeng Unassigned PCP - General Family Medicine 12/20/24 01/22/25 Anna Vo DO [address] [place] [address] PCP - General Claim Examiner 01/23/25 documented as of this encounter
--- OUTSIDE RECORDS SUMMARY | 2025-01-24 09:14 | XMS_ITS | Encounter Summary ---
Author Organization [employer] Address [address] [facility] [address] [facility] [address] [place] [address] Care Team Providers Care Sharepoint Net Developer Name Role Phone Kathy Hernandez PA-C Primary Care Provider Unav ailable PcpMengsstori Primary Care Provider U navailable Anna Vo DO Primary Care Provider [phone] Encounter Details Date Type Department Care Team [...] Description 03/22/2025 9:00 AM EST Office Visit [facility] DENTAL [address] [place] [address] Michael Green 12/25/2025 9:00 AM EDT Office Visit [facility] MEDICAL [address] [place] [address] Ashley Sanchez FNP [address] [place] [address] documented as of this encounter Visit Diagnoses Not on filedocumented in this encounter Care Teams Sharepoint Net Developer Relationship Specialty Start Date End Date Kathy Hernandez PA-C PCP - General Family Medicine 05/06/22 12/19/24 Meng Eugenesstori PCP - General Family Medicine 12/20/24 01/22/25 Anna Vo DO [address] [place] [address] PCP - General Shallot Packer 01/23/25 documented as of this encounter
--- OUTSIDE RECORDS SUMMARY | 2025-01-24 09:14 | XMS_ITS | Encounter Summary ---
Author Organization [email or web address] Address [address] [facility] [address] [place] [address] Care Team Providers Care Supply Technician Name Role Phone Kathy Hernandez PA-C Primary Care Provider Unav ailable Pcp [place] Unassigned Primary Care Provider U navailAnna Mckeon DO Primary Care Provider [phone] Encounter Details Date Type Department Care Team (Late st Contact Info) Description 04/14/2023 Orders Only [place] [facility] [address] [place] [address] Kathy Hernandez PA-C Social History Tobacco Use [...] Description 03/22/2025 9:00 AM EST Office Visit [facility] DENTAL [address] [place] [address] Michael Green 12/25/2025 9:00 AM EDT Office Visit [facility] MEDICAL [address] [place], [place] [id number] Ashley Sanchez FNP [address] [place] [address] documented as of this encounter Procedures Procedure Name Priority Date/Time Associated Diagnosis Comments PATHOLOGY REPORT (HISTOPATHOLOGY) Routine 04/08/2023 documented in this encounter Results * Pathology Report (04/08/2023) Tissue Kathy Hernandez PA-C LAB PATHOLOGY ORDERABLES Ed ited Result - Final documented in this encounter Visit Diagnoses Not on filedocumented in this encounter Care Teams Supply Technician Relationship Specialty Start Date End Date Kathy Hernandez PA-C PCP - General Family Medicine 05/06/22 12/19/24 Meng Eugene Unassigned PCP - General Family Medicine 12/20/24 01/22/25 Anna Vo DO [address] [place] [id number] PCP - General Cloth Edge Singer 01/23/25 documented as of this encounter
--- OUTSIDE RECORDS SUMMARY | 2025-01-24 09:14 | XMS_ITS | Clinical Summary ---
Author Organization [facility] Address [address] [place], [place] [id number] Phone Care Team Providers Care Pile Driving Supervisor Name Role Phone Pcp, Unknown Primary Care [...] 2007 ZOSTER VACCINES (1 of 2) 2007 INFLUENZA VACCINE (#1) 2024 COVID-19 VACCINE (1 - 2024-2 6 season) 2024 RSV VACCINE (1 - 1-dose 75+ series) [...] file Insurance MEDICARE PART A & B [facility] MEDICARE PART A & B [facility] [place] PART A & B [place] A & B [facility] MEDICARE PART A & [place] B [facility] Care Teams Pile Driving Supervisor Relationship Specialty Start Date End Date Pcp, Unknown PCP - General 04/02/20 Additional Source Comments The information contained in this document represents components of the legal health record. It is not the complete legal health record.[facility]
--- OUTSIDE RECORDS SUMMARY | 2025-01-24 09:14 | XMS_ITS | Encounter Summary ---
Author Organization [employer] Address [address] [facility] 7[address] [place] [address] Care Team Providers Care Customer Supply Chain Analyst Name Role Phone Kathy Hernandez PA-C Primary Care Provider Unav ailbarrington Pcp, [place] Unassigned Primary Care Provider U araseliailAnna Mckeon DO Primary Care Provider [phone] Encounter Details Date Type Department Care Team (Late st Contact Info) Description 08/02/2023 Orders Only [facility] [address] [place] [address] Kathy Hernandez PA-C Arthralgia of multiple joints [...] Description 03/22/2025 9:00 AM EST Office Visit [facility] DENTAL [address] [place] [address] Michael Green 12/25/2025 9:00 AM EDT Office Visit [facility] MEDICAL [address] [place] [address] Ashley Sanchez FNP [address] [place] [address] documented as of this encounter Visit Diagnoses Diagnosis Arthralgia of multiple joints Pain in joint, multiple sites documented in this encounter Care Teams Customer Supply Chain Analyst Relationship Specialty Start Date End Date Kathy Hernandez PA-C PCP - General Family Medicine 05/06/22 12/19/24 Meng Eugene Unassigned PCP - General Family Medicine 12/20/24 01/22/25 Anna Vo DO [address] [place] [id number] PCP - General Toppiece Chopper 01/23/25 documented as of this encounter
--- OUTSIDE RECORDS SUMMARY | 2025-01-24 09:14 | XMS_ITS | Encounter Summary ---
Author Organization [employer] Address [address] [facility] [address] [place] [address] Care Team Providers Care Marketing/Sales Person Name Role Phone Kathy Hernandez PA-C Primary Care Provider Unav ailable PcpMengsstori Primary Care Provider U navailable Anna Vo DO Primary Care Provider [phone] Encounter Details Date Type Department Care Team [...] 03/22/2025 9:00 AM EST Office Visit [facility] DENTAL [address] [place] [address] Michael Green 12/25/2025 9:00 AM EDT Office Visit [facility] MEDICAL [address] [place] [address] Ashley Sanchez FNP [address] [place] [address] documented as of this encounter Visit Diagnoses Not on filedocumented in this encounter Care Teams Marketing/Sales Person Relationship Specialty Start Date End Date Kathy Hernandez PA-C PCP - General Family Medicine 05/06/22 12/19/24 Meng Eugenesstori PCP - General Family Medicine 12/20/24 01/22/25 Anna Vo DO [address] [place] [address] PCP - General Recycling Operator 01/23/25 documented as of this encounter
--- OUTSIDE RECORDS SUMMARY | 2025-01-24 09:14 | XMS_ITS | Encounter Summary ---
Author Organization [employer] [facility] Address [address] [facility] [address] [place] [address] Care Team Providers Care Apiarist Name Role Phone Kathy Hernandez PA-C Primary Care Provider Unav ailable Pcp, [place] Unassigned Primary Care Provider U navailAnna Mckeon DO Primary Care Provider [phone] Encounter Details Date Type Department Care Team (Late st Contact Info) Description 05/06/[address] [facility] MEDICAL [address] [place] [address] Kathy Hernandez PA-C Social History Tobacco Use [...] Description 03/22/2025 9:00 AM EST Office Visit [facility] DENTAL [address] [place] [address] Michael Green 12/25/2025 9:00 AM EDT Office Visit [facility] MEDICAL [address] [place] [address] Ashley Sanchez FNP [address] [place] [address] documented as of this encounter Procedures Procedure Name Priority Date/Time Associated Diagnosis Comments HEMOGLOBIN A1C Routine 07/20/2022 8:33 AM EDT COMPREHENSIVE METABOLIC PANEL Routine 07/20/2022 8:33 AM EDT documented in this encounter Results * (ABNORMAL) Comprehensive Metabolic Panel (07/20/2022 8:33 AM EDT) Glucose 127(H) (70-99) MG/DL [facility] BUN 13 (8-23) MG/DL [facility] Creatinine, Serum 1.2 (0.7-1.2) MG/DL [facility] Sodium 139 (133-145) MMOL/L [facility] Potassium 5.2 (3.6-5.2) MMOL/L [facility] Chloride 102 (98-107) MMOL/L [facility] Bicarbonate 23 (22-29) MMOL/L [facility] Anion Gap 14 (4-17) [facility] Albumin 4.6 (3.4-4.8) GM/DL [facility] Calcium 10.0 (8.6-10.5) MG/DL [facility] Bilirubin, Total 0.6 (0-1.2) MG/DL [facility] Total Protein 6.9 (6.2-8.2) GM/DL [facility] Albumin/Globulin Ratio 2.0 [facility] AST 29 (0-40) U/L [facility] Alkaline Phosphatase 72 (40-129) U/L [facility] ALT (SGPT) 53(H) (0-41) U/L [facility] eGFR Creatinine 67 ML/MIN/1.7 3 M2 [facility] Comment: Creatinine based estimated glomerular filtration (eGFR) in adults is calculated using the National Kidney Foundation recommended 2020 CKD-EPI equation. Estimates GFR from serum creatinine, age and sex. Testing performed or reported by [facility], a Service of [facility], [address] [place] [address] Ann-Marie Cervantes MD, Creasing Machine Operator [facility]# [id number] 07/20/2022 8:33 AM EDT 07/20/2022 8:34 AM EDT us Kathy Hernandez PA-C LAB BLOOD ORDERABLES Final Result [place] [id number] [place] [address] * (ABNORMAL) Hemoglobin A1c (07/20/2022 8:33 AM EDT) Hemoglobin A1C 6.2(H) (4.0-5.6) % [facility] Comment: MONITORING: In known diabetic patients, hemoglobin A1c targets should be discussed with health care provider. DIAGNOSTIC USE: The [place] Diabetes Association (ADA) and the World Health [...] Supplement 1 Testing performed or reported by [facility], a Service of [facility], [address] [place] [address] Ann-Marie Cervantes MD, Creasing Machine Operator [facility]# [id number] 07/20/2022 8:33 AM EDT 07/20/2022 8:34 AM EDT Kathy Hernandez PA-C LAB BLOOD ORDERABLES Final Result [facility] [address] [place] [id number] documented in this encounter Visit Diagnoses Not on filedocumented in this encounter Care Teams Apiarist Relationship Specialty Start Date End Date Kathy Hernandez PA-C PCP - General Family Medicine 05/06/22 12/19/24 Meng Eugene Unassigned PCP - General Family Medicine 12/20/24 01/22/25 Anna Vo DO [address] [place] [address] PCP - General Cinetechnician 01/23/25 documented as of this encounter
--- OUTSIDE RECORDS SUMMARY | 2025-01-24 09:14 | XMS_ITS | Clinical Summary ---
Author Organization [employer] Address [address] [facility] [place] [place] [address] Care Team Providers Care Bakery Decorator Name Role Phone Anna Vo Primary Care Provider [phone] Allergies No known active allergies Medications fluocinonide (Lidex) 0.05 % cream APPLY TO TRUNK, ARMS, LEGS TWICE A DAY NEEDED FOR FLARES 05/07/2021 Active Active Problems Problem Noted Date Diagnosed [...] Encounters Date Type Department Care Team Description 12/24/2024 11:30 AM EDT Office Visit [facility] DENTAL [address] [place] [address] Nuvia Keys LLD 12/24/2024 9:20 AM EDT Office Visit [facility] MEDICAL [address] [place], [place] [id number] Ashley Sanchez FNP Irritation of ear, left (Primary Dx); Prediabetes; Lipoma of neck; Injury of left ankle, sequela 12/24/2024 Orders Only [facility] MED[facility] [address] [place] [address] Ashley Sanchez FNP 12/24/2024 Orders Only [facility] [address] [place] [address] Provider, MD Elizabet 12/24/2024 Travel from Last 3 Months Immunizations Immunization Administration [...] Not Answered Alcohol Use Standard Drinks/Week Comments Yes 0 [...] Sign Reading Time Taken Comments Blood Pressure 159/100 12/24/2024 11:32 AM EDT Pulse 70 12/24/2024 11:32 AM EDT Temperature 36.4 C (97.6 F) 12/24/2024 9:20 AM EDT Respiratory Rate 16 12/24/2024 9:20 AM EDT Oxygen Saturation 94% 11/14/2020 10:30 AM EDT Inhaled Oxygen Concentration - - Weight 94 kg (207 lb 3.2 oz) 12/24/2024 9:20 AM EDT Height 180.3 cm (5' 11 ) 12/24/2024 9:20 AM EDT Body Mass Index 28.9 12/24/2024 9:20 AM EDT Plan of Treatment Upcoming Encounters Date Type Department Care Team (Late st Contact Info) Description 03/22/2025 9:00 AM EST Office Visit [facility] DENTAL [address] [place] [address] Michael Green 12/25/2025 9:00 AM EDT Office Visit [facility] MED[facility] [address] [place] [address] Ashley Sanchez FNP [address] [place] [address] Health Maintenance Due Date Last Done Comments CT Colonography 1957 Dental Prophylaxis 1957 FIT DNA/Cologuard 1957 FIT 1957 FOBT 1957 Sigmoidoscopy 1957 Hepatitis C Screening 1975 Pneumococcal Vaccine: 50+ Years (1 of 2 - PCV) 1976 Zoster Vaccines (1 of 2) 2007 RSV Patients and Patients Aged 60 years or older (1 - Risk 60-74 years 1-dose series) 2017 Dental Oral Exam 07/16/2021 01/14/2021 Dental X-Ray: Full Mouth 01/16/2024 01/14/2021 Influenza Vaccine (#1) 2025 Postp oned from 11/19/2024 (Patient Refused) Alcohol/Substance Use Screening 12/24/2025 12/24/2024 COVID-19 Vaccine ( season) 2025 Postponed from 11/19/2024 (Patient Refused) Depression Screening 12/24/2025 12/24/2024, 12/25/19 Diabetes: Hemoglobin A1C 12/24/2025 025, 12/28/2023, 07/20/2022, Additional history exists SDOH Screening 12/24/2025 12/24/2024 Tobacco Screening 12/24/2025 12/24/2024 Dental X-Ray: Bitewings 12/25/2025 12/24/2024, 01/14 Colonoscopy 01/02/2027 01/03/2024, 12/16/2020 Colorectal Cancer Screening 01/02/2027 Lipid Panel 12/27/2028 12/28/2023, 05/0 04/2022, 11/17/2020, Additional history exists DTaP/Tdap/Td Vaccines (2 [...] Procedure Name Priority Date/Time Associated Diagnosis Comments CASE PRESENTATION, DETAILED AND EXTENSIVE TREATMENT PLANNING Routine 12/24/2024 11:30 AM EDT BITEWING - SINGLE RADIOGRAPHIC IMAGE Routine 12/24/2024 11:30 AM EDT 29 INTRAORAL - PERIAPICAL FIRST RADIOGRAPHIC IMAGE Routine 12/24/2024 11:30 AM EDT 29 LIMITED ORAL EVALUATION - PROBLEM FOCUSED Routine 12/24/2024 11:30 AM EDT POCT GLYCOSYLATED HEMOGLOBIN (HGB A1C) Routine 12/24/2024 10:10 AM EDT Prediabetes ALBUMIN, RANDOM URINE W/O CREATININE Routine 12/24/2024 9:40 AM EDT COLONOSCOPY Routine 01/03/2024 11:52 AM EDT LIPID PANEL, STANDARD Routine 12/28/2023 8:51 AM EDT Hypertriglyceridem ia INTRAORAL - COMPLETE SERIES OF RADIOGRAPHIC IMAGES Routine 01/14/2021 12:00 AM EDT COMPREHENSIVE ORAL EVALUATION - NEW OR ESTABLISHED PATIENT Routine 01/14/2021 12:00 AM EDT from Last 3 Months or Most Recently Relevant to Health Maintenance Results * (ABNORMAL) POCT glycosylated hemoglobin (Hgb A1c) (12/24/2024 10:10 AM EDT) Hemoglobin A1C 6.0(A) 4.0 - 5.7 % Blood Capillary blood specimen / Unknown 12/24/2024 10:10 AM EDT Ashley Sanchez PUBLIC HEALTH NURSE POINT OF CARE TEST ENTER/ EDIT ORDERABLES Final Result * Albumin, Random Urine W/O Creatinine (12/24/2024 9:40 AM EDT) Albumin, Urine 3.3 Not Estab. ug/mL [facility] 12/24/2024 9:40 AM EDT 12/24/2024 Narrative Resulting Agency Comment Performed at: [address] [place] [id number] Shoemaker Custom: Kandi Posey MD, Phone: [phone] us Ashley Sanchez PUBLIC HEALTH NURSE LAB URINE ORDERABLES Ashlyn l Result Performing Organization Address City/[facility]/ZIP Co de Phone Number [facility] [address] [place] [address] * Colonoscopy (01/03/2024 11:52 AM EDT) Anatomical Region Laterality Modality Endoscopy Historical Provider ENDOSCOPY PROCEDURE ORDER EMIL Final Result * (ABNORMAL) Lipid Panel, Standard (12/28/2023 8:51 [...] - 12/29/2023 6:05 AM EDT Performed at: 01 - [facility] [address] [id number] Shoemaker Custom: Kandi Posey MD, Phone: [phone] Kathy Hernandez PA-C LAB BLOOD ORDERABLES Final Result Performing Organization Address City/[facility] Co de Phone Number [facility] 1 from Last 3 Months or Most Recently Relevant to Health Maintenance Insurance [facility] MEDIC[facility]ANTAGE [facility] D[facility] Care Teams Bakery Decorator Relationship Specialty Start Date End Date Anna Vo DO [address] [place] [address] [place] [address] PCP - General Crimping Machine Operator For Metal 01/23/25
--- OUTSIDE RECORDS SUMMARY | 2025-01-24 09:14 | XMS_ITS | Encounter Summary ---
Author Organization [employer] Address [address] [facility] [address] [place] [address] Care Team Providers Care Cupola Patcher Name Role Phone Kathy Hernandez PA-C Primary Care Provider Unav juliet PcpMeng Unassigned Primary Care Provider U Anna Maurer DO Primary Care Provider [phone] Encounter Details Date Type Department Care Team (Late st Contact Info) Description 07/30/2024 Orders Only [facility] [address] [place] [address] PcpMeng Unassigned Social History Tobacco Use Types [...] Description 03/22/2025 9:00 AM EST Office Visit [facility] DENTAL [address] [place] [address] Michael Green 12/25/2025 9:00 AM EDT Office Visit [facility] MEDICAL [address] [place] [address] Ashley Sanchez FNP [address] [place] [address] documented as of this encounter Procedures Procedure Name Priority Date/Time Associated Diagnosis Comments STRESS TEST WITH MYOCARDIAL PERFUSION Routine 07/25/2024 10:52 AM EDT documented in this encounter Results * Stress test with myocardial perfusion (07/25/2024 10:52 AM EDT) Meng Unasstori Pcp CV STRESS PROCEDURES Fin al Result documented in this encounter Visit Diagnoses Not on filedocumented in this encounter Care Teams Cupola Patcher Relationship Specialty Start Date End Date Kathy Hernandez PA-C PCP - General Family Medicine 05/06/22 12/19/24 Meng Eugene Unassigned PCP - General Family Medicine 12/20/24 01/22/25 Anna Vo DO [address] [place] [address] PCP - General Optical Engineer 01/23/25 documented as of this encounter
== END 2025-01-24 09:48 | disposition home or self-care (01) ==
LOC: HO.HVS 08:43
PROVIDERS: Visit Provider Surgery Vascular Surgery
DX: I71.43 Infrarenal abdominal aortic aneurysm, without rupture (principal); I65.23 Occlusion and stenosis of bilateral carotid arteries; I25.119 Atherosclerotic heart disease of native coronary artery with unspecified angina pectoris
CPT/HCPCS: 99214; G2211

== ENCOUNTER → 2025-01-24 08:43 | Outpatient (BNVA) | payer MEDICARE, SELFPAY | PROVIDERS: Visit Provider Surgery Vascular Surgery | DX: I65.23 Occlusion and stenosis of bilateral carotid arteries (principal); I25.119 Atherosclerotic heart disease of native coronary artery with unspecified angina pectoris; R07.89 Other chest pain; F17.210 Nicotine dependence, cigarettes, uncomplicated; Z86.79 Personal history of other diseases of the circulatory system; Z95.828 Presence of other vascular implants and grafts | CPT/HCPCS: 99212 ==

== ENCOUNTER 2025-02-06 12:13 | Outpatient (AMB) | payer MEDICARE, SELFPAY ==
--- NOTE | 2025-02-06 12:35 | MHC.OFFVIS ---
Vital Signs 02/06/25 12:36 Height 5 ft 10 in Weight 196 lb 3.382 oz BMI 28.2 BP 140/70 H Blood Pressure Location Lt brachial Position Sitting Pulse 87 Pulse Source Pulse Oximeter Intake Visit Reasons: dr lee referral Allergies No Known Allergies Allergy (Verified 01/24/25 09:01) Medication List - Last Reconciled 02/06/25 by Orlando Colon MD No Known Home Meds HPI Comments Details: Sergio returns for follow-up. He was seen in consultation previously for abdominal aortic aneurysm repair. At that time, he underwent preoperative workup including echocardiogram and stress test and cleared as intermediate risk for surgery. The procedure itself was uneventful but he feels that he started developing chest discomfort after the procedure. He feels it like a squeezing sensation in the left chest. Can happen any time. With and without activity. Hence he has been referred back for evaluation. [facility] Medical History AAA (abdominal aortic aneurysm) History of skin cancer Primary hypertension Surgical History Hx of removal of neck cyst (~2021) Hx of colonoscopy Hx of total knee replacement (2023) Hx of bilateral inguinal hernia repair (2023) History of arthroplasty of left ankle (~2009) H/O hernia repair History of appendectomy (2023) Family History Father Thoracic aortic aneurysm Social History Household Members: Significant Other Housing: House Are you a primary home health care coordinator to a significant other at home: No Do you presently have visiting nurse or other home services: No Patient Tobacco Use Status: Current everyday Tobacco user Tobacco use type: Cigarette Cigarette Packs Per Day: 0.5 Cigarettes Per Day: 10.0 e-Cigarette/Vaping Use: Currently Using Review of Systems Const Denies weakness ENT Denies dizziness Card Denies chest pain, Denies chest pain with activity, Denies syncope, Denies rapid heart rate, Denies pedal edema, Denies edema, Denies leg edema, Denies lightheadedness, Denies palpitations, Denies dyspnea, Denies dyspnea on exertion and Denies orthopnea Resp Denies cough, Denies dyspnea and Denies dyspnea on exertion GI Denies hematochezia and Denies change in stool character Musc Denies abnormal gait, Denies muscle cramps, Denies muscle weakness, Denies numbness, Denies radiating pain into limb and Denies tingling Neuro Denies abnormal gait, Denies dizziness, Denies syncope, Denies numbness, Denies tingling and Denies weakness Endo Denies palpitations Physical Exam Vital Signs: Last Vital Signs Pulse 87 02/06/25 12:36 BP 140/70 H 02/06/25 12:36 BMI result Body Mass Index 28.2 Const General: comfortable and no acute distress Orientation/consciousness: patient oriented x3 HEENT Other: Unremarkable Head: Yes normal to inspection Neck Neck: Yes normal visual inspection Chest Chest palpation & inspection: normal inspection of the chest Resp Auscultation: clear to auscultation bilaterally Cardio Palpation: normal PMI Heart sounds: S1 normal heart sound present, S2 normal heart sound present, no gallops, no murmurs and no rubs GI Palpation (GI): Soft to palpation Back/Spine/Pelvis Other: unremarkable Skin General skin exam: no rashes or lesions noted Neuro General: patient oriented x3 Extrem General: Yes normal to inspection Psych Mental Status: mental status grossly normal Office Procedures EKG Details: EKG with underlying sinus rhythm at 68/Min; nonspecific ST-[place] changes; [place] [id number], Complete Assessment & Plan Assessment & Plan (1) Precordial chest pain: Code(s): R07.2 - Precordial pain Category: Medical (2) AAA (abdominal aortic aneurysm) without rupture: Comment: 08/06/2024 - endovascular repair of aortic aneurysm with Callender device Code(s): I71.40 - Abdominal aortic aneurysm, without rupture, unspecified Category: Medical Qualifiers: Abdominal aorta location: infrarenal aorta Qualified Code(s): I71.43 - Infrarenal abdominal aortic aneurysm, without rupture Plan Testing done as part of preoperative evaluation- Echocardiogram, LVEF 50-55%. Mild aortic valve calcification. Myocardial perfusion imaging study negative at 8.2 METS. Overall, smoker, vascular disease, chest pains of uncertain etiology. He needs evaluation for underlying coronary disease. We we will schedule him for a diagnostic catheterization in the near future. In the interim, start aspirin, beta-blockers and try sublingual nitroglycerin as needed. He can check lab work and potentially statins after that. If any severe chest pain that does not resolve, advised to seek emergency care immediately. He understands that. Discussion Notes I explained to the patient that the source of his sporadic chest tightness is not certain at this time. I emphasized that given his history of smoking and a prior aneurysm, it is important to investigate for a cardiac cause, though irritation of the lung lining is also possible. I recommended a cardiac angiogram as the definitive method to evaluate his coronary arteries. I described that this is a same-day procedure performed at [facility] [place] by my colleague, involving a catheter placed through the wrist. I instructed him to start taking daily low-dose aspirin (81 mg), and informed him I would be sending prescriptions for this, another medication to help with chest pain, and sublingual nitroglycerin for as-needed use. I provided strict return precautions, advising him to call 911 or go to the emergency room if his chest pain persists, as this could be a heart attack. I also advised him to avoid strenuous activities until we have a clearer diagnosis. Patient was informed and verbally consented to the use of an ambient scribe for clinic note documentation during this visit. Orders: Orders Complete Blood Count no Diff Today R07.2 - Precordial pain Prothrombin Time INR Today R07.2 - Precordial pain Comprehensive Met. Panel Today R07.2 - Precordial pain Lipid Panel Today E78.5 - Hyperlipidemia, unspecified, R07.2 - Precordial pain Medications: New aspirin (Adult Aspirin Regimen) 81 mg PO DAILY 90 tabs 3RF R07.2 - Precordial pain nitroglycerin do not exceed 3 doses per episode 0.4 mg sublingual Q5M PRN 30 tabs 5RF chest pain R07.2 - Precordial pain metoprolol succinate ER (Toprol XL) 50 mg PO DAILY 90 tabs 1RF R07.2 - Precordial pain Patient Instructions: - Start taking one baby aspirin (81 mg) every day. - You will receive prescriptions for a medication to help with your chest pains and for nitroglycerin tablets. - If you feel chest pain, place one nitroglycerin tablet under your tongue and rest; do not drive after taking it. - Please get the lab work that were ordered for you today. - An appointment for a heart catheterization (angiogram) will be arranged for you at [facility] [place]. - Avoid strenuous activities or heavy work for now. - If you experience chest pain that comes on and does not go away, it could be a heart attack. Call 911 or go to the nearest emergency room right away. Coding Level of Care Code Est Pt Level 5 (81150) Complex EM visit Add On G2211 Diagnoses Precordial chest pain R07.2 Infrarenal abdominal aortic aneurysm (AAA) without rupture I71.43 Abdominal aorta location: infrarenal aorta CPT Codes EKG - CPT: [id number], Complete ([id number])
[2025-02-06 12:36] VITALS: BP 140/70; PULSE 87; BMI 28.2
--- OUTSIDE RECORDS SUMMARY | 2025-02-06 23:18 | XMS_ITS | Encounter Summary ---
Author Organization [employer] Address [address] [facility] [address]t [place] [address] Care Team Providers Care Pickle Processor Name Role Phone Kathy Hernandez PA-C Primary Care Provider Unav ailable PcpMengsstori Primary Care Provider U navailable Anna Vo DO Primary Care Provider [phone] Encounter Details Date Type Department Care Team [...] Description 03/22/2025 9:00 AM EST Office Visit [facility] DENTAL [address] [place] [address] Michael Green 12/25/2025 9:00 AM EDT Office Visit [facility] MEDICAL [address] [place] [address] Ashley Sanchez FNP [address] [place] [address] documented as of this encounter Visit Diagnoses Not on filedocumented in this encounter Care Teams Pickle Processor Relationship Specialty Start Date End Date Kathy Hernandez PA-C PCP - General Family Medicine 05/06/22 12/19/24 Meng Eugenesstori PCP - General Family Medicine 12/20/24 01/22/25 Anna Vo DO [address] [place] [address] PCP - General Music Ministries Director 01/23/25 documented as of this encounter
--- OUTSIDE RECORDS SUMMARY | 2025-02-06 23:18 | XMS_ITS | Encounter Summary ---
Author Organization [employer] Address [address] [facility] 7t [place] [address] Care Team Providers Care Inorganic Chemist Name Role Phone Kathy Hernandez PA-C Primary Care Provider Unav ailable PcpMengsstori Primary Care Provider U navailable Anna Vo DO Primary Care Provider [phone] Encounter Details Date Type Department Care Team [...] Description 03/22/2025 9:00 AM EST Office Visit [facility] DENTAL [address] [place] [address] Michael Green 12/25/2025 9:00 AM EDT Office Visit [facility] MEDICAL [address] [place] [address] Ashley Sanchez FNP [address] [place] [address] documented as of this encounter Visit Diagnoses Not on filedocumented in this encounter Care Teams Inorganic Chemist Relationship Specialty Start Date End Date Kathy Hernandez PA-C PCP - General Family Medicine 05/06/22 12/19/24 Meng Eugenesstori PCP - General Family Medicine 12/20/24 01/22/25 Anna Vo DO [address] [place] [address] PCP - General Gluer Machine Operator 01/23/25 documented as of this encounter
--- OUTSIDE RECORDS SUMMARY | 2025-02-06 23:18 | XMS_ITS | Encounter Summary ---
Author Organization [employer] Address [address] [facility] [address] [place] [address] Care Team Providers Care Clinical Technician Name Role Phone PcpMeng Unassigned Primary Care Provider Anna Candelario DO Primary Care Provider [phone] Encounter Details Date Type Department Care Team (Late st Contact Info) Description 12/24/2024 Orders Only [facility] MED[facility] [address] [place] [address] Provider, MD Elizabet Social History Tobacco Use [...] AM EST Office Visit [facility] DENTAL [address] [place] [address] Michael Green 12/25/2025 9:00 AM EDT Office Visit [facility] MEDICAL [address] [place] [address] Ashley Sanchez FNP [address] [place] [address] documented as of this encounter Procedures Procedure [...] on filedocumented in this encounter Care Teams Clinical Technician Relationship Specialty Start Date End Date PcpMeng Unassigned PCP - General Family Medicine 12/20/24 01/22/25 Anna Vo DO [address] [place] [address] PCP - General Blanket Folder 01/23/25 documented as of this encounter
--- OUTSIDE RECORDS SUMMARY | 2025-02-06 23:19 | XMS_ITS | Encounter Summary ---
Author Organization [employer] [facility] Address [address] [facility] 7t [place] [address] Care Team Providers Care Kiln Operator Name Role Phone Kathy Hernandez PA-C Primary Care Provider Unav ailable Pcp, [place] Unassigned Primary Care Provider U navailAnna Mckeon DO Primary Care Provider [phone] Encounter Details Date Type Department Care Team (Late st Contact Info) Description 05/06/[address] [facility] MEDICAL [address] [place] [address] Kathy Hernandez PA-C Social History Tobacco Use [...] Description 03/22/2025 9:00 AM EST Office Visit [facility] DENTAL [address] [place] [address] Michael Green 12/25/2025 9:00 AM EDT Office Visit [facility] MEDICAL [address] [place] [address] Ashley Sanchez FNP [address] [place] [address] documented as of this encounter Procedures Procedure Name Priority Date/Time Associated Diagnosis Comments HEMOGLOBIN A1C Routine 07/20/2022 8:33 AM EDT COMPREHENSIVE METABOLIC PANEL Routine 07/20/2022 8:33 AM EDT documented in this encounter Results * (ABNORMAL) Comprehensive Metabolic Panel (07/20/2022 8:33 AM EDT) Glucose 127(H) (70-99) MG/DL [facility] BUN 13 (8-23) MG/DL [facility] Creatinine, Serum 1.2 (0.7-1.2) MG/DL [facility] Sodium 139 (133-145) MMOL/L [facility] Potassium 5.2 (3.6-5.2) MMOL/L [facility] Chloride 102 (98-107) MMOL/L [facility] Bicarbonate 23 (22-29) MMOL/L [facility] Anion Gap 14 (4-17) [facility] Albumin 4.6 (3.4-4.8) GM/DL [facility] Calcium 10.0 (8.6-10.5) MG/DL [facility] Bilirubin, Total 0.6 (0-1.2) MG/DL [facility] Total Protein 6.9 (6.2-8.2) GM/DL [facility] Albumin/Globulin Ratio 2.0 [facility] AST 29 (0-40) U/L [facility] Alkaline Phosphatase 72 (40-129) U/L [facility] ALT (SGPT) 53(H) (0-41) U/L [facility] eGFR Creatinine 67 ML/MIN/1.7 3 M2 [facility] Comment: Creatinine based estimated glomerular filtration (eGFR) in adults is calculated using the National Kidney Foundation recommended 2020 CKD-EPI equation. Estimates GFR from serum creatinine, age and sex. Testing performed or reported by [facility], a Service of [facility], [address] [place] [address] Ann-Marie Cervantes MD, Curing Bin Operator [facility]# [id number] 07/20/2022 8:33 AM EDT 07/20/2022 8:34 AM EDT us Kathy Hernandez PA-C LAB BLOOD ORDERABLES Final Result [place] [address] [place] [address] * (ABNORMAL) Hemoglobin A1c (07/20/2022 8:33 AM EDT) Hemoglobin A1C 6.2(H) (4.0-5.6) % [facility] Comment: MONITORING: In known diabetic patients, hemoglobin A1c targets should be discussed with health care provider. DIAGNOSTIC USE: The [place] Diabetes Association (ADA) and the World Health [...] Supplement 1 Testing performed or reported by [facility] [employer], a Service of [facility], [address] [place] [id number] Ann-Marie Cervantes MD, Curing Bin Operator [facility]# [id number] 07/20/2022 8:33 AM EDT 07/20/2022 8:34 AM EDT Kathy Hernandez PA-C LAB BLOOD ORDERABLES Final Result [facility] [address] [place] [id number] documented in this encounter Visit Diagnoses Not on filedocumented in this encounter Care Teams Kiln Operator Relationship Specialty Start Date End Date Kathy Hernandez PA-C PCP - General Family Medicine 05/06/22 12/19/24 Meng Eugene Unassigned PCP - General Family Medicine 12/20/24 01/22/25 Anna Vo DO [address] [place] [address] PCP - General Imaging Administrator 01/23/25 documented as of this encounter
--- OUTSIDE RECORDS SUMMARY | 2025-02-06 23:19 | XMS_ITS | Encounter Summary ---
Author Organization [employer] Address [address] [address] [facility] [facility] [address] [place] [address] Care Team Providers Care Finance Associate Name Role Phone Kathy Hernandez PA-C Primary Care Provider Unav juliet PcpMeng Unassigned Primary Care Provider U Anna Maurer DO Primary Care Provider [phone] Encounter Details Date Type Department Care Team (Late st Contact Info) Description 07/30/2024 Orders Only [facility] [address] [place] [address] PcpMeng Unassigned Social History Tobacco Use Types [...] 03/22/2025 9:00 AM EST Office Visit [facility] DENTAL [address] [place] [address] Michael Green 12/25/2025 9:00 AM EDT Office Visit [facility] MEDICAL [address] [place] [address] Ashley Sanchez FNP [address] [place] [address] documented as of this encounter Procedures Procedure Name Priority Date/Time Associated Diagnosis Comments STRESS TEST WITH MYOCARDIAL PERFUSION Routine 07/25/2024 10:52 AM EDT documented in this encounter Results * Stress test with myocardial perfusion (07/25/2024 10:52 AM EDT) Meng Unasstori Pcp CV STRESS PROCEDURES Fin al Result documented in this encounter Visit Diagnoses Not on filedocumented in this encounter Care Teams Finance Associate Relationship Specialty Start Date End Date Kathy Hernandez PA-C PCP - General Family Medicine 05/06/22 12/19/24 Meng Eugene Unassigned PCP - General Family Medicine 12/20/24 01/22/25 Anna Vo DO [address] [place] [address] PCP - General Human Factors Specialist 01/23/25 documented as of this encounter
--- OUTSIDE RECORDS SUMMARY | 2025-02-06 23:19 | XMS_ITS | Clinical Summary ---
Author Organization [facility] Address [address] [place], [place] [id number] Phone Care Team Providers Care Powered Bridge Specialist Name Role Phone Pcp, Unknown Primary Care [...] patient's age to complete this topic IPV VACCINES Aged Out No longer eligi ble based on patient's age to complete this topic MENINGOCOCCAL VACCINES (ACWY) Aged Out No longer eligible based on patient's age to complete this topic MENINGOCOCCAL VACCINES (B) Aged Out N o longer eligible based on patient's age to complete this topic Medical Devices Not on file Insurance MEDICARE PART A & B [facility] MEDICARE PART A & [place] [facility] [place] PART [place] & B [employer] MEDICARE PART A & B [place] B [facility] Care Teams Powered Bridge Specialist Relationship Specialty Start Date End Date Pcp, Unknown PCP - General 04/02/20 Additional Source Comments The information contained in this document represents components of the legal health record. It is not the complete legal health record.[facility]
--- OUTSIDE RECORDS SUMMARY | 2025-02-06 23:19 | XMS_ITS | Clinical Summary ---
Author Organization [employer] Address [address] [address] [place] [address] Care Team Providers Care Ux Information Architect Name Role Phone Anna Vo Primary Care Provider [phone] Allergies No known active allergies Medications fluocinonide [...] Description 12/24/2024 11:30 AM EDT Office Visit [facility] DENTAL [address] [place] [address] Nuvia Keys LLD 12/24/2024 9:20 AM EDT Office Visit [facility] MEDICAL [address] [place], [place] [id number] Ashley Sanchez FNP Irritation of ear, left (Primary Dx); Prediabetes; Lipoma of neck; Injury of left ankle, sequela 12/24/2024 Orders Only [facility] MEDICAL [address] [facility] [place] [address] Ashley Sanchez FNP 12/24/2024 Orders Only [facility] MEDICAL [address] [place] [address] Provider, MD Elizabet 12/24/2024 Travel from Last [...] 9:00 AM EST Office Visit [facility] DENTAL [address] [place] [address] Michael Green 12/25/2025 9:00 AM EDT Office Visit [facility] MEDICAL [address] [place] [address] Ashley Sanchez FNP [address] [place] [address] Health Maintenance Due Date Last Done Comments CT Colonography 1957 Dental Prophylaxis 1957 FIT DNA/Cologuard 1957 FIT 1957 FOBT 1957 Sigmoidoscopy 1957 Hepatitis C Screening 1975 Pneumococcal Vaccine: 50+ Years (1 of 2 - PCV) 1976 RSV Patients and Patients Aged 60 years or older (1 - Risk 50-74 years 1-dose series) 2007 Zoster Vaccines (1 of 2) 2007 Dental Oral Exam 07/16/2021 01/14/2021 Dental X-Ray: Full Mouth 01/16/2024 01/14/2021 Influenza Vaccine (#1) 2025 Postp oned from 11/19/2024 (Patient Refused) Alcohol/Substance Use Screening 12/24/2025 12/24/2024 COVID-19 Vaccine ( season) 2025 Postponed from 11/19/2024 (Patient Refused) Depression Screening 12/24/2025 12/24/2024, 12/25/19 25 Diabetes: Hemoglobin A1C 12/24/2025 025, 12/28/2023, 07/20/2022, Additional history exists SDOH Screening 12/24/2025 12/24/2024 Tobacco Screening 12/24/2025 12/24/2024 Dental X-Ray: Bitewings 12/25/2025 12/24/2024, 01/14 Colonoscopy 01/02/2027 01/03/2024, 12/16/2020 Colorectal Cancer Screening 01/02/2027 Lipid Panel 12/27/2028 12/28/2023, 05/04/2022, 11/17/2020, Additional history exists DTaP/Tdap/Td Vaccines (2 [...] Unknown 12/24/2024 10:10 AM EDT Ashley Sanchez MEDICAL TRANSCRIBER POINT OF CARE TEST ENTER/ EDIT ORDERABLES Final Result * Albumin, Random Urine W/O Creatinine (12/24/2024 9:40 AM EDT) Albumin, Urine 3.3 Not Estab. ug/mL [facility] 12/24/2024 9:40 AM EDT 12/24/2024 Narrative Resulting Agency Comment Performed at: [address] [place] [id number] Digital Media Associate: Kandi Posey MD, Phone: [phone] us Ashley Sanchez MEDICAL TRANSCRIBER LAB URINE ORDERABLES Ashlyn l Result Performing Organization Address City/[facility]/ZIP Co de Phone Number [facility] [address] [place] [address] * Colonoscopy (01/03/2024 11:52 AM EDT) Anatomical [...] AM EDT Performed at: 01 - [facility] [address] [id number] Digital Media Associate: Kandi Posey MD, Phone: [phone] Kathy Hernandez PA-C LAB BLOOD ORDERABLES Final Result Performing Organization Address City/[facility] Co de Phone Number [facility] 1 from Last 3 Months or Most Recently Relevant to Health Maintenance Insurance [facility] MEDICARE ADVANTAGE HMO [facility] Care Teams Ux Information Architect Relationship Specialty Start Date End Date Anna Vo DO [address] [place] [address] [place] OLIVERA [address] PCP - General Plant Accountant 01/23/25
--- OUTSIDE RECORDS SUMMARY | 2025-02-06 23:19 | XMS_ITS | Encounter Summary ---
Author Organization [employer] Address [address] [facility] 7[address] [place] [address] Care Team Providers Care Benefits Consulting Analyst Name Role Phone Kathy Hernandez PA-C Primary Care Provider Unav ailbarrington Pcp, [place] Unassigned Primary Care Provider U araseliailAnna Mckeon DO Primary Care Provider [phone] Encounter Details Date Type Department Care Team (Late st Contact Info) Description 08/02/2023 Orders Only [facility] [address] [place] [address] Kathy Hernandez PA-C Arthralgia of multiple joints [...] 9:00 AM EST Office Visit [facility] DENTAL [address] [place] [address] Michael Green 12/25/2025 9:00 AM EDT Office Visit [facility] MEDICAL [address] [place] [address] Ashley Sanchez FNP [address] [place] [address] documented as of this encounter Visit Diagnoses Diagnosis Arthralgia of multiple joints Pain in joint, multiple sites documented in this encounter Care Teams Benefits Consulting Analyst Relationship Specialty Start Date End Date Kathy Hernandez PA-C PCP - General Family Medicine 05/06/22 12/19/24 Meng Eugene Unassigned PCP - General Family Medicine 12/20/24 01/22/25 Anna Vo DO [address] [place] [id number] PCP - General Office Rn 01/23/25 documented as of this encounter
--- OUTSIDE RECORDS SUMMARY | 2025-02-06 23:19 | XMS_ITS | Encounter Summary ---
Author Organization [employer] Address [address] [facility] 7[address] [place] [address] Care Team Providers Care Molding Process Technician Name Role Phone Kathy Hernandez PA-C Primary Care Provider Unav ailable Pcp [place] Unassigned Primary Care Provider U navailAnna Mckeon DO Primary Care Provider [phone] Encounter Details Date Type Department Care Team (Late st Contact Info) Description 04/14/2023 Orders Only [facility] [address] [place] [address] Kathy Hernandez PA-C Social History Tobacco Use [...] Description 03/22/2025 9:00 AM EST Office Visit [facility] DENTAL [address] [place] [address] Michael Green 12/25/2025 9:00 AM EDT Office Visit [facility] MEDICAL [address] [place], [place] [phone] Ashley Sanchez FNP [address] [place] [address] documented as of this encounter Procedures Procedure Name Priority Date/Time Associated Diagnosis Comments PATHOLOGY REPORT (HISTOPATHOLOGY) Routine 04/08/2023 documented in this encounter Results * Pathology Report (04/08/2023) Tissue Kathy Hernandez PA-C LAB PATHOLOGY ORDERABLES Ed ited Result - Final documented in this encounter Visit Diagnoses Not on filedocumented in this encounter Care Teams Molding Process Technician Relationship Specialty Start Date End Date Kathy Hernandez PA-C PCP - General Family Medicine 05/06/22 12/19/24 Meng Eugene Unassigned PCP - General Family Medicine 12/20/24 01/22/25 Anna Vo DO [address] [place] [id number] PCP - General Adjunct Faculty For Medical Terminology 01/23/25 documented as of this encounter
== END 2025-02-06 13:02 | disposition home or self-care (01) ==
LOC: HO.HCS 12:13
PROVIDERS: Visit Provider Internal Medicine
DX: R07.2 Precordial pain (principal); I71.43 Infrarenal abdominal aortic aneurysm, without rupture
CPT/HCPCS: 93010; 99215; G2211

== ENCOUNTER → 2025-02-06 12:13 | Outpatient (BNVA) | payer MEDICARE, SELFPAY | PROVIDERS: Visit Provider Internal Medicine | DX: R07.2 Precordial pain (principal); I71.43 Infrarenal abdominal aortic aneurysm, without rupture; E78.5 Hyperlipidemia, unspecified; Z72.0 Tobacco use | CPT/HCPCS: 93005; 99212 ==

== ENCOUNTER 2025-02-27 11:43 | Observation (INO) | payer MEDICARE, SELFPAY ==
[2025-02-27] VITALS (8 sets, daily range): BP systolic 123–163; BP diastolic 74–88; PULSE 68–92; RESP 16–24; TEMP 36.2–36.7; O2SAT 88–94; BMI 27.3; BMI 28.0
--- NOTE | ~2025-02-27 | XR_ITS ---
EXAMINATION: XR CHEST 2 VIEWS HISTORY: SOB, CP COMPARISON: There are no prior studies available for comparison. FINDINGS: PA and lateral views of the chest are submitted. The lungs are hyperinflated, consistent with COPD. The lungs are clear. There is no pleural effusion, pneumothorax, or pulmonary vascular congestion. The heart is normal in size. The bones are intact. A portion of a stent graft is seen in the upper abdominal aorta. XR/XR chest 2V IMPRESSION: COPD. The lungs are clear. Electronically signed by: Glen Wilson MD 02/27/2025 12:06 PM [facility]
--- NOTE | ~2025-02-27 | CT_ITS ---
EXAMINATION: CT CHEST ANGIOGRAPHY WITH IV CONTRAST INDICATION: sob COMPARISON: Correlation is made with PA and lateral views of the chest performed earlier in the day. TECHNIQUE: Helical CT scan of the chest was performed following administration of intravenous contrast (65 mL Omnipaque 350). The contrast bolus was timed to optimally opacify the pulmonary arteries. Thin sections were obtained through the pulmonary arteries. Coronal and sagittal reformatted images were generated. 3D/MIP reconstructed images are also obtained and reviewed. This CT exam was performed with one or more of the following dose reduction techniques: automated exposure control, adjustment of the mA and/or kV according to patient size, use of iterative reconstruction technique. DLP: 323 mGy-cm CHEST: THYROID: The thyroid gland is unremarkable. PULMONARY ARTERIES: No intraluminal filling defects are identified within the pulmonary arteries to suggest pulmonary emboli. LUNGS: There is mild emphysema. There is mild bronchial wall thickening and opacification in the lower lobes, suggestive of bronchitis. There are no focal airspace opacities. MEDIASTINUM: There is no mediastinal lymphadenopathy. DIAZ: There is no hilar lymphadenopathy. CARDIOVASCULATURE: The heart is normal in size. There is no pericardial effusion. The thoracic aorta is normal in caliber. DEGREE OF CORONARY CALCIFICATION: not evaluable, due to dense contrast in the coronary arteries PLEURA: There is no pleural effusion. No pneumothorax. MAIN AIRWAYS: The mainstem bronchi and proximal branches are patent. AXILLA: There is no axillary lymphadenopathy. UPPER ABDOMEN: The visualized portions of the liver, spleen, and adrenals are unremarkable. A portion of the stent graft is seen in the upper abdomen. BONES AND SOFT TISSUES: Unremarkable. CT/CT angio chest PE protocol IMPRESSION: 1. No evidence of pulmonary emboli. 2. Mild bronchial wall thickening and opacification in the lower lobes, suggestive of bronchitis. 3. Mild emphysema. Because mild emphysema is an independent risk factor for lung cancer, consider entering the patient into a program of yearly lung cancer screening with low dose chest CT. Electronically signed by: Glen Wilson MD 02/27/2025 02:40 PM [facility]
--- NOTE | 2025-02-27 11:44 | ED_ITS ---
HPI - SOB/Dyspnea General Chief Complaint: Dyspnea Stated Complaint: diff breathing Time Seen by Provider: 02/27/25 11:56 Source: patient Mode of arrival: ambulatory Limitations: no limitations History of Present Illness ED Provider: MYRON Boss HPI Narrative: Chief Complaint: ?I?m having trouble breathing.? History of Present Illness: Patient presents with difficulty breathing that limits her ability to walk short distances. He reports he ?can take a deep breath? but still feels short of breath. History is notable for heart failure and AAA orders, with aneurysm repair performed in July. He is scheduled for a cardiac catheterization (?camera into my heart?) on the at [facility] through his local career resource specialist. He denies chest pain, jaw or shoulder pain, nausea, or vomiting. He endorses fever and chills over the past weekend but none today. He denies any recent travel or flights. He currently smokes approximately one pack of cigarettes per day and states her last cigarette was on Tuesday. No sick contacts Related Data Previous Rx's ?Medication ?Instructions ?Recorded aspirin 81 mg tablet,delayed 81 mg PO DAILY #90 tabs 1 04/08/24 release (Adult Aspirin Regimen) metoprolol succinate 50 mg 50 mg PO DAILY #90 tabs tablet,extended release 24 hr (Toprol XL) nitroglycerin 0.4 mg sublingual 0.4 mg sublingual Q5M PRN chest 02/06/25 tablet pain #30 tabs Allergies Allergy/AdvReac Type Severity Reaction Status Date / Time No Known Allergies Allergy Verified 02/27/25 11:47 Review of Systems 2 Review of Systems: Yes all other systems are reviewed and are negative [facility] Past Medical History Attestation statement: The following information was validated with the patient. Source: old records reviewed and nursing notes reviewed Medical History AAA (abdominal aortic aneurysm) History of skin cancer Primary hypertension Surgical History Hx of removal of neck cyst (~2021) Hx of colonoscopy Hx of total knee replacement (2023) Hx of bilateral inguinal hernia repair (2023) History of arthroplasty of left ankle (~2009) H/O hernia repair History of appendectomy (2023) Family History Family History Father Thoracic aortic aneurysm Social History Social History Household Members: Significant Other Housing: House Are you a primary healthcare corporate account director to a significant other at home: No Do you presently have visiting nurse or other home services: No Patient Tobacco Use Status: Current everyday Tobacco user Tobacco use type: Cigarette Cigarette Packs Per Day: 0.5 Cigarettes Per Day: 10.0 Smoked in Last 30 Days: No e-Cigarette/Vaping Use: Currently Using Use of substances other than those prescribed or required for medical reasons: No Advance Directives: No Advance Directives Information Provided: Yes Do you have a plan to hurt others: No Plan Physical Exam 2 Exam: Exam: Appearance: Alert.? Oriented X3.? No acute distress.? Head: Normocephalic, atraumatic, no step-offs or deformities Eyes: Pupils equal, round and reactive to light.? Neck: Normal inspection.? Neck supple.? CVS: Normal heart rate and rhythm.? Pulses normal.? Respiratory: No respiratory distress.? Breath sounds mild expiatory wheezing b/l.? Abdomen: Soft and nontender.? Skin: Skin warm and dry.? Normal skin color.? Normal skin turgor.? Extremities: No lower extremity edema.? No calf ttp. 5/5 strength to bilateral upper and lower extremities Back: No midline tenderness, no C-spine tenderness, full range of motion, no CVA tenderness bilaterally Neuro: Oriented X 3.? No motor deficit.? No sensory deficit. CN 2-12 intact Vital Signs: Vital Signs: Last Vital Signs Temp 97.8 F 02/27/25 12:14 Pulse 82 02/27/25 14:13 Resp 18 02/27/25 14:13 BP 163/74 H 02/27/25 14:13 Pulse Ox 92 02/27/25 14:13 O2 Del Method Room Air 02/27/25 14:13 BMI result Body Mass Index 27.3 vss Course Course Course Narrative: This is an RME: Additional HPI, ROS, PE not included below will be deferred to primary provider. RME assessment and note performed by: Venessa Mccain PA-C This is a [id number], with a hx of AAA repair in July 2024, HTN, who presents to the ER with complaints of SOB, chest tightness x 5 days. Endorsing subjective fevers and chills. 50 pack year hx. Lungs with inspiratory and expiratory wheezes noted throughout all lung nguyen. Plan: Labs, EKG, CXR, viral swabs Reevaluation(s) Reevaluation #1: CBC unremarkable. Chemistry no acute findings needing intervention. Troponin negative, EKG non ischemic. Lactic acid 1.1. Viral test negative. Dimer + --> CTA ordered Time: 13:00 Reevaluation #2: CTA showing no evidence of PE. Mild bronchial wall thickening and opacification in the lower lobes suggesting bronchitis. Mild emphysema. Plan hospital admission patient got up to go to the bathroom he desatted to 88% on room air. Time: 15:16 Medications Administered Discontinued Medications Generic Name Dose Route Start Last Admin Trade Name Freq PRN Reason Stop Dose Admin Albuterol Sulfate 5 mg/ 0 mg 02/27/25 12:21 02/27/25 12:26 Albuterol/Ipratropium 3 ml INHALE 02/27/25 12:22 1 each ONCE ONE Administration Ceftriaxone Sodium 1 gm/ 50 mls @ 100 mls/hr 02/27/25 12:17 02/27/25 13:20 Sodium Chloride IV 02/27/25 12:46 Infused ONCE ONE Infusion Magnesium Sulfate 2 gm in 50 mls @ 25 mls/hr 02/27/25 12:32 02/27/25 12:40 Magnesium Sulfate/H2o IV 02/27/25 14:31 25 mls/hr ONCE ONE Administration Iohexol 100 ml 02/27/25 14:03 02/27/25 14:03 Iohexol 350 Mg/Ml 100 Ml Infus..Btl IV 02/27/25 14:04 65 ml ONCE ONE Administration Methylprednisolone Sodium Succinate 125 mg 02/27/25 12:18 02/27/25 12:36 Methylprednisolone Sod Succ 125 Mg/2 Ml Vial IVPUSH 02/27/25 12:19 125 mg ONCE ONE Administration Medical Decision Making Medical Decision Making MDM Narrative: Patient with history of heart failure and AAA repair presenting with exertional shortness of breath. Differential includes pulmonary embolism, pneumonia/upper respiratory infection, and decompensated heart failure. Problem #1: Dyspnea ? rule out pulmonary embolism Assessment: Patient with new shortness of breath requires evaluation for PE. Plan: * Obtain screening blood test to evaluate for blood clot. * If positive, proceed with chest scan for definitive evaluation. Problem #2: Possible Pneumonia / Upper Respiratory Infection Assessment: Reports prior fever/chills; no cough documented. Needs evaluation to exclude infectious etiology. Plan: * Clinical assessment and diagnostic studies as indicated to rule out pneumonia or URI. Problem #3: History of Heart Failure ? evaluate for decompensation Assessment: Known heart failure; dyspnea could represent volume overload. Plan: * Check for signs of heart failure (labs/imaging as appropriate). Problem #4: Tobacco Use Assessment: Smokes ~1 PPD; last cigarette Tuesday. Plan: * Cessation discussed Follow-up: Will revisit after initial tests are resulted and formulate further management based on findings. Lab Data 02/27/25 12:02/27/25 12:09 Labs: Lab Results 02/27/25 02/27/25 02/27/25 Range/Units 12: 12:30 12:31 WBC 8.1 (4.8-10.8) X10*3/uL RBC 5.34 (4.60-5.80) X10*6/uL Hgb 16.6 (14.0-18.0) g/dl Hct 47.1 (42.0-52.0) % MCV 88.2 (80.0-98.0) fL MCH 31.1 (27.0-33.0) pg MCHC 35.2 (31.0-36.0) g/dl RDW 12.6 (11.0-16.0) % Plt Count 179 (160-400) X10*3/uL MPV 10.2 (9.4-12.4) fL Immature Gran % (Auto) 0.2 (0.0-0.4) % Neut % (Auto) 61.4 (45-73) % Lymph % (Auto) 28.7 (20-40) % [place] % (Auto) 8.7 (2-11) % Eos % (Auto) 0.6 (0-4) % Baso % (Auto) 0.4 (0-2) % Lymph # (Auto) 2.3 (1.2-4.9) X10*3/uL [place] # (Auto) 0.7 (0.1-1.2) X10*3/uL Eos # (Auto) 0.1 (0.0-0.4) X10*3/uL Baso # (Auto) 0.0 (0.0-0.2) X10*3/uL Abs Immat Gran (auto) 0.02 (0.00-0.03) X10*3/uL Absolute Neuts (auto) 4.9 (2.0-8.3) x10*3/uL Absolute Nucleated RBC 0.000 (0.0-0.012) X10*3/uL Nucleated RBC % (auto) 0.0 (0.0-0.2) /100WBC D-Dimer High Sensitivty 568 NG/ML Sodium 137 (135-145) mmol/L Potassium 4.4 (3.3-5.1) mmol/L Chloride 106 (96-108) mmol/L Carbon Dioxide 25 (22-29) mmol/L Anion Gap 10 L (12-20) BUN 15 (9-16) mg/dL Creatinine 0.97 (0.5-1.4) mg/dL Estim Creat Clear Calc 76.3 Estimated GFR > 60 Random Glucose 112 (60-115) mg/dL Lactic Acid 1.1 (0.5-2.0) mmol/L Calcium 9.8 D (8.4-10.2) mg/dL Magnesium 2.2 (1.6-2.6) mg/dL Total Bilirubin 0.4 (0.0-1.0) mg/dL Direct Bilirubin 0.1 (0.0-0.5) mg/dL AST 35 (5-37) U/L ALT 56 H (0-40) U/L Alkaline Phosphatase 73 (39-117) U/L Troponin I High Sens < 2.7 (<3.5-35.0) ng/L Total Protein 7.1 (6.5-8.0) g/dL Albumin 4.6 (3.5-5.0) g/dL Influenza Type A (PCR) NEGATIVE (Negative) Influenza Type B (PCR) NEGATIVE (Negative) RSV RNA Qual (PCR) NEGATIVE (Negative) SARS-CoV-2 RNA (RT-PCR) NEGATIVE (Negative) Critical Care Time Critical Care Time Critical Care Time: Yes Total Critical Care Time: 35 Attestation: I attest to this time spent taking care of the patient, obtaining history, physical, reviewing labs, imaging, treatment of patients condition +/- specialist/hospitalist consult +/- procedure Discharge Plan Discharge Clinical Impression: S/P AAA (abdominal aortic aneurysm) repair, Bronchitis, Shortness of breath Patient Disposition: Admitted As Inpatient Print Language: Urdu
--- NOTE | 2025-02-27 11:46 | ECG_ITS ---
Test Reason : SOB Blood Pressure : */* mmHG Vent. Rate : 70 BPM Atrial Rate : 70 BPM P-R Int : 142 ms QRS Dur : 74 ms QT Int : 358 ms P-R-T Axes : 73 27 55 degrees QTcB Int : 386 ms Normal sinus rhythm Possible Left atrial enlargement Low voltage QRS Cannot rule out Anterior infarct , age undetermined Abnormal ECG No previous ECGs available Referred By: Venessa Mccain Electronically Signed By: SEPIDEH ALVARADO MD
[2025-02-27 12:14] LABS: MANUAL DIFF FLAG NO
[2025-02-27 12:15] LABS: Hematocrit 47.1 % (42.0-52.0); Hemoglobin 16.6 g/dl (14.0-18.0); Imm Gran Abs Auto 0.02 X10*3/uL (0.00-0.03); Imm Gran Pct Auto 0.2 % (0.0-0.4); Lymphocytes Absolute Auto 2.3 X10*3/uL (1.2-4.9); Mean Corpuscular HGB Conc 35.2 g/dl (31.0-36.0); Mean Corpuscular Hemoglobin 31.1 pg (27.0-33.0); Mean Corpuscular Volume 88.2 fL (80.0-98.0); NRBC Abs Auto 0.000 X10*3/uL (0.0-0.012); NRBC Pct Auto 0.0 /100WBC (0.0-0.2); Platelet Count 179 X10*3/uL (160-400); Red Blood Count 5.34 X10*6/uL (4.60-5.80); White Blood Count 8.1 X10*3/uL (4.8-10.8)
[2025-02-27] MEDS: Albuterol Sulfate 5 MG, Albuterol/Iprat 2.5/0.5MG 3 ML 3 ML INHALE (12:26)
[2025-02-27 12:30] LABS: Alanine Aminotransferase 56 U/L (0-40); Albumin Level 4.6 g/dL (3.5-5.0); Alkaline Phosphatase 73 U/L (39-117); Anion Gap 10 (12-20); Aspartate Amino Transferase 35 U/L (5-37); Blood Urea Nitrogen 15 mg/dL (9-16); Calcium 9.8 mg/dL (8.4-10.2); Carbon Dioxide 25 mmol/L (22-29); Chloride 106 mmol/L (96-108); Creatinine Clr Calc Pharmacy 76.3; Estimated Glomerular Filt Rate > 60; Magnesium 2.2 mg/dL (1.6-2.6); Potassium 4.4 mmol/L (3.3-5.1); Sodium 137 mmol/L (135-145); Total Protein 7.1 g/dL (6.5-8.0)
[2025-02-27] MEDS: Magnesium Sulfate/H2O 2 GM/50 ML PIGGYBACK IV (12:40)
[2025-02-27 12:42] LABS: Troponin-I High Sensitivity < 2.7 ng/L (<3.5-35.0)
[2025-02-27 12:53] LABS: D Dimer High Sensitivity 568 NG/ML
[2025-02-27 13:18] LABS: Resp Syncy Virus RNA Qual PCR NEGATIVE (Negative); SARS COV2 PCR INHOUSE NEGATIVE (Negative)
[2025-02-27] MEDS: iohexoL 350 MG/ML 100 ML INFUS..BTL IV (14:03)
--- NOTE | 2025-02-27 15:27 | PHA.MEDREC ---
Addendum entered by Margot Fuller RPh 02/27/25 17:38: MED REC REVIEWED BY [facility] Original Note: Pharmacy Consult ? Medication Reconciliation Pharmacy has completed the medication reconciliation. Spoke with pt and he confirmed his medications. Pt confirmed he has not been able to take any of his medications since Thursday 02/22; pt started not feeling well and he stopped his medications. Pt taking Vitamin D3 QD, Vitamin C QD and Zinc QD but states he does not know the dose of those at this time.
--- NOTE | 2025-02-27 16:31 | P.HPHOSP_ITS ---
History of Present Illness Date of Service: 02/27/25 Chief Complaint: sob 69 year male with smoker who presents with several days of sob, cough no sputum no fever, some chest pain. CXR no PNA, CT no PE but demonstrate emphysema changes. Reported hypoxic to 88% no 92 on or room air. Treated with Inhalers, steroid and mag. Review of Systems 2 Review of Systems: Gen: no fever Resp:+ sob, + cough CV: no chest, no OCAMPO, no leg edema GI: No n/v, no abd pain Neuro: No confusion Yes all other systems are reviewed and are negative PENDING SALE TO [facility] Medical History AAA (abdominal aortic aneurysm) History of skin cancer Primary hypertension Family History Father Thoracic aortic aneurysm Surgical History Hx of removal of neck cyst (~2021) Hx of colonoscopy Hx of total knee replacement (2023) Hx of bilateral inguinal hernia repair (2023) History of arthroplasty of left ankle (~2009) H/O hernia repair History of appendectomy (2023) Social History Household Members: Significant Other Housing: House Are you a primary palliative care nurse practitioner to a significant other at home: No Do you presently have visiting nurse or other home services: No Patient Tobacco Use Status: Current everyday Tobacco user Tobacco use type: Cigarette Cigarette Packs Per Day: 0.5 Cigarettes Per Day: 10.0 Smoked in Last 30 Days: No e-Cigarette/Vaping Use: Currently Using Use of substances other than those prescribed or required for medical reasons: No Advance Directives: No Advance Directives Information Provided: Yes Do you have a plan to hurt others: No Plan Meds Allergies Allergy/AdvReac Type Severity Reaction Status Date / Time No Known Allergies Allergy Verified 02/27/25 11:47 Physical Exam 2 Vital Signs and Narrative: Vital Signs: Last Vital Signs Temp 97.8 F 02/27/25 12:14 Pulse 82 02/27/25 14:13 Resp 18 02/27/25 14:13 BP 163/74 H 02/27/25 14:13 Pulse Ox 92 02/27/25 14:13 O2 Del Method Room Air 02/27/25 14:13 BMI result Body Mass Index 27.3 Const: Other: General: AO X 3, no acute distress Resp: CTA bilateral CVS: S1,S2,RRR GI: +BS, NT, no distention Skin: No rash Neuro: motor grossly intact Psych: appropriate affect Results Labs 02/27/25 12:09 02/27/25 12:09 Labs: Laboratory Results - last 24 hr 02/27/25 02/27/25 02/27/25 12:09 12:30 12:31 MCV 88.2 MCH 31.1 MCHC 35.2 RDW 12.6 Plt Count 179 MPV 10.2 Immature Gran % (Auto) 0.2 Neut % (Auto) 61.4 Lymph % (Auto) 28.7 [place] % (Auto) 8.7 Eos % (Auto) 0.6 Baso % (Auto) 0.4 Lymph # (Auto) 2.3 [place] # (Auto) 0.7 Eos # (Auto) 0.1 Baso # (Auto) 0.0 Abs Immat Gran (auto) 0.02 Absolute Neuts (auto) 4.9 Absolute Nucleated RBC 0.000 Nucleated RBC % (auto) 0.0 D-Dimer High Sensitivty 568 Anion Gap 10 L Estim Creat Clear Calc 76.3 Estimated GFR > 60 Random Glucose 112 Lactic Acid 1.1 Calcium 9.8 D Magnesium 2.2 Total Bilirubin 0.4 Direct Bilirubin 0.1 AST 35 ALT 56 H Alkaline Phosphatase 73 Troponin I High Sens < 2.7 Total Protein 7.1 Albumin 4.6 Influenza Type A (PCR) NEGATIVE Influenza Type B (PCR) NEGATIVE RSV RNA Qual (PCR) NEGATIVE SARS-CoV-2 RNA (RT-PCR) NEGATIVE Imaging Radiologist's Impressions: Impressions Chest X-Ray 02/27/25 11:59 IMPRESSION: COPD. The lungs are clear. Electronically signed by: Glen Wilson MD 02/27/2025 12:[address] [facility] Chest CTA 02/27/25 13:51 IMPRESSION: 1. No evidence of pulmonary emboli. 2. Mild bronchial wall thickening and opacification in the lower lobes, suggestive of bronchitis. 3. Mild emphysema. Because mild emphysema is an independent risk factor for lung cancer, consider entering the patient into a program of yearly lung cancer screening with low dose chest CT. Electronically signed by: Glen Wilson MD 02/27/2025 02:40 PM EST Assessment and Plan (1) Primary hypertension: Status: Acute (2) COPD (chronic obstructive pulmonary disease): Status: Acute Plan 69/m male smoker here wit sob, cough, mild hypoxia now resolved, bronchitis on CT plan: Observe overnight, steroid, inhalers, cough meds, empiric doxy for bronchitis, proble discharge in the morning. smoking cessation advised. NRT. continue home meds for chronic condition. Lovenox for dvt prophylaxis. Full code Quality Stroke Does the patient have a stroke diagnosis?: No VTE Prior VTE?: No VTE Risk Level:: Medical - moderate - high VTE Device Contraindication: Treatment Not Indicated VTE Drug Contraindication: N/A - Med Ordered
[2025-02-27 16:43] LABS: NT Pro B Type Natriuretic Pept 75.9 pg/mL (<300)
[2025-02-27] MEDS: guaiFENesin LA 600 MG TAB.ER.12H PO (17:32)
[2025-02-27] MEDS: Albuterol/Iprat 2.5/0.5MG 3 ML AMPUL.NEB INHALE (19:30)
--- NOTE | 2025-02-27 20:20 | PC.NURSE ---
Pt from home, came in for several days of sob worsening in the last 1 week, cough no sputum no fever, and some chest pain. Pt hx COPD, current smoker. In ED CT no PE but demonstrate emphysema changes, Pt became hypoxic to 88% with ambulation now 92 on or room air. Treated with Inhalers, steroid and mag. Plan to Observe overnight, steroid, inhalers, cough meds, empiric doxy for bronchitis, proble discharge in the morning. Pt A&Ox3, ambulates independently with steady gait. 20G IV to L AC.
--- NOTE | 2025-02-27 20:22 | PC.NURSE ---
Assumed care of this Pt at 1900.
[2025-02-27] MEDS: 0.9 % Sodium Chloride Flush 3 ML SYRINGE IVFLUSH (21:31)
[2025-02-28 04:00] VITALS: BP 156/70; PULSE 86; RESP 18; TEMP 36.2; O2SAT 93
[2025-02-28 07:34] VITALS: BP 139/69; PULSE 84; RESP 18; TEMP 36.7; O2SAT 93
[2025-02-28] MEDS: guaiFENesin LA 600 MG TAB.ER.12H PO (08:00)
[2025-02-28] MEDS: Metoprolol Succinate ER 50 MG TAB.ER.24H PO (08:00)
[2025-02-28] MEDS: Aspirin Enteric Coated 81 MG TABLET.DR PO (08:00)
[2025-02-28] MEDS: 0.9 % Sodium Chloride Flush 3 ML SYRINGE IVFLUSH (08:01)
[2025-02-28] MEDS: Albuterol/Iprat 2.5/0.5MG 3 ML AMPUL.NEB INHALE ×2 (08:10→11:05)
[2025-02-28 08:13] VITALS: PULSE 83; RESP 18; O2SAT 94
--- NOTE | 2025-02-28 10:14 | PM.DS ---
DS: Providers Provider Date of Service: 02/28/25 Date of admission: 02/27/25 16:29 Date of discharge: 02/28/25 Primary care physician: DAVID Mackenzie DS: Diagnosis Discharge Diagnosis (1) Primary hypertension: Status: Acute (2) COPD (chronic obstructive pulmonary disease): Status: Acute DS: Summary Hospital Course Hospital Course: admission hpi Chief Complaint: sob 69 year male with smoker who presents with several days of sob, cough no sputum no fever, some chest pain. CXR no PNA, CT no PE but demonstrate emphysema changes. Reported hypoxic to 88% no 92 on or room air. Treated with Inhalers, steroid and mag. Hospital course: Patient was admitted overnight and treated with bronchidilatros by Neb, IV steroid, Mucinex and empric doxycyline. He has not been hypoxic since admission and sating about 93 on room air. He has no wheezing or increased WOB on exam. Smoking cessation has been advised. He will be discharged with Albuterol, Prednisone for 4 more days, Mucinex and Doxycyline for bronchitis. Of note RSV, Covid and Flu are negative as is respiratory panel Time Attestation Discharge Coordination Time (in mins): 45 Quality: Safe Use of Opioids Does Pt have an Active Cancer Diagnosis on the Problem List?: No Quality: Stroke Does the patient have a stroke diagnosis?: No Physical Exam Vital Signs: Vital Signs: Last Vital Signs Temp 98.0 F 02/28/25 07:34 Pulse 83 02/28/25 08:13 Resp 18 02/28/25 08:13 BP 139/69 02/28/25 07:34 Pulse Ox 93 02/28/25 07:34 O2 Del Method Room Air 02/28/25 07:34 BMI result Body Mass Index 28.0 DS: Data Data Completed and Pending Completed studies during hospitalization [Text1]: Procedures Restriction of Abdominal Aorta with Intraluminal Device, Percutaneous Approach (08/06/24) Labs on day of discharge: Laboratory Results - last 24 hr 02/27/25 02/27/25 02/27/25 12:09 12:30 12:31 WBC 8.1 RBC 5.34 Hgb 16.6 Hct 47.1 MCV 88.2 MCH 31.1 MCHC 35.2 RDW 12.6 Plt Count 179 MPV 10.2 Immature Gran % (Auto) 0.2 Neut % (Auto) 61.4 Lymph % (Auto) 28.7 [place] % (Auto) 8.7 Eos % (Auto) 0.6 Baso % (Auto) 0.4 Lymph # (Auto) 2.3 [place] # (Auto) 0.7 Eos # (Auto) 0.1 Baso # (Auto) 0.0 Abs Immat Gran (auto) 0.02 Absolute Neuts (auto) 4.9 Absolute Nucleated RBC 0.000 Nucleated RBC % (auto) 0.0 D-Dimer High Sensitivty 568 Sodium 137 Potassium 4.4 Chloride 106 Carbon Dioxide 25 Anion Gap 10 L BUN 15 Creatinine 0.97 Estim Creat Clear Calc 76.3 Estimated GFR > 60 Random Glucose 112 Lactic Acid 1.1 Calcium 9.8 D Magnesium 2.2 Total Bilirubin 0.4 Direct Bilirubin 0.1 AST 35 ALT 56 H Alkaline Phosphatase 73 Troponin I High Sens < 2.7 NT-Pro-B Natriuret Pep 75.9 Total Protein 7.1 Albumin 4.6 Influenza Type A (PCR) NEGATIVE Influenza Type B (PCR) NEGATIVE RSV RNA Qual (PCR) NEGATIVE SARS-CoV-2 RNA (RT-PCR) NEGATIVE Discharge Plan Discharge Anticipated Discharge Date/Time: 02/28/25 09:52 Patient Disposition: Home, Self-Care Discharge Diagnosis: copd exacerbation, acute bronchitis Referrals: Ashley Sanchez FNP [Primary Care Provider, [facility]] - 1 Week Discharge Medications: New prednisone 20 mg tablet 40 mg PO DAILY Qty: 4 0RF albuterol sulfate [Ventolin HFA] 90 mcg/actuation HFA aerosol inhaler 1 puff inhalation QID PRN (Reason: shortness of breath or wheezing) Qty: 8.5 0RF guaifenesin [Mucinex] 600 mg tablet extended release 12hr 600 mg PO BID PRN (Reason: congestion) Qty: 14 0RF doxycycline monohydrate 100 mg capsule 100 mg PO BID Qty: 10 0RF Continued aspirin [Adult Aspirin Regimen] 81 mg tablet,delayed release (DR/EC) 81 mg PO DAILY Qty: 90 3RF metoprolol succinate [Toprol XL] 50 mg tablet extended release 24 hr 50 mg PO DAILY Qty: 90 1RF nitroglycerin 0.4 mg tablet, sublingual 0.4 mg sublingual Q5M PRN (Reason: chest pain) Qty: 30 5RF Rx Instructions: do not exceed 3 doses per episode Discharge Orders: Discharge Order (Routine); Ordered 02/28/25 Ordered By: Farhad Mendez Diet: Advance to usual diet Activity on Discharge: As tolerated Stand Alone Forms: Patient Portal Discharge page Print Language: Yoruba Care Plan Goals: recovery from copd exacerbation and acute bronchitis Health Concerns: copd exacerbation acute bronchitis smoking history Plan of Treatment: take prednisone, inhalers, mucinex and doxycyline as directed avoid smoking, follow up with your Doctor in a week, call for appointment Rest for a few days Assessment: see above
--- NOTE | 2025-02-28 11:03 | MHC.CM.PN ---
PT REPORTS HE LIVES WITH HIS AND IS INDEPENDENT WITH CARE HE HAS NO DME AND NO SERVICES COPY OF HCP REQUESTED ALTHOUGH PT STATES HE BELIEVES IT WAS ON FILE PCP: MICHELLE JEFFERSON OBSERVATION NOTICE DELIVERED PT CLEARED TO DC HOME TODAY, SELF CARE TO TRANSPORT
[2025-02-28 11:07] VITALS: PULSE 78; RESP 18; O2SAT 95
[2025-02-28 11:35] VITALS: BP 149/68; PULSE 91; RESP 18; TEMP 36.7; O2SAT 93
[2025-02-28 11:39] LABS: Chlamydia pneumoniae PCR Not Detected (Not Detect.); Coronavirus 229E PCR Not Detected (Not Detect.); Coronavirus HKU1 PCR Not Detected (Not Detect.); Coronavirus NL63 PCR Not Detected (Not Detect.); Coronavirus OC43 PCR Not Detected (Not Detect.); RSV PCR Not Detected (Not Detect.); Rhino/Enterovirus PCR Not Detected (Not Detect.)
[2025-02-28 12:31] LABS: Influenza A H1 PCR Not Detected (Not Detect.); Influenza A H1-2009 PCR Not Detected (Not Detect.); Influenza A H3 PCR Not Detected (Not Detect.); SARS-CoV-2 PCR Not Detected (Not Detect.)
== END 2025-02-28 12:57 | disposition home or self-care (01) ==
LOC: HO.ED 15:17 → HO.EDOVER 16:43 → HO.S3 19:24
PROVIDERS: Physician Assistant; Physician Assistant Medical; Admitting Provider Internal Medicine; Emergency Provider Emergency Medicine; PCP Nurse Practitioner Family; Visit Provider Internal Medicine
DX: J44.1 Chronic obstructive pulmonary disease with (acute) exacerbation (principal); J20.9 Acute bronchitis, unspecified; R06.02 Shortness of breath; R07.9 Chest pain, unspecified; I10 Essential (primary) hypertension; Z98.890 Other specified postprocedural states; Z03.818 Encounter for observation for suspected exposure to other biological agents ruled out
CPT/HCPCS: 36415; 71046; 71275; 80048; 80076; 83605; 83735; 83880; 84484; 85025; 85379; 87040; 87633; 87637; 93005; 94640; 96365; 96366; 96368; 96375; 96376; 99221; 99285; J0696; J2919; J3475; Q9967

== ENCOUNTER → 2025-02-27 11:46 | Outpatient (BNV) | payer MEDICARE, SELFPAY | PROVIDERS: Emergency Provider Emergency Medicine; Visit Provider Internal Medicine Cardiovascular Disease | DX: R94.31 Abnormal electrocardiogram [ECG] [EKG] (principal); R06.02 Shortness of breath | CPT/HCPCS: 93010 ==

== ENCOUNTER → 2025-02-27 11:46 | Outpatient (BNV) | payer MEDICARE, SELFPAY | PROVIDERS: Emergency Provider Emergency Medicine; Visit Provider Radiology Diagnostic Radiology | DX: J43.9 Emphysema, unspecified (principal); J98.09 Other diseases of bronchus, not elsewhere classified; R91.8 Other nonspecific abnormal finding of lung field; J44.9 Chronic obstructive pulmonary disease, unspecified | CPT/HCPCS: 71046; 71275 ==

== ENCOUNTER → 2025-02-27 12:18 | Outpatient (BNV) | payer MEDICARE, SELFPAY | PROVIDERS: Emergency Provider Emergency Medicine; Visit Provider Internal Medicine | DX: J44.1 Chronic obstructive pulmonary disease with (acute) exacerbation (principal); I10 Essential (primary) hypertension | CPT/HCPCS: 99239 ==